=== PATIENT | male | born 1980 | race Caucasian/White ===

== ENCOUNTER 2017-02-14 08:54 | Inpatient (IN) | payer BC, OTHER ==
[~2017-02-14] VITALS: Ht 185.4 cm; Wt 93.0 kg
--- NOTE | 2017-02-14 15:20 | NUR ---
PRE-ADMISSION NOTE RECEIVED PT AT INTAKE DOWNSTAIRS. PT A/OX4, PT APPEARED HIGHLY AGITATED, IRRITABLE, ANXIOUS, RESTLESS, TREMORS SEEN AND ENLARGED PUPIL SIZE. PT REPORTED HAVING STOMACH CRAMPS, MUSCLE AND JOINT ACHES, RUNNY NOSE, TEARING, HAVING CHILLS, AND FEELINGS OF ALTERNATING HOT AND COLD. PT INITIAL VS WERE BP: 120/63, P: 70, RR: 18, O2 SAT: 97%. PT IS AMBULATORY WITHOUT ASSISTANCE. PT STATES HE HAS NKA TO DRUGS OR FOOD. PT STATES HE HAS NO MEDICAL HX AND NO HX OF SZ. EDUCATED PT WITH UNIT RULES.
[2017-02-14] MEDS ORDERED: diphenhydrAMINE 50 MG CAPSULE PO PRN (15:45)
[2017-02-14] MEDS ORDERED: BUPRENORPHINE HCL 2 MG TAB.SUBL SL PRN (15:45)
[2017-02-14] MEDS ORDERED: LOPERAMIDE HCL 2 MG CAPSULE PO PRN ×2 (15:45)
[2017-02-14] MEDS ORDERED: LORAZEPAM 2 MG/1 ML VIAL IM PRN (15:45)
[2017-02-14] MEDS ORDERED: MIRALAX 17 GM POWD.PACK PO PRN (15:45)
[2017-02-14] MEDS ORDERED: ACETAMINOPHEN 325 MG TABLET PO PRN (15:45)
[2017-02-14] MEDS ORDERED: DIAZEPAM 10 MG TABLET PO PRN (15:45)
[2017-02-14] MEDS ORDERED: ONDANSETRON ODT 4 MG TAB.RAPDIS SL PRN (15:45)
[2017-02-14] MEDS ORDERED: DICYCLOMINE HCL 20 MG TABLET PO PRN (15:45)
[2017-02-14] MEDS ORDERED: ONDANSETRON 4 MG/2 ML VIAL IM PRN (15:45)
[2017-02-14] MEDS ORDERED: MAG HYDROX/AL HYDROX/SIMETH 30 ML LIQUID UDC PO PRN (15:45)
[2017-02-14] MEDS ORDERED: DIAZEPAM 5 MG TABLET PO PRN (15:45)
--- NOTE | 2017-02-14 15:50 | NUR ---
ADMISSION NOTE PT IS ADMITTED ON THE UNIT ON 02/14/17 AT 1545 FOR BENZO, ETOH, OPIATE WITHDRAWALS. PT SKIN AND BODY CHECK IS COMPLETED. SKIN IS WARM, DRY, INTACT, AND NO CONTRABAND FOUND. PT WEIGHS 205 LBS, HT 6 FEET 1 IN. PT A/OX4, PT APPEARED HIGHLY AGITATED, IRRITABLE, ANXIOUS, RESTLESS, TREMORS SEEN AND ENLARGED PUPIL SIZE. PT REPORTED HAVING STOMACH CRAMPS, MUSCLE AND JOINT ACHES, RUNNY NOSE, TEARING, HAVING CHILLS, AND FEELINGS OF ALTERNATING HOT AND COLD. PT RESPIRATIONS EVEN AND UNLABORED. LUNG SOUNDS CLEAR BILATERALLY. DENIES SOB. PT DENIES HALLUCINATIONS AT THIS TIME. PT ABD SOFT AND TENDER. CAP REFILL <3 SEC. PT COWS WERE 17 AND CIWA 23. PT INITIAL VS WERE BP: 120/63, P: 70, RR: 18, O2 SAT: 97%. PT IS AMBULATORY WITHOUT ASSISTANCE. PT STATES HE HAS NKA TO DRUGS OR FOOD. PT STATES HE HAS A PMH OF SEVERE ANXIETY AND NO HX OF SZ. PT IS THE PRIMARY SOURCE OF INFORMATION. SPEECH IS CONSISTENT AND COHERENT. PT STATES HE DOES NOT HAVE A PCP, REQUESTED TO BE FULL CODE, REFUSED PNA AND FLU VACCINATIONS. PT IS ON A REGULAR DIET, ON FALL AND SZ PRECAUTIONS. PT NOT A CANDIDATE FOR MRSA. PT STATES LONGEST SOBRIETY IS 6 MONTHS IN 2012. PT STATES HE HAS NO FAMILY HX OF DRUG ABUSE. PT DENIES SI/HI. PT BROUGHT HOME MED: SEROQUEL 100 MG. PT STATES HE SMOKED A PACK OF CIGARETTES DAILY. SUBSTANCE ABUSE HX: 1. XANAX AND/OR KLONOPIN 20 MG DAILY FOR THE PAST 1 YEAR. LAST USED 20 MG 02/13/17 AT 0700. PT HAS BEEN USING BENZOS FOR 17 YRS. 2. ETOH VODKA A 5TH DAILY FOR THE PAST YR. LAST USED A 5TH OF VODKA AT 02/13/17 AT 0700. PT HAS BEEN USING FOR 17 YRS. 3. HEROIN 2 GRAMS DAILY IV FOR THE PAST 1 YEAR. LAST USED 2 GRAMS AT 02/13/17 A T 0700. PT HAS BEEN USING SINCE 2012. 4. PT STATED HE HAS BEEN PRESCRIBED SUBUTEX 24 MG PO DAILY FOR THE PAST 3 YEARS. LAST USED IS UNKNOWN. P 5. PT STATE HE USES COCAINE UNKNOWN AMOUNT OCCASIONALLY. LAST USED UNKNOWN. PT STATE HE DOES NOT REMEMBER WHEN HE STARTED USING COCAINE. PT HAS BEEN ESCORTED TO HIS ROOM. PT ORIENTED TO UNIT, ROOM, SMOKING RULES, UNIT RULES, HOW TO USE THE CALL LIGHT, AND VERBALIZED UNDERSTANDING. SIDE RAILS UP X2, BED IN LOWEST POSITION. CALL LIGHT WITHIN REACH. ALL ADMITTING ORDERS HAVE BEEN PLACED. PT REFUSED SARAN B1 IM INJECTION.
[2017-02-14 16:00] VITALS: BP 120/63
[2017-02-14] MEDS ORDERED: THIAMINE HCL 200 MG/2 ML VIAL IM ONE (16:00)
[2017-02-14] MEDS: BUPRENORPHINE HCL 2 MG TAB.SUBL SL SCH ×2 (16:07→20:12)
[2017-02-14] MEDS: DIAZEPAM 10 MG TABLET PO SCH ×2 (16:07→20:12)
[2017-02-14 16:39] LABS: *AMPHETAMINE, URINE NEGATIVE (NEGATIVE); *BARBITURATE, URINE NEGATIVE (NEGATIVE); *CANNABINOID, URINE POSITIVE (NEGATIVE); *COCCAINE, URINE POSITIVE (NEGATIVE); *OPIATE, URINE NEGATIVE (NEGATIVE); *PHENCYCLIDINE SCREEN,URINE NEGATIVE (NEGATIVE)
[2017-02-14] MEDS: GABAPENTIN 400 MG CAPSULE PO SCH ×2 (17:45→20:11)
[2017-02-14 17:50] VITALS: BP 122/67
[2017-02-14] MEDS ORDERED: BUPRENORPHINE HCL 2 MG TAB.SUBL SL ONE (18:30)
[2017-02-14] MEDS ORDERED: DIAZEPAM 10 MG TABLET PO ONE (18:30)
--- NOTE | 2017-02-14 18:35 | NUR ---
One time Valium and Subutex Pt reports chills, skin crawling, headache, nausea, body aches, runny nose, anxiety. He is noted to be agitated and restless. COWS [address] Gay. Orders received for one time Valium and Subutex.
[2017-02-14] MEDS ORDERED: TIZA4CAP PO (18:44)
[2017-02-14] MEDS ORDERED: QUET100T PO (18:44)
[2017-02-14] MEDS ORDERED: GABA800T2 PO (18:45)
--- NOTE | 2017-02-14 18:59 | NUR ---
END OF SHIFT COWS AND CIWAS ELEVATED ON ADMISSION. DR DEGROOT ORDERED SUBUTEX AND VALIUM TO BE ADMINISTERED. MEDICATIONS NOT EFFECTIVE. COWS AND CIWAS NOT AFFECTED. NOTIFIED MD. ONE TIME ORDER WAS PLACED FOR SUBTEX AND VALIUM. ENCOURAGED PT TO INCREASE FLUIDS TO FACILITATE IN DETOX PROCESS. SIDE RAILS UP X2, CALL LIGHT WITHIN REACH. SZ AND FALL PRECAUTIONS TAKEN. WILL GIVE ALL PERTINENT DATA AND ENDORSEMENT TO WARRANTY CLERK NURSE.
--- NOTE | 2017-02-14 19:30 | NUR ---
One time Valium and Subutex reassessment One time Valium effective at reducing CIWA score to 10. One time Subutex effective at reducing COWS to 9. Pt reports feeling somewhat better and a little less anxious but is still experiencing some symptoms.
[2017-02-14 20:00] VITALS: BP 119/78
--- NOTE | 2017-02-14 20:00 | NUR ---
2000 Patient received awake, alert, somewhat jittery and anxious in appearance and standing at nurse's station, requesting pass to go downstairs for smoke. Patient responds to nurse's greeting and introduction with eye contact and requests for, " I have to have my Seroquel that I take every night to sleep and Zanaflex, the muscle relaxer. These are must haves!" Patient is oriented to person, place, day, date, time and his personal situation. Patient's skin is noted clean, warm, dry and intact, though patient states, " When you detox from opiates, your back sweats mostly." Patient's back noted dry at this time. Patient denies any specific pain but states that he does feel anxious and shakey. Patient then states, " Right now, I need to go and have a cigarette". Explanation given to patient that V/S and new nurse assessment needs to be done with him, before he is allowed to go smoke. Patient then escorted to his room # [id number] for nurse assess and V/S. Gait is steady. Vital signs are: 98.7 -70-20 119/78, O2 Sat 98%, COWS 7, CIWA 7. Patient answers nurse assess questions in abrupt and impatient manner, though he is overall fairly cooperative with some prompting. Patient was admitted this afternoon for: Xanax/Klonopin, Alcohol (Vodka), Heroin, Subutex and Cocaine withdrawal and he will be on both a 5-Day Subutex and a 5-Day Valium taper for withdrawal symptoms. Bed is locked and in lowest position, bed rails are up X 2 and call light on patient's bed. Patient went downstairs to [facility] for smoke after V/S and assessment.
[2017-02-14 20:09] LABS: ETHANOL < 3 MG/DL (0-0)
[2017-02-14 20:10] LABS: BASOPHILS % (AUTO) 0.4 % (0.0-2.0); EOSINOPHILS # (AUTO) 0.2 K/uL (0.0-0.7); HEMATOCRIT 40.7 % (36.7-47.1); HEMOGLOBIN 12.8 g/dL (12.5-16.3); LYMPHOCYTES # (AUTO) 1.6 K/uL (20.0-40.0); LYMPHOCYTES % (AUTO) 35.8 % (20.5-51.5); MEAN CORPUSCULAR HEMOGLOBIN 20.7 uug (23.8-33.4); MEAN CORPUSCULAR HGB CONC 31 g/dL (32.5-36.3); MEAN CORPUSCULAR VOLUME 65.8 fL (73.0-96.2); MONOCYTES # (AUTO) 0.4 K/uL (2.0-10.0); NEUTROPHILS # (AUTO) 2.1 K/uL (1.8-8.9); NEUTROPHILS % (AUTO) 48.8 % (38.5-71.5); PLATELET COUNT (AUTO) 193 K/uL (152-348); RED BLOOD CELL COUNT(AUTO) 6.19 MIL/uL (4.06-5.63); WHITE BLOOD COUNT (AUTO) 4.4 K/uL (3.6-10.2)
[2017-02-14 20:21] LABS: NEUTROPHILS % (MANUAL) 0 % (42-75)
[2017-02-14] MEDS ORDERED: QUETIAPINE FUMARATE 100 MG TABLET PO ONE (20:30)
[2017-02-14 20:37] LABS: ALANINE AMINOTRANSFERASE 60 U/L (16-63); ALKALINE PHOSPHATASE 58 U/L (50-136); AMYLASE 62 U/L (25-115); ASPARTATE AMINOTRANSFERASE 23 U/L (15-37); BILIRUBIN,TOTAL 0.5 mg/dL (0.2-1.0); CARBON DIOXIDE 28 mmol/L (21-32); CHLORIDE 103 mmol/L (98-107); CREATININE 1.2 mg/dL (0.6-1.3); GLUCOSE 102 mg/dL (74-106); MAGNESIUM 1.9 mg/dL (1.8-2.4); POTASSIUM 4.5 mmol/L (3.5-5.1); TOTAL PROTEIN, SERUM 7.3 g/dL (6.4-8.2); UREA NITROGEN, BLOOD 15 mg/dL (7-18)
[2017-02-14] MEDS ORDERED: QUETIAPINE FUMARATE 100 MG TABLET ONE (20:43)
--- NOTE | 2017-02-15 | NUR ---
Patient is sleeping soundly with eyes closed and respirations quiet, deep, even, unlabored at 12. Patient does not wish to be awakened for V/S to be done at this time. COWS, CIWA ordered Q 4hrs while awake.
--- NOTE | 2017-02-15 04:00 | NUR ---
Patient refused to be awakened at this time for V/S. V/S deferred. Eyes closed and respirations even, unlabored at 12.
--- NOTE | 2017-02-15 06:30 | NUR ---
0630 Patient slept intermittently for a total of 5 hours and he had 3 voids and no stools. Patient had no prn medications this shift. V/SS afebrile, last COWS 7, last CIWA 7 at 1999. Patient did not wish to be disturbed for V/S and he was sleepy and uncooperative when aroused for assessment. Patient is presently resting comfortably with eyes closed and respirations unlabored at 12.
--- NOTE | 2017-02-15 07:50 | NUR ---
START OF SHIFT RECEIVED PT RESTING IN BED, A/O X4. PT APPEARED HIGHLY AGITATED, IRRITABLE, ANXIOUS, RESTLESS. PT REPORTED HAVING STOMACH CRAMPS, MUSCLE AND JOINT ACHE, ANXIETY, CHILLS, AND FEELING HOT. PT RESPIRATIONS EVEN AND UNLABORED. DENIES SOB. PT DENIES HALLUCINATIONS AT THIS TIME. ENOURAGED PT TO DRINK MORE FLUIDS TO FACILITATE DETOX PROCESS. SIDE RAILS UP X2, BED IN LOWEST POSITION. CALL LIGHT WITHIN REACH. WILL CONTINUE TO MONITOR.
[2017-02-15 08:00] VITALS: BP 121/54
[2017-02-15] MEDS ORDERED: TUBERCULIN,PURIF.PROT.DERIV. 5 TU/0.1 ML TEST ID ONE (09:00)
[2017-02-15] MEDS: GABAPENTIN 400 MG CAPSULE PO SCH (09:08)
[2017-02-15] MEDS: THIAMINE HCL 100 MG TABLET PO SCH (09:08)
[2017-02-15] MEDS: MULTIVITAMINS,THERAPEUTIC TABLET PO SCH (09:09)
[2017-02-15] MEDS: FOLIC ACID 1 MG TABLET PO SCH (09:09)
[2017-02-15] MEDS: DIAZEPAM 10 MG TABLET PO SCH ×7 (09:09→21:00)
[2017-02-15] MEDS: BUPRENORPHINE HCL 2 MG TAB.SUBL SL SCH ×4 (09:09→20:17)
[2017-02-15] MEDS: DIAZEPAM 10 MG TABLET PO PRN ×3 (10:22→18:54)
--- NOTE | 2017-02-15 10:24 | NUR ---
CIWA 21 Valium 20mg po prn given Pt extremely agitated and anxious
--- NOTE | 2017-02-15 11:25 | NUR ---
REASSESSMENT VALIUM 2O MG PO PRN WAS GIVEN AND UPON REASSESSMENT PT STATED MED HELPED HIS ANXIETY SOMEWHAT. WILL CONTINUE TO MONITOR.
[2017-02-15 12:00] VITALS: BP 110/68
[2017-02-15] MEDS ORDERED: PHENOBARBITAL 32.4 MG TABLET PO ONE (12:30)
[2017-02-15] MEDS: GABAPENTIN 300 MG CAPSULE PO SCH ×3 (12:31→20:14)
--- NOTE | 2017-02-15 14:11 | NUR ---
CIWA 26 Valium 20mg po prn given C/O anxiety/12/15 Agitation 12/15
--- NOTE | 2017-02-15 15:10 | NUR ---
REASSESSMENT PT GIVEN VALIUM 20 MG PO PRN AND AT REASSESSMENT PT STATED IT WAS EFFECTIVE BUT NOTED THAT IT WAS MAINLY DUE TO HAVING BOTH VALIUM AND PHENOBARBITAL.
[2017-02-15 16:00] VITALS: BP 117/69
--- NOTE | 2017-02-15 18:54 | NUR ---
PRN VALIUM 20 MG PO PRN GIVEN FOR PT C/O OF HIGH ANXIETY AND S/S OF W/D. CIWA 20.
--- NOTE | 2017-02-15 19:15 | NUR ---
START OF SHIFT Received 36 year old male patient admitted on 02/14/17 for Benzodiazepine, ETOH, Heroin, Subutex and Cocaine. Pt is full code with NKA. He reports a PMHx of anxiety. He reports using Xanax/Klonopin 20 mg daily for 1 year. Last dose was 02/13/17. ETOH (vodka)1/5th daily for 1 year. Last dose was 02/13/17. Heroin 2 gram IV daily for 1 year. Last dose was 02/13/17. Subutex 24 mg daily. And occasional use of cocaine. He is placed on a 5 day subutex and 5 day modifed valium taper and is tolerating well. Per endorsement, pt received phenobarbital x1 and PRN Valium 20 mg . Pt is alert and oriented x4, noted to be anxious and restless. Breathing even and unlabored. Safety measures in place. Will continue to monitor.
--- NOTE | 2017-02-15 19:26 | NUR ---
END OF SHIFT PT A/O X4. PT APPEARED HIGHLY AGITATED, IRRITABLE, ANXIOUS, AND RESTLESS. PT REPORTED HAVING STOMACH CRAMPS, MUSCLE AND JOINT PAIN, ANXIETY, CHILLS, AND FEELING HOT. PT WAS SEEN PACING IN THE HALLWAYS THROUGHOUT THE DAY. PT RESPIRATIONS EVEN AND UNLABORED. DENIES SOB AND NAUSEA. PT DENIES HALLUCINATIONS AT THIS TIME. MD CHANGED VALIUM TAPER DOSAGE TO 20 MG AND ADDED ONE TIME ORDER OF PHENOBARBITAL AT 1230 AND ONE FOR 2100. PT REPORTED LESS ANXIETY AFTER BEING PHENOBARBITAL MED. PT REF TB; NOTIFIED. ENOURAGED PT TO DRINK MORE FLUIDS TO FACILITATE DETOX PROCESS. SIDE RAILS UP X2, BED IN LOWEST POSITION. CALL LIGHT WITHIN REACH. WILL GIVE ALL PERTINENT DATA AND ENDORSEMENT TO KAIAKO KOHANGA REO NURSE.
[2017-02-15 20:00] VITALS: BP 116/65
[2017-02-15] MEDS ORDERED: PHENOBARBITAL 32.4 MG TABLET PO SCH (21:00)
[2017-02-15] MEDS: QUETIAPINE FUMARATE 100 MG TABLET PO PRN (22:40)
--- NOTE | 2017-02-15 22:40 | NUR ---
PRN SEROQUEL Pt complains of inability to fall asleep. PRN Seroquel administered as ordered. Safety measures in place. Will continue to monitor effectiveness.
--- NOTE | 2017-02-15 23:40 | NUR ---
PRN SEROQUEL REASSESSMENT PRN medication effective. Pt lying in bed with eyes closed noted to be asleep. Breathing even and unlabored. Safety measures in place. Will monitor.
[2017-02-16 00:02] VITALS: BP 122/79
--- NOTE | 2017-02-16 04:00 | NUR ---
VITALS REFUSED, COWS/CIWA DEFERRED 0400 vitals refused. COWS and CIWA deferred d/t pt lying in bed with eyes closed noted to be asleep. Breathing even and unlabored. Safety measures in place. Will monitor.
--- NOTE | 2017-02-16 07:06 | NUR ---
END OF SHIFT Pt is a 36 year old male patient admitted on 02/14/17 for Benzodiazepine, ETOH, Heroin, Subutex and Cocaine. Pt is full code with NKA. He reports a PMHx of anxiety. He continues on a 5 day Subutex and 5 day modified Valium taper and is tolerating well. He received a one time order of phenobarbital and at 2240 received PRN Seroquel. He slept a total of 6 hrs, Intake: 500mL, Void: x2, BM:0, COWS:Pt is alert and oriented x4, noted to be anxious and restless. Breathing even and unlabored. Safety measures in place. Will endorse to AM shift.
--- NOTE | 2017-02-16 07:30 | NUR ---
START OF SHIFT Pt 36 y/o male admitted for benzo, etoh, opiate withdrawal. Pt received in room awake pacing. Pt alert and oriented to name, place, and time. Perrla. Skin warm and moist to touch. Respirations even and unlabored. Pt anxious and restless. Pressured speech noted. Pt very irritable this morning. It was reported that pt slept for 6 hours this morning. Bed on lowest position with side rails x2 up for safety. Call light within reach. No distress noted at this time.
[2017-02-16 08:00] VITALS: BP 110/60
[2017-02-16] MEDS: THIAMINE HCL 100 MG TABLET PO SCH (08:23)
[2017-02-16] MEDS: FOLIC ACID 1 MG TABLET PO SCH (08:23)
[2017-02-16] MEDS: GABAPENTIN 300 MG CAPSULE PO SCH ×4 (08:24→20:13)
[2017-02-16] MEDS: MULTIVITAMINS,THERAPEUTIC TABLET PO SCH (08:24)
[2017-02-16] MEDS: BUPRENORPHINE HCL 2 MG TAB.SUBL SL SCH ×4 (08:25→20:13)
[2017-02-16] MEDS: DIAZEPAM 10 MG TABLET PO SCH ×3 (08:29→16:14)
--- NOTE | 2017-02-16 08:30 | NUR ---
PRN Pt with c/o nausea. Zofran ODT prn per MD order given and tolerated well.
[2017-02-16] MEDS ORDERED: DIAZEPAM 10 MG TABLET PO SCH ×2 (09:00→21:00)
[2017-02-16] MEDS ORDERED: BUPRENORPHINE HCL 2 MG TAB.SUBL SL SCH (09:00)
[2017-02-16] MEDS ORDERED: DIAZEPAM 10 MG TABLET PO ONE (09:27)
--- NOTE | 2017-02-16 09:30 | NUR ---
PRN EVAL Pt denies any nausea at this time.
--- NOTE | 2017-02-16 09:33 | NUR ---
ONE TIME Pt with ciwa=10. MD aware with orders for valium 10mg po prn per MD order given and tolerated well.
--- NOTE | 2017-02-16 10:33 | NUR ---
ONE TIME EVAL Pt with ciwa=5.
[2017-02-16] MEDS ORDERED: DIAZEPAM 5 MG TABLET PO PRN (11:30)
[2017-02-16] MEDS ORDERED: OXCARBAZEPINE 300 MG TABLET PO ONE (11:30)
[2017-02-16] MEDS ORDERED: DIAZEPAM 10 MG TABLET PO PRN (11:30)
[2017-02-16 12:00] VITALS: BP 114/66
[2017-02-16 12:07] LABS: HEPATITIS B SURFACE AG Negative (Negative)
--- NOTE | 2017-02-16 13:14 | NUR ---
MD COMMUNICATION Notified Dr. Diaz of patients behavior, agitated and mood changes, pt appears hyper. T.O for Seroquel 25mg Q4H PRN. Primary nurse made aware.
[2017-02-16] MEDS ORDERED: QUETIAPINE FUMARATE 25 MG TABLET PO PRN (13:15)
--- NOTE | 2017-02-16 13:30 | NUR ---
PRN REFUSED Pt offered seroquel po prn per MD order. Pt refused stating, " I don't want seroquel! It just makes me sleepy!". Explained to pt that he is very anxious and agitated and that the seroquel po prn per MD order would help. Pt still refused.
[2017-02-16] MEDS: DIAZEPAM 10 MG TABLET PO PRN ×3 (14:04→22:14)
--- NOTE | 2017-02-16 14:05 | NUR ---
PRN Pt with ciwa=10. Valium 10mg po prn per MD order given and tolerated well.
--- NOTE | 2017-02-16 15:04 | NUR ---
PRN EVAL Pt with Ciwa=7 noted.
[2017-02-16 16:00] VITALS: BP 126/79
--- NOTE | 2017-02-16 16:25 | NUR ---
PRN REFUSAL Pt agitated. Pt offered seroquel po prn per MD order, but refused.
--- NOTE | 2017-02-16 16:26 | NUR ---
PT REFUSAL Pt very anxious and restless. Pt offered vitaril po prn per order, but refused. Addendum: 02/16/17 at 1627 by NICHOLAS INGRAM RN incorrect title PRN REFUSAL
--- NOTE | 2017-02-16 16:26 | NUR ---
PRN REFUSAL Pt very anxious and restless. Pt offered catapres po prn per MD order , but refused.
--- NOTE | 2017-02-16 18:14 | NUR ---
PRN pt with ciwa=11. Pt very agitated, hyperverbal, and restless.
--- NOTE | 2017-02-16 18:48 | NUR ---
END OF SHIFT Pt 36 y/o male admitted for benzo, etoh, opiate withdrawal. Pt alert and oriented to name, place, and time. Perrla. Skin warm and slightly moist to touch. Respirations even and unlabored. Bilateral hand tremors noted. Pt with episode of chills and sweats this afternoon. Pt with periods of anxiety and agitation throughout the day, but pt was refusing prn medications to help with agitation and anxiety throughout the day. Pt hard to redirect at times throughout the day. Pt was intrusive at times this morning, getting very close. Pt isolative to room throughout the day. Pt did not attend group activity. Pt was seen by MD today. Pt partially medication compliant and tolerated well. Bed on lowest position with side rails x2 up for safety. Call light within reach. No distress noted at this time.
--- NOTE | 2017-02-16 19:53 | NUR ---
Start of Shift Notes Received 36 y/o male admitted on 01/15/2017 for benzo, etoh, opiate withdrawal. Px alert and oriented to name, place, and time. Perrla. Skin warm and moist to touch. Px has NKA, on regular diet and Full Code. During the rounds at 1930, px verbalized that his anxiety is very high, body aches is 9/10, has hot/cold chills, stomach cramps, and tremors are mild. Respirations even and unlabored. Bed on lowest position with side rails x2 up for safety. Call light within reach. We'll continue to monitor.
[2017-02-16 20:00] VITALS: BP 129/75
[2017-02-16] MEDS: OXCARBAZEPINE 300 MG TABLET PO SCH (20:13)
[2017-02-16] MEDS: IBUPROFEN 600 MG TABLET PO PRN (20:14)
--- NOTE | 2017-02-16 20:14 | NUR ---
PRN Ibuprofen Px complained of body aches 10/ as verbalized. Px refused Robaxin. Motrin 600 mg/tab, 1 tab given PO as PRN med. We'll continue to monitor.
[2017-02-16] MEDS: HYDROXYZINE PAMOATE 25 MG CAPSULE PO PRN (22:14)
[2017-02-16] MEDS: QUETIAPINE FUMARATE 100 MG TABLET PO PRN (22:15)
[2017-02-16] MEDS: CLONIDINE HCL 0.1 MG TABLET PO PRN (22:15)
--- NOTE | 2017-02-16 22:15 | NUR ---
PRN meds Px complained of high anxiety and needed to sleep. Seroquel 100 mg/tab, 1 tab; Vistaril 25 mg/cap, 2caps; Clonidine 0.1 mg/tab, 1 tab; Valium 10 mg/tab, 1 tab given PO as PRN meds. We'll continue to monitor.
[2017-02-16] MEDS: MAGNESIUM HYDROXIDE 30 ML LIQUID UDC PO PRN (22:27)
--- NOTE | 2017-02-16 22:27 | NUR ---
PRN MOM Px complained of constipation for 3-4 days. Milk of magnesia 30 ml given PO as PRN med. We'll continue to monitor.
[2017-02-17] VITALS: BP 111/61
[2017-02-17 04:00] VITALS: BP 108/63
--- NOTE | 2017-02-17 04:00 | NUR ---
COWS and CIWA deferred COWS and CIWA deferred due to the px is asleep. To assess if the px is awake per doctor's order. We'll continue to monitor.
--- NOTE | 2017-02-17 07:15 | NUR ---
End of Shift Notes 36 y/o male admitted on 01/15/2017 for benzo, etoh, opiate withdrawal. Px alert and oriented to name, place, and time. Perrla. Skin warm and moist to touch. Px has NKA, on regular diet and Full Code. During the shift, px verbalized that his anxiety is on the roof, body aches is 9/10, has hot/cold chills, stomach cramps, and tremors are mild. At 2013, Px complained of body aches 10/10 as verbalized. Px refused Robaxin. Motrin 600 mg/tab, 1 tab given PO as PRN med. At 2214, Px complained of high anxiety and needed to sleep. Seroquel 100 mg/tab, 1 tab; Vistaril 25 mg/cap, 2caps; Clonidine 0.1 mg/tab, 1 tab; Valium 10 mg/tab, 1 tab given PO as PRN meds. At 2226, Px complained of constipation for 3-4 days. Milk of magnesia 30 ml given PO as PRN med. Oral intake of 1,300 ml, voided 3x, no BM. Slept for 5 hours. Respirations are even and unlabored. Bed on lowest position with side rails x2 up for safety. Call light within reach. We'll continue to monitor.
--- NOTE | 2017-02-17 07:50 | NUR ---
START OF SHIFT PT IS A/O X4, RESPIRATIONS EVEN AND UNLABORED, HIGHLY AGGITATED, APPEARS MANIC, STATES THAT ANOTHER PATIENT BEING YELLING IN THE HALLWAYS IS TRIGGERING HIM AND MAKING HIM HIGHLY AGGITATED. PT C/O OF GENERALIZED BODY ACHES, PINS AND NEEDLES SENSATION ON SKIN, VERBALIZED HIS ANXIETY IS THROUGH THE ROOF. SKIN IS WARM AND MOIST. ENCOURAGED PT TO DRINK MORE FLUIDS TO HELP IN DETOX PROCESS. BED IN LOWEST POSITION AND SIDE RAILS UPX2, CALL LIGHT WITHIN REACH, SAFETY MEASURES TAKEN. WILL CONTINUE TO MONITOR AND PROVIDE SUPPORT.
[2017-02-17 08:00] VITALS: BP 129/66
[2017-02-17] MEDS: OXCARBAZEPINE 300 MG TABLET PO SCH ×5 (08:12→20:50)
[2017-02-17] MEDS: FOLIC ACID 1 MG TABLET PO SCH (08:12)
[2017-02-17] MEDS: GABAPENTIN 300 MG CAPSULE PO SCH ×3 (08:12→20:49)
[2017-02-17] MEDS: THIAMINE HCL 100 MG TABLET PO SCH (08:13)
[2017-02-17] MEDS: MULTIVITAMINS,THERAPEUTIC TABLET PO SCH (08:14)
[2017-02-17] MEDS: BUPRENORPHINE HCL 2 MG TAB.SUBL SL SCH ×3 (08:14→20:49)
[2017-02-17] MEDS ORDERED: CLONIDINE HCL 0.1 MG TABLET PO SCH (09:00)
[2017-02-17] MEDS ORDERED: BUPRENORPHINE HCL 2 MG TAB.SUBL SL SCH ×2 (09:00→15:00)
[2017-02-17] MEDS ORDERED: DIAZEPAM 10 MG TABLET PO SCH (09:00)
[2017-02-17] MEDS ORDERED: DIAZEPAM 5 MG TABLET PO SCH (09:00)
[2017-02-17] MEDS: DIAZEPAM 10 MG TABLET PO PRN (10:58)
--- NOTE | 2017-02-17 10:58 | NUR ---
PRN PT C/O OF HIGH ANXIETY AND STATED "MY ANXIETY IS THROUGH THE ROOF." CIWA 17. VALIUM 10 MG PO PRN GIVEN.
[2017-02-17 12:00] VITALS: BP 126/71
--- NOTE | 2017-02-17 12:00 | NUR ---
REASSESSMENT PT APPEARED SLIGHTLY LESS ANXIOUS BUT STILL RESTLESS AND AGITATED. WILL CONTINUE TO MONITOR AND PROVIDE SUPPORT.
[2017-02-17] MEDS: CLONIDINE HCL 0.1 MG TABLET PO SCH ×3 (14:39→20:49)
[2017-02-17] MEDS: DIAZEPAM 10 MG TABLET PO SCH ×3 (14:40→20:50)
[2017-02-17 16:00] VITALS: BP 131/82
[2017-02-17] MEDS: IBUPROFEN 600 MG TABLET PO PRN (17:51)
--- NOTE | 2017-02-17 17:51 | NUR ---
PRN PT C/O GENERALIZED BODY ACHES AND MOTRIN 600 MG PO PRN WAS GIVEN.
--- NOTE | 2017-02-17 18:52 | NUR ---
REASSESSMENT PT STATED MEDICATION WAS PARTIALLY EFFECTIVE FOR HIS GENERALIZED BODY ACHES 5/10.
--- NOTE | 2017-02-17 19:21 | NUR ---
END OF SHIFT PT IS A/O X4, RESPIRATIONS EVEN AND UNLABORED, HIGHLY AGGITATED, RESTLESS, APPEARS MANIC, APPEARS TO HAVE ALTERNATING MOOD CHANGES . PT C/O OF GENERALIZED BODY ACHES, SWEATING PINS AND NEEDLES SENSATION ON SKIN, VERBALIZED HIS ANXIETY IS THROUGH THE ROOF. SKIN IS WARM AND MOIST. PT LAST COWS 12 AND CIWA 12. PT HAS BEEN GIVEN VALIUM 10 MG PO PRN AT 1058 AND MOTRIN 600 MG PO PRN AT 1751. ENCOURAGED PT TO DRINK MORE FLUIDS TO HELP IN DETOX PROCESS. BED IN LOWEST POSITION AND SIDE RAILS UPX2, CALL LIGHT WITHIN REACH, SAFETY MEASURES TAKEN. WILL GIVE ALL PERTINENT DATA AND ENDORSEMENT TO THIRD MILLER NURSE.
--- NOTE | 2017-02-17 19:22 | NUR ---
Start of shift note Received report from day shift nurse. Pt is a 36 yo male, A+Ox4, presenting to [facility] for Opiate/Benzo/ETOH/Cocaine dependence. Pt has NKA, is on Full code status, and on Regular diet. Pt is on Fall and Seizure precautions. Pt has HX of Anxiety. Pt is on 5 day Subutex and 5 day Valium tapers, tolerated well. No s/s of distress noted at this time. Respirations even and unlabored. Will continue to monitor.
[2017-02-17 20:44] VITALS: BP 111/68
--- NOTE | 2017-02-17 22:15 | NUR ---
PRN Seroquel Pt c/o inability to sleep and requested for PRN Seroquel. Medication given and tolerated well. Will reassess within 1 HR. Will continue to monitor.
--- NOTE | 2017-02-17 23:10 | NUR ---
PRN Seroquel Reassessment Medication effective. Pt is resting well in bed. No s/s of ASE/distress noted at this time. Respirations even and unlabored. Will continue to monitor.
[2017-02-18 00:20] VITALS: BP 104/65
[2017-02-18 04:31] VITALS: BP 112/69
--- NOTE | 2017-02-18 06:52 | NUR ---
End of shift note Pt is a 36 yo male, A+Ox4, presenting to [facility] for Opiate/Benzo/ETOH/Cocaine dependence. Pt has NKA, is on Full code status, and on Regular diet. Pt is on Fall and Seizure precautions. Pt has HX of Anxiety. Pt is on 5 day Subutex and 5 day Valium tapers, tolerated well. Pt was given PRN Seroquel @3905. Pt slept for a total of 8 HRS. Last COWS: 3 and Last CIWA: 3. No s/s of distress noted at this time. Respirations even and unlabored. Will endorse to day shift nurse.
--- NOTE | 2017-02-18 07:11 | NUR ---
Start of Shift Notes: Received endorsement from night nurse. Patient received in his room. Alert and oriented x 4. Verbally responsive. Able to make needs known. Respirations even and unlabored. No SOB noted. Skin warm and moist to touch. Abdomen soft and non-distended with (+) BS in all 4 quadrants. No complains of N/V/D or constipation noted. Bladder non-distended. No complains of dysuria noted. Patient is a 36 year old male admitted for BZO/ETOH/opiate and cocaine dependence who was placed on a 5-day Subutex and 5-day Valium taper as ordered. No adverse reactions noted. Has past medical hx of anxiety. NKA. FULL CODE. Regular diet. On fall and seizure precautions. Educated patient on his current plan of care for the day and his medication regimen. Encouraged oral fluid intake and encouraged group participation to learn new skills to prevent relapse. Will continue to monitor.
[2017-02-18 08:00] VITALS: BP 112/72
[2017-02-18] MEDS: MULTIVITAMINS,THERAPEUTIC TABLET PO SCH (08:11)
[2017-02-18] MEDS: THIAMINE HCL 100 MG TABLET PO SCH (08:12)
[2017-02-18] MEDS: METHOCARBAMOL 750 MG TABLET PO PRN (08:12)
[2017-02-18] MEDS: CLONIDINE HCL 0.1 MG TABLET PO SCH ×4 (08:12→21:01)
[2017-02-18] MEDS: DIAZEPAM 10 MG TABLET PO SCH ×3 (08:12→21:00)
[2017-02-18] MEDS: GABAPENTIN 300 MG CAPSULE PO SCH ×3 (08:12→21:00)
[2017-02-18] MEDS: OXCARBAZEPINE 300 MG TABLET PO SCH ×3 (08:12→14:17)
--- NOTE | 2017-02-18 08:12 | NUR ---
Robaxin 750 mg PO given: Patient verbalized complains of 8/10 myalgia related to opiate withdrawal. Non-pharmacolgical interventions provided but ineffective. Medicated patient with Robaxin 750 mg PO as ordered. Will monitor for effectiveness.
[2017-02-18] MEDS: FOLIC ACID 1 MG TABLET PO SCH (08:13)
--- NOTE | 2017-02-18 08:21 | NUR ---
Clonidine/Trileptal at 0900 not administered: Patient refused to take Clonidine and Trileptal at 0900. Educated patient on the risk and benefits involved. Patient still strongly refused. Patient states "It makes me feel tired. I don't want it, thank you!" Respected patient's rights. Will continue to monitor and encourage the patient to comply throughout the day.
[2017-02-18] MEDS ORDERED: DIAZEPAM 5 MG TABLET PO SCH ×2 (09:00)
[2017-02-18] MEDS ORDERED: BUPRENORPHINE HCL 2 MG TAB.SUBL SL SCH ×2 (09:00)
--- NOTE | 2017-02-18 09:12 | NUR ---
Re-assessment: Per patient, PRN Robaxin was mildly effective in reducing patient's body aches. PL 06/15.
[2017-02-18] MEDS ORDERED: PHENOBARBITAL 32.4 MG TABLET PO ONE (11:15)
[2017-02-18] MEDS ORDERED: PHENOBARBITAL 60 MG TABLET PO ONE (11:30)
--- NOTE | 2017-02-18 11:34 | NUR ---
Phenobarbital 60 mg PO given: OT order of Phenobarbital given to the patient per MD due to increased s/s of withdrawal from opiate/BZO and ETOH.
[2017-02-18 12:00] VITALS: BP 115/65
--- NOTE | 2017-02-18 12:34 | NUR ---
Re-assessment: Phenobarbital Patient states that he feels less agitated, and less anxious. Verbalizes "I feel a little better." CIWA 6 from 10. Phenobarbital was effective in reducing patient's s/s of withdrawal.
[2017-02-18] MEDS: BUPRENORPHINE HCL 2 MG TAB.SUBL SL SCH ×2 (14:17→21:00)
[2017-02-18] MEDS ORDERED: DIAZEPAM 10 MG TABLET PO PRN ×2 (15:30)
[2017-02-18 16:00] VITALS: BP 119/59
[2017-02-18] MEDS: IBUPROFEN 600 MG TABLET PO PRN (16:43)
--- NOTE | 2017-02-18 16:43 | NUR ---
Valium 5 mg PO given/Motrin 600 mg PO given: Patient's CIWA 6, patient presented with moderate anxiety, gross tremors and headache. Medicated patient with Valium 5 mg and Motrin 600 mg PO as ordered. Will monitor for effectiveness.
--- NOTE | 2017-02-18 17:43 | NUR ---
Re-assessment: CIWA 4, per patient, PRN Valium and Motrin was effective in reducing headache. Less anxiety, less sweating and less tremors noted.
--- NOTE | 2017-02-18 19:02 | NUR ---
End of Shift Notes: Patient continues to be on 5-day Subutex and 5-day Valium taper as ordered. No adverse reactions noted. Patient is tolerating taper well. VS monitored closely. No significant abnormalities noted. Initial COWS 9/CIWA 6, patient presented with muscle aches, anxiety, agitation, chills, hot flashes, tremors and sweating. Medicated patient with Robaxin 750mg PO at 0812 for pain with help after 1 hour. Valium 5 mg and Motrin gi8ven at 1643 with help. Last COWS 5/CIWA 4. Patient denies S/I or H/I. Noncompliant with Trileptal and Clonidine at 0900, patient states that it makes him "feel too tired." Education provided. OT Phenobarbital 60 mg PO given at 1134 per MD. Will continue to encourage. Requires encouragement to attend group and activities. All needs met and attended. Will continue to monitor closely.
--- NOTE | 2017-02-18 19:12 | NUR ---
Start of shift note Received report from day shift nurse. Pt is a 36 yo male, A+Ox4, presenting to [facility] for Opiate/Benzo/ETOH/Cocaine dependence. Pt has NKA, is on Full code status, and on Regular diet. Pt is on Fall and Seizure precautions. Pt has HX of Anxiety. Pt is on 5 day Subutex and 5 day Valium tapers, tolerated well. No s/s of distress noted at this time. Respirations even and unlabored. Will continue to monitor.
[2017-02-18 20:47] VITALS: BP 139/77
[2017-02-18] MEDS: QUETIAPINE FUMARATE 100 MG TABLET PO PRN (22:47)
[2017-02-18] MEDS: MAGNESIUM HYDROXIDE 30 ML LIQUID UDC PO PRN (22:48)
--- NOTE | 2017-02-18 22:49 | NUR ---
PRN Seroquel Pt c/o inability to sleep and requested for PRN Seroquel. Medication given and tolerated well. Will reassess within 1 HR. Will continue to monitor.
--- NOTE | 2017-02-18 22:50 | NUR ---
PRN Milk of Magnesia Pt c/o constipation and requested for PRN Milk of Magnesia. Medication given and tolerated well. Will reassess within 1 HR. Will continue to monitor.
[2017-02-19 00:20] VITALS: BP 128/82
[2017-02-19] MEDS: DIAZEPAM 5 MG TABLET PO PRN ×2 (02:00→12:24)
[2017-02-19] MEDS: IBUPROFEN 600 MG TABLET PO PRN ×2 (02:00→21:57)
--- NOTE | 2017-02-19 02:03 | NUR ---
PRN Ibuprofen and Valium 5mg Pt c/o headache and anxiety with CIWA: 5. Medications given and tolerated well. Will reassess within 1 HR. Will continue to monitor.
--- NOTE | 2017-02-19 03:01 | NUR ---
PRN Ibuprofen and Valium 5mg Reassessment Medications effective. Pt is resting well in bed with CIWA: 3. No s/s of ASE/distress noted at this time. Respirations even and unlabored. Will continue to monitor.
[2017-02-19 04:20] VITALS: BP 124/76
--- NOTE | 2017-02-19 07:00 | NUR ---
End of shift note Pt is a 36 yo male, A+Ox4, presenting to [facility] for Opiate/Benzo/ETOH/Cocaine dependence. Pt has NKA, is on Full code status, and on Regular diet. Pt is on Fall and Seizure precautions. Pt has HX of Anxiety. Pt is on 5 day Subutex and 5 day Valium tapers, tolerated well. Pt was given PRN Seroquel and Milk of Magnesia @2250 and PRN Ibuprofen and Valium 5mg @0203. Pt slept for a total of 3 HRS. Last COWS: 3 and Last CIWA: 3 @0400. No s/s of distress noted at this time. Respirations even and unlabored. Will endorse to day shift nurse.
--- NOTE | 2017-02-19 07:30 | NUR ---
START OF SHIFT Pt 36 y/o male admitted for benzo, etoh, and opiate withdrawal. Pt received in room awake sitting on chair. Pt alert and oriented to name, place, and time. Perrla. Skin warm and slightly moist to touch. Respirations even and unlabored. Bilateral hand tremors noted. Pt appears anxious this morning. It was reported that pt slept for 3 hours last night. Bed on lowest position with side rails x2 up for safety. Call light within reach. No distress noted at this time.
[2017-02-19 08:00] VITALS: BP 110/61
[2017-02-19] MEDS: DIAZEPAM 5 MG TABLET PO SCH ×3 (08:48→20:38)
[2017-02-19] MEDS: THIAMINE HCL 100 MG TABLET PO SCH (08:48)
[2017-02-19] MEDS: BUPRENORPHINE HCL 2 MG TAB.SUBL SL SCH ×3 (08:48→20:38)
[2017-02-19] MEDS: FOLIC ACID 1 MG TABLET PO SCH (08:48)
[2017-02-19] MEDS: MULTIVITAMINS,THERAPEUTIC TABLET PO SCH (08:49)
[2017-02-19] MEDS: CLONIDINE HCL 0.1 MG TABLET PO SCH ×3 (08:49→20:38)
[2017-02-19] MEDS: GABAPENTIN 300 MG CAPSULE PO SCH ×3 (08:49→20:37)
[2017-02-19] MEDS ORDERED: DIAZEPAM 5 MG TABLET PO SCH (09:00)
[2017-02-19] MEDS ORDERED: BUPRENORPHINE HCL 2 MG TAB.SUBL SL SCH (09:00)
[2017-02-19 12:00] VITALS: BP 118/88
[2017-02-19] MEDS: HYDROXYZINE PAMOATE 25 MG CAPSULE PO PRN (12:24)
--- NOTE | 2017-02-19 12:26 | NUR ---
PRN Pt with ciwa=7. Valium 5 mg po prn per MD order given and tolerated well.
--- NOTE | 2017-02-19 12:26 | NUR ---
PRN Pt states feels anxious. Vistaril po prn per MD order given and tolerated well.
--- NOTE | 2017-02-19 13:26 | NUR ---
SORIN MOFFETT Pt observed in room sitting on chair.
--- NOTE | 2017-02-19 13:26 | NUR ---
PRN EVAL pt with ciwa=4.
[2017-02-19] MEDS: METHOCARBAMOL 750 MG TABLET PO PRN (15:49)
[2017-02-19] MEDS: CLONIDINE HCL 0.1 MG TABLET PO PRN (15:49)
--- NOTE | 2017-02-19 15:51 | NUR ---
PRN Pt states feels anxious. Catapres po prn per MD order given and tolerated well.
--- NOTE | 2017-02-19 15:51 | NUR ---
PRN Pt with c/o body aches 08/15. Robaxin po prn per MD order given and tolerated well.
[2017-02-19 16:00] VITALS: BP 120/63
--- NOTE | 2017-02-19 16:51 | NUR ---
SORIN MOFFETT Pt observed walking around the unit.
--- NOTE | 2017-02-19 16:51 | NUR ---
PRN EVAL Pt states body aches 06/15.
--- NOTE | 2017-02-19 18:47 | NUR ---
END OF SHIFT Pt 36 y/o male admitted for benzo, etoh, opiate withdrawal. Pt alert and oriented to name, place, and time. Perrla. Skin warm and slightly moist to touch. Respirations even and unlabored. Bilateral hand tremors noted slightly. Pt with periods of agitation this morning. Pt hard to redirect at time. Pt did not attend group activity. Pt was seen by MD today. Pt medication compliant and tolerated well. No ASE noted. Bed on lowest position with side rails x2 up for safety. Call light within reach. No distress noted at this time.
[2017-02-19 20:00] VITALS: BP 110/70
--- NOTE | 2017-02-19 20:00 | NUR ---
START OF SHIFT NOTE RECEIVED REPORT FROM DAY SHIFT NURSE. PATIENT IS A 36 YEAR OLD MALE ADMITTED FOR BENZO/ETOH/ OPIATE DEPENDENCE. PATIENT IS ON 5 DAY VALIUM AND 5 DAY SUBUTEX TAPER. PATIENT REPORTS PMH OF ANXIETY. SKIN INTACT. PATIENT WAS ANXIOUS AND AGITATED DURING THE DAY. PRN CATAPRES , ROBAXIN , VISTARIL AND VALIUM GIVEN. LAST COWS 8 AND CIWA 4. RECEIVED PATIENT ALERT AND ORIENTED X 4. RESPIRATION EVEN AND UNLABORED. PATIENT REPORTS ANXIETY, NOTED IRRITABLE, NO N/V, C/O ABDOMINAL CRAMPING, AGITATED , DENIES ANY PAIN AT THIS TIME. RELAXATION TECHNIQUE PROVIDED. ON FALL/SEIZURE PRECAUTION. SAFETY MEASURES IN PLACE. CALL LIGHT IN REACH. WILL CONTINUE TO MONITOR
--- NOTE | 2017-02-19 20:59 | NUR ---
PRN BENTYL AND MIRALAX ADMINISTRATION PATIENT C/O ABDOMINAL CRAMPING AND REQUESTS FOR LAXATIVE. ENCOURAGE FLUIDS. WILL MONITOR FOR EFFECTIVENESS
[2017-02-19] MEDS: QUETIAPINE FUMARATE 100 MG TABLET PO PRN (21:55)
--- NOTE | 2017-02-19 21:55 | NUR ---
PRN MOTRIN AND SEROQUEL ADMINISTRATION PATIENT C/O GENERALIZED BODY ACHES 5/10 AND REQUESTS FOR SLEEP AID. WILL MONITOR FOR EFFECTIVENESS
--- NOTE | 2017-02-19 21:59 | NUR ---
PRN BENTYL RE-ASSESSMENT PATIENT STATES BENTYL IS EFFECTIVE. ABDOMINAL CRAMPING IS LESS. WILL CONTINUE TO MONITOR
--- NOTE | 2017-02-19 22:55 | NUR ---
PRN MOTRIN RE-ASSESSMENT PATIENT STATES MOTRIN HELPFUL AND EFFECTIVE. PAIN LEVEL 2/10. WILL CONTINUE TO MONITOR
--- NOTE | 2017-02-20 | NUR ---
CIWA/COWS DEFERRED/SEROQUEL RE-ASSESSMENT PATIENT SLEEPING. CIWA AND COWS DEFERRED. VS REFUSED. RESPIRATION EVEN AND UNLABORED. SAFETY MEASURES IN PLACE. CALL LIGHT IN REACH. WILL CONTINUE TO MONITOR
--- NOTE | 2017-02-20 04:00 | NUR ---
COWS/CIWA DEFERRED PATIENT SLEEPING. CIWA AND COWS DEFERRED. VS REFUSED. RESPIRATION EVEN AND UNLABORED. SAFETY MEASURES IN PLACE. CALL LIGHT IN REACH. WILL CONTINUE TO MONITOR
--- NOTE | 2017-02-20 07:13 | NUR ---
END OF SHIFT NOTE PATIENT CONTINUE ON VALIUM AND SUBUTEX TAPER, TOLERATED WELL AND NO ADVERSE REACTION. PATIENT ANXIOUS, IRRITABLE AND AGITATED , BEGINNING OF SHIFT. RELAXATION TECHNIQUE PROVIDED . PATIENT WAS GIVEN PRN SEROQUEL, MOTRIN, MIRALAX AND BENTYL . ON FALL/SEIZURE PRECAUTION. SAFETY MEASURES IN PLACE. CALL LIGHT IN REACH. WILL CONTINUE TO MONITOR. SLEPT 5 HOURS. FLUID INTAKE 850 ML. VOIDED X 2. NO BM. LAST COWS 6 AND CIWA 5. ENDORSED TO NEXT SHIFT TO RE-ASSESS MIRALAX.
--- NOTE | 2017-02-20 07:30 | NUR ---
START OF SHIFT Pt 36 y/o male admitted for benzo, etoh, and opiate withdrawal. Pt received in room awake walking around in the hallway. Pt alert and oriented to name, place, and time. Perrla. Skin warm and slightly moist to touch. Respirations even and unlabored. Bilateral hand tremors noted. Pt appears anxious this morning. It was reported that pt slept for 5 hours last night. Bed on lowest position with side rails x2 up for safety. Call light within reach. No distress noted at this time.
[2017-02-20 08:00] VITALS: BP 103/62
[2017-02-20] MEDS: DIAZEPAM 5 MG TABLET PO SCH ×2 (08:48→21:23)
[2017-02-20] MEDS: CLONIDINE HCL 0.1 MG TABLET PO SCH ×3 (08:48→21:23)
[2017-02-20] MEDS: MULTIVITAMINS,THERAPEUTIC TABLET PO SCH (08:48)
[2017-02-20] MEDS: FOLIC ACID 1 MG TABLET PO SCH (08:48)
[2017-02-20] MEDS: THIAMINE HCL 100 MG TABLET PO SCH (08:48)
[2017-02-20] MEDS: BUPRENORPHINE HCL 2 MG TAB.SUBL SL SCH ×2 (08:48→21:22)
[2017-02-20] MEDS: GABAPENTIN 300 MG CAPSULE PO SCH ×3 (08:49→21:27)
[2017-02-20 12:00] VITALS: BP 129/50
[2017-02-20] MEDS: METHOCARBAMOL 750 MG TABLET PO PRN (13:09)
[2017-02-20] MEDS: CLONIDINE HCL 0.1 MG TABLET PO PRN (13:09)
[2017-02-20] MEDS: HYDROXYZINE PAMOATE 25 MG CAPSULE PO PRN ×2 (13:09→21:23)
--- NOTE | 2017-02-20 13:11 | NUR ---
PRN Pt states feels anxious. Catapres po prn per MD order given and tolerated well.
--- NOTE | 2017-02-20 13:12 | NUR ---
PRN Pt states feels anxious still. Vistaril po prn per MD order given and tolerated well.
--- NOTE | 2017-02-20 13:13 | NUR ---
PRN Pt states has body aches 6/10. Robaxin po prn per MD order given and tolerated well.
--- NOTE | 2017-02-20 14:11 | NUR ---
SORIN MOFFETT Pt observed in recreational sitting playing video games.
--- NOTE | 2017-02-20 14:12 | NUR ---
SORIN MOFFETT Pt observed sitting in the recreational room.
--- NOTE | 2017-02-20 14:13 | NUR ---
PRN EVAL Pt states body aches 05/15.
--- NOTE | 2017-02-20 14:59 | NUR ---
CATAPRES HELD Catapres prn given at 1311, so scheduled catapres due at 1500 was held.
[2017-02-20 16:00] VITALS: BP 132/61
[2017-02-20] MEDS ORDERED: CLONIDINE HCL 0.1 MG TABLET PO PRN (16:15)
[2017-02-20] MEDS ORDERED: BUPRENORPHINE HCL 2 MG TAB.SUBL SL ONE (16:15)
[2017-02-20] MEDS ORDERED: CLONIDINE HCL 0.2 MG TABLET PO PRN (16:15)
[2017-02-20] MEDS: IBUPROFEN 600 MG TABLET PO PRN (16:43)
--- NOTE | 2017-02-20 16:47 | NUR ---
ONE TIME Pt was seen by MD with new order for subutex 2mg sL x1 dose, noted and carried out. Pt with cows=8
--- NOTE | 2017-02-20 17:47 | NUR ---
ONE TIME EVAL Pt with cows=4
--- NOTE | 2017-02-20 18:39 | NUR ---
END OF SHIFT Pt 36 y/o male admitted for benzo, etoh, opiate withdrawal. Pt alert and oriented to name, place, and time. Perrla. Skin warm and slightly moist to touch. Respirations even and unlabored. Bilateral hand tremors noted slightly. Pt with periods of anxiety this morning. Pt attended group activity. Pt was seen by MD today. Pt medication compliant and tolerated well. No ASE noted. Bed on lowest position with side rails x2 up for safety. Call light within reach. No distress noted at this time.
--- NOTE | 2017-02-20 19:15 | NUR ---
START OF SHIF NOTE : Pt is a 36 yo male, admitted to [facility] for Opiate/Benzo/ETOH/Cocaine dependence. Pt has NKA, is on Full code status, and on Regular diet. Pt is on Fall and Seizure precautions. Pt has HX of Anxiety. Pt completed his 5 day Subutex and 5 day Valium tapers, is on daily doses of Valium and Subutex ordered by MD.. No s/s of distress noted at this time. Safety measures in place : bed on lowest position with side rails x2 up for safety, call light within reach. Will continue to monitor closely and offer help.
[2017-02-20 20:00] VITALS: BP 125/50
--- NOTE | 2017-02-20 21:00 | NUR ---
PRN COLACE, MoM, SEROQUEL, VISTARIL Pt. complains sleeplessness , constipation, increased level of anxiety. PRN COLACE, MoM, SEROQUEL, VISTARIL given as ordered. Safety measures in place : bed on lowest position with side rails x2 up for safety, call light within reach. Will continue to monitor closely and offer help.
[2017-02-20] MEDS: MAGNESIUM HYDROXIDE 30 ML LIQUID UDC PO PRN (21:23)
[2017-02-20] MEDS: QUETIAPINE FUMARATE 100 MG TABLET PO PRN (21:23)
[2017-02-20] MEDS: DOCUSATE SODIUM 250 MG CAPSULE PO PRN (21:23)
--- NOTE | 2017-02-20 22:00 | NUR ---
RE-ASSESSMENT ALEM, MoM, SEROCAMI, MADELAINE Pt. is sleeping, RR=16, unlabored and even. Safety measures in place : bed on lowest position with side rails x2 up for safety, call light within reach. Will continue to monitor closely and offer help.
--- NOTE | 2017-02-21 06:47 | NUR ---
END OF SHIFT NOTE : Pt is a 36 yo male, admitted to [facility] for Opiate/Benzo/ETOH/Cocaine dependence. Pt has NKA, is on Full code status, and on Regular diet. Pt is on Fall and Seizure precautions. Pt has HX of Anxiety. Pt completed his 5 day Subutex and 5 day Valium tapers, is on daily doses of Valium and Subutex ordered by Pt remains compliant with the treatment plan. PRN COLACE, MOM, SEROQUEL, VISTARIL given during my shift. V/S remain WNL. RR=16, even and unlabored, lungs clear upon auscultation, abdomen soft and non- distended. Pt denies nausea, vomiting and diarrhea. CIWA and COWS taken when pt. was alert during the night, LAST CIWA=3 ,COWS=3 at 0400 , [id number] ml, voided x 3, slept 7 hours. Safety measures in place : bed on lowest position with side rails x2 up for safety, call light within reach. Will continue to monitor closely and offer help.
--- NOTE | 2017-02-21 07:16 | NUR ---
START OF SHIFT Report received pt is a 36 yo male, admitted to [facility] for Opiate/Benzo/ETOH/Cocaine dependence. Pt denies any food or drug allergies, is on Full code status, and on a Regular diet pt continues on Fall and Seizure precautions. Pt has HX of Anxiety. Pt is on a 5 day Subutex and 5 day Valium tapers. Pts last CIWA 3 COWS 3 Encouraged pt to drink more fluids to help facilitate with detox process. Pt slept a total of 3 hours last night. All needs met all safety measures in place, call light within reach bed in lowest locked position, will continue to monitor and provide care.
[2017-02-21 08:00] VITALS: BP 135/85
[2017-02-21] MEDS: MULTIVITAMINS,THERAPEUTIC TABLET PO SCH (08:56)
[2017-02-21] MEDS: GABAPENTIN 300 MG CAPSULE PO SCH ×3 (08:56→21:20)
[2017-02-21] MEDS: FOLIC ACID 1 MG TABLET PO SCH (08:56)
[2017-02-21] MEDS: CLONIDINE HCL 0.1 MG TABLET PO SCH ×3 (08:57→21:20)
[2017-02-21] MEDS: THIAMINE HCL 100 MG TABLET PO SCH (08:57)
[2017-02-21] MEDS ORDERED: DIAZEPAM 5 MG TABLET PO SCH (09:00)
[2017-02-21] MEDS ORDERED: BUPRENORPHINE HCL 2 MG TAB.SUBL SL SCH (09:00)
[2017-02-21 12:00] VITALS: BP 130/73
[2017-02-21] MEDS: HYDROXYZINE PAMOATE 25 MG CAPSULE PO PRN ×2 (14:24→21:20)
[2017-02-21 16:00] VITALS: BP 123/63
[2017-02-21] MEDS ORDERED: METH-406 PO (18:08)
[2017-02-21] MEDS ORDERED: HYDR-3895 PO (18:08)
[2017-02-21] MEDS ORDERED: QUET100T PO (18:08)
[2017-02-21] MEDS ORDERED: GABA-534 PO (18:08)
[2017-02-21] MEDS ORDERED: IBUP-1955 PO (18:08)
[2017-02-21] MEDS ORDERED: CLON0.1T14 PO (18:08)
[2017-02-21] MEDS ORDERED: DICY20TA28 PO (18:08)
[2017-02-21] MEDS ORDERED: QUET25TA PO (18:08)
--- NOTE | 2017-02-21 19:10 | NUR ---
End Of Shift Report given, pt is a 36 yo male, admitted to [facility] for Opiate/Benzo/ETOH/Cocaine dependence. Pt denies any food or drug allergies, is on Full code status, and on a Regular diet pt continues on Fall and Seizure precautions. Pt has HX of Anxiety. Pt is on a 5 day Subutex and 5 day Valium tapers. VS monitored closely q 4 hours. Withdrawal symptoms were closely monitored. Initial COWS 3 CIWA 3. Patient encouraged adequate PO fluid intake as tolerated. Patient presented with tremors and anxiety during the day. Last COWS 3 CIWA 3. Per patient, Subutex and valium have been helping him with his withdrawal symptoms. Pt ate all of his meals. Pt received PRN Vistaril for anxiety, per pt medication was effective. Patient encouraged to attend group therapies/sessions to learn new coping skills to recent relapse, patient denies SI/HI. Participated in group and therapy sessions. All needs met and attended.
--- NOTE | 2017-02-21 19:15 | NUR ---
START OF SHIFT NOTE : Pt is a 36 yo male, [facility]zo/ETOH/Cocaine dependence. Pt has NKA, is on Full code status, and on Regular diet. Pt is on Fall and Seizure precautions. Pt has HX of Anxiety. Pt completed his 5 day Subutex and 5 day Valium tapers, is on daily doses of Valium and Subutex ordered by . Pt5. Will be D/C tomorrow. He complains of increased level of anxiety and sleeplessness.Safety measures in place : bed on lowest position with side rails x2 up for safety, call light within reach. Will continue to monitor closely and offer help.
[2017-02-21 20:00] VITALS: BP 115/80
--- NOTE | 2017-02-21 21:00 | NUR ---
PRN [id number]-VISTARIL Pt. complains sleeplessness , constipation, increased level of anxiety. PRN COLACE, MoM, SEROQUEL, VISTARIL given as ordered. Safety measures in place : bed on lowest position with side rails x2 up for safety, call light within reach. Will continue to monitor closely and offer help.
[2017-02-21] MEDS: QUETIAPINE FUMARATE 100 MG TABLET PO PRN (21:20)
[2017-02-21] MEDS: DOCUSATE SODIUM 250 MG CAPSULE PO PRN (21:20)
[2017-02-21] MEDS: MAGNESIUM HYDROXIDE 30 ML LIQUID UDC PO PRN (21:20)
--- NOTE | 2017-02-22 06:35 | NUR ---
END OF SHIFT NOTE : Pt is a 36 yo male, admitted to [facility] for Opiate/Benzo/ETOH/Cocaine dependence. Pt has NKA, is on Full code status, and on Regular diet. Pt is on Fall and Seizure precautions. Pt has HX of Anxiety. Pt completed his 5 day Subutex and 5 day Valium tapers, is on daily doses of Valium and Subutex ordered by Pt remains compliant with the treatment plan. PRN COLACE, MOM, SEROQUEL, VISTARIL given during my shift. V/S remain WNL. RR=16, even and unlabored, lungs clear upon auscultation, abdomen soft and non- distended. Pt. will be D/C today. Pt denies nausea, vomiting and diarrhea. CIWA and COWS taken when pt. was alert during the night, LAST CIWA=1 ,COWS=1 at 0400 , [id number] ml, voided x4, slept 9 hours. Safety measures in place : bed on lowest position with side rails x2 up for safety, call light within reach. Will continue to monitor closely and offer help
--- NOTE | 2017-02-22 07:30 | NUR ---
start of shift note: received pt from shift supervisor rn nurse,pt is in stable condition no s/s of pain or discomfort, pt is admitted to [facility] for benzo/Etoh/opiate/ withdrawal/dependence. pt's last ciwa 3 and cows 3. pt is set to discharge today. will assist pt in discharging and will continue to monitor pt for any changes.
[2017-02-22] MEDS: GABAPENTIN 300 MG CAPSULE PO SCH (09:04)
[2017-02-22] MEDS: FOLIC ACID 1 MG TABLET PO SCH (09:04)
[2017-02-22] MEDS: THIAMINE HCL 100 MG TABLET PO SCH (09:04)
[2017-02-22 09:05] VITALS: BP 106/65
[2017-02-22] MEDS: CLONIDINE HCL 0.1 MG TABLET PO SCH (09:05)
[2017-02-22] MEDS: MULTIVITAMINS,THERAPEUTIC TABLET PO SCH (09:05)
--- NOTE | 2017-02-22 09:30 | NUR ---
discharge note: pt left the unit in stable condition no s/s of pain or discomfort. pt teaching administered and pt verbalized understanding. all personal belongings were returned. pt will be transferred to [facility].
== END 2017-02-22 09:26 | disposition other institution (70) | DRG 895 ==
LOC: SRC 14:45
PROVIDERS: ADMIT Internal Medicine; ATTEND Internal Medicine
PROC: HZ2ZZZZ Detoxification Services for Substance Abuse Treatment (ICD-10-PCS; principal; 2017-02-14)
PROC: HZ31ZZZ Individual Counseling for Substance Abuse Treatment, Behavioral (ICD-10-PCS; 2017-02-17)
PROC: HZ41ZZZ Group Counseling for Substance Abuse Treatment, Behavioral (ICD-10-PCS; 2017-02-18)
DX: F11.23 Opioid dependence with withdrawal (principal); F10.230 Alcohol dependence with withdrawal, uncomplicated; F13.239 Sedative, hypnotic or anxiolytic dependence with withdrawal, unspecified; Y90.0 Blood alcohol level of less than 20 mg/100 ml; Z91.89 Other specified personal risk factors, not elsewhere classified; G47.00 Insomnia, unspecified; F17.210 Nicotine dependence, cigarettes, uncomplicated; F41.0 Panic disorder [episodic paroxysmal anxiety]; F14.10 Cocaine abuse, uncomplicated; F12.90 Cannabis use, unspecified, uncomplicated; Z20.5 Contact with and (suspected) exposure to viral hepatitis
CPT/HCPCS: 36415; 70030-TC; 80307; 80346; 80349; 80353; 83735; 84443; 85025; 86580; 86592; 86705; 86803; 87340; 87806; A4663; G0480; J8499; Q0162

== ENCOUNTER 2017-07-26 17:03 | Inpatient (IN) | payer BC, OTHER ==
[~2017-07-26] VITALS: Ht 185.4 cm; Wt 90.7 kg
[~2017-07-26 17:03] MED LIST: CLON0.1T14 PO; DICY20TA28 PO; GABA-534 PO; HYDR-3895 PO; IBUP-1955 PO; METH-406 PO; QUET100T PO; QUET25TA PO
--- NOTE | 2017-07-26 17:52 | NUR ---
Intake Assessment; Patient is a 37 year old male presented to [facility] to detoxify from Benzodiazepine and Opiates. Patient showing signs and symptoms of withdrawals manifested by diaphoresis, anxious and agitated, complaining of teary eyes, nausea, muscle aches, headache, goosebump, auditory sensitivity and visual sensitivity. Patient denies any allergies. Patient reported history of seizures related to withdrawals. Educated patient regarding unit protocols and policies, patient verbalized understanding. Will continue with further assessment when patient is up on the unit. Patient was seen and evaluated by .
[2017-07-26 18:06] LABS: *AMPHETAMINE, URINE NEGATIVE (NEGATIVE); *BARBITURATE, URINE POSITIVE (NEGATIVE); *CANNABINOID, URINE NEGATIVE (NEGATIVE); *COCCAINE, URINE POSITIVE (NEGATIVE); *OPIATE, URINE NEGATIVE (NEGATIVE); *PHENCYCLIDINE SCREEN,URINE NEGATIVE (NEGATIVE)
[2017-07-26] MEDS ORDERED: ACETAMINOPHEN 325 MG TABLET PO PRN (18:15)
[2017-07-26] MEDS ORDERED: METHOCARBAMOL 750 MG TABLET PO PRN (18:15)
[2017-07-26] MEDS ORDERED: MIRALAX 17 GM POWD.PACK PO PRN (18:15)
[2017-07-26] MEDS ORDERED: MAG HYDROX/AL HYDROX/SIMETH 30 ML LIQUID UDC PO PRN (18:15)
[2017-07-26] MEDS ORDERED: ONDANSETRON ODT 4 MG TAB.RAPDIS SL PRN (18:15)
[2017-07-26] MEDS ORDERED: diphenhydrAMINE 50 MG CAPSULE PO PRN (18:15)
[2017-07-26] MEDS ORDERED: DICYCLOMINE HCL 20 MG TABLET PO PRN (18:15)
[2017-07-26] MEDS ORDERED: DIAZEPAM 5 MG TABLET PO PRN (18:15)
[2017-07-26] MEDS ORDERED: LORAZEPAM 2 MG/1 ML VIAL IM PRN (18:15)
[2017-07-26] MEDS ORDERED: MAGNESIUM HYDROXIDE 30 ML LIQUID UDC PO PRN (18:15)
[2017-07-26] MEDS ORDERED: LOPERAMIDE HCL 2 MG CAPSULE PO PRN ×2 (18:15)
[2017-07-26] MEDS ORDERED: GABAPENTIN 400 MG CAPSULE PO ONE (18:15)
[2017-07-26] MEDS ORDERED: ONDANSETRON 4 MG/2 ML VIAL IM PRN (18:15)
[2017-07-26] MEDS ORDERED: CLONIDINE HCL 0.1 MG TABLET PO PRN (18:15)
[2017-07-26] MEDS ORDERED: PHENOBARBITAL 60 MG TABLET PO SCH ×2 (18:30→22:00)
[2017-07-26] MEDS: BUPRENORPHINE HCL 2 MG TAB.SUBL SL PRN (18:36)
--- NOTE | 2017-07-26 18:36 | NUR ---
PRN medications; Patient's current COWS score is 20 manifested by muscle aches, high anxiety, diaphoresis, nausea , agitations, headache. PRN Subutex 4mg SL given for COWS score of 20 and PRN Motrin 600mg PO PRN given for headache. Will continue to monitor patient for effectiveness of medication.
[2017-07-26] MEDS: IBUPROFEN 600 MG TABLET PO PRN (18:44)
--- NOTE | 2017-07-26 19:02 | NUR ---
Admission note; Patient is a 37 year old male presented to [facility] to detoxify from Multiple substances. Patient showing signs and symptoms of withdrawals manifested by diaphoresis, anxious and agitated, complaining of teary eyes, nausea, muscle aches, headache, goosebump, auditory sensitivity and visual sensitivity. Patient denies any allergies. Patient reported history of seizures related to withdrawals. Educated patient regarding unit protocols and policies, patient verbalized understanding. Patient was seen and evaluated by MD. Patient's admitting vital signs are as follows; BP 149/70, HR 98, Temperature 98.2, Respirations 18 , Spo2 98%, complaining of headache. Patient weight is 200lbs and height of 6'1 . Patient did not bring any home medications but reported that he is currently taking Neurontin 800mg TID and Seroquel 100mg PO HS PRN. Patient was recently a patient at [facility] from February 14-2016 and was transferred to [place] treatment. Patient remained sober but relapsed after 2 weeks of being transferred to [place]. Discussed substance use history. Patient currently has been using the following substances for about 5.5 months. Patient reported taking Xanax 14mg-20mg daily last taken 07/25/17 in the morning. Patient also reported taking Klonopin 6mg PO daily last taken 07/25/17 in the AM, patient was also taking Clonazolam 180mg daily last taken 07/25/17 in the AM. Patient also reported taking Suboxone 16mg SL last taking 18 at 1800. Patient also reported using Heroin and Cocaine on an intermittent basis only with unspecified amount. Patient stated that the cause of his recent relapse is due to high anxiety and inability to cope with stress. Patient is seeking help and he is motivated to achieve sobriety again. Patient stated "I want to fix my life and be sober again but i would need medical help". Encouraged patient to verbalize feelings. Discussed medical and psychiatric history. Patient reported history of severe anxiety and insomnia. Patient's current COWS score is 20 and CIWA score of 21. Patient does not have PCP or psychiatrist. Patient is admitted in room 310 under the care of Dr. Gay. Skin check done without any significant findings. All safety measures secured. Fall and seizure precautions observed. Endorsed to night nurse.
--- NOTE | 2017-07-26 19:24 | NUR ---
Re-assessment; Patient's COWS score improved from 20 to 17 , patient denies headache at this time. PRN medications noted to be effective.
--- NOTE | 2017-07-26 19:26 | NUR ---
End of shift note; Patient is a 37 year old male presented to [facility] to detoxify from Multiple substances. Patient showing signs and symptoms of withdrawals manifested by diaphoresis, anxious and agitated, complaining of teary eyes, nausea, muscle aches, headache, goosebump, auditory sensitivity and visual sensitivity. Patient denies any allergies. Patient reported history of seizures related to withdrawals. Educated patient regarding unit protocols and policies, patient verbalized understanding. Patient was seen and evaluated by MD. Patient's current COWS score is 17 and CIWA score of 16. Patient does not have PCP or psychiatrist. Patient is admitted in room 310 under the care of Dr. Gay. Skin check done without any significant findings. All safety measures secured. Fall and seizure precautions observed. Endorsed to night nurse.
--- NOTE | 2017-07-26 19:30 | NUR ---
Start of Shift Pt is a 37 y/o male admitted today, 07/26/17, for medically managed withdrawal/detox from a variety of Benzodiazapines (Xanax, Klonopin, Clonazolam), Suboxone, Heroin, and Cocaine. Pt is on Seizure and fall precautions for safety. Pt is met in hallway with continuous improvement director, refusing blood draw until Valium administered. Pt appears anxious, hyperactive. When Valium made available pt is found downstairs in smoking area. On pt return CINM 24, Valium 20mg PO given. Lab called for blood draw, pt attempts to postpone to following day, convinced to attempt in 1 hour. Pt appears manic, with fast speech, labile affect/mood, constant movement/shifting/talking. Will continue to monitor patient for duration of shift until morning endorsement, promptly attending to all pt needs.
[2017-07-26] MEDS: DIAZEPAM 10 MG TABLET PO PRN (19:55)
--- NOTE | 2017-07-26 19:55 | NUR ---
PRN Med Valium 20mg PO given to pt for CIWA 24. Pt agitated, anxious, labile affect/mood, sweat obvious on brow. Will continue to monitor and promptly attend to all pt needs.
[2017-07-26 20:00] VITALS: BP 113/77
--- NOTE | 2017-07-26 20:55 | NUR ---
PRN Reassessment Valium 20mg PO given to pt 1 hour prior for CIWA 24. At present, patient still manic/animated, hyperactive. Pt reports improvement, Movement and affect appear improved also. Med effective. Will continue to monitor and promptly attend to all pt needs.
[2017-07-26] MEDS ORDERED: QUETIAPINE FUMARATE 100 MG TABLET PO SCH (21:00)
[2017-07-26] MEDS: GABAPENTIN 400 MG CAPSULE PO SCH (21:10)
[2017-07-26 22:20] LABS: BASOPHILS # (AUTO) 0.1 K/uL (0.0-8.0); BASOPHILS % (AUTO) 0.9 % (0.0-2.0); EOSINOPHILS # (AUTO) 0.2 K/uL (0.0-0.7); EOSINOPHILS % (AUTO) 2.4 % (0.0-7.0); HEMATOCRIT 40.6 % (36.7-47.1); HEMOGLOBIN 13.1 g/dL (12.5-16.3); LYMPHOCYTES # (AUTO) 2.5 K/uL (20.0-40.0); MEAN CORPUSCULAR HGB CONC 32 g/dL (32.5-36.3); MEAN CORPUSCULAR VOLUME 64.9 fL (73.0-96.2); MONOCYTES # (AUTO) 0.5 K/uL (2.0-10.0); MONOCYTES % (AUTO) 7.1 % (0.0-11.0); NEUTROPHILS # (AUTO) 3.8 K/uL (1.8-8.9); NEUTROPHILS % (AUTO) 54.6 % (38.5-71.5); PLATELET COUNT (AUTO) 287 K/uL (152-348); RED BLOOD CELL COUNT(AUTO) 6.25 MIL/uL (4.06-5.63)
[2017-07-26 22:31] LABS: ETHANOL < 3 MG/DL (0-0)
[2017-07-26 22:37] LABS: ALANINE AMINOTRANSFERASE 58 U/L (16-63); ALKALINE PHOSPHATASE 54 U/L (50-136); ASPARTATE AMINOTRANSFERASE 18 U/L (15-37); BILIRUBIN,TOTAL 0.6 mg/dL (0.2-1.0); CARBON DIOXIDE 30 mmol/L (21-32); CHLORIDE 99 mmol/L (98-107); CREATININE 1.3 mg/dL (0.6-1.3); GLUCOSE 103 mg/dL (74-106); MAGNESIUM 1.8 mg/dL (1.8-2.4); POTASSIUM 4.1 mmol/L (3.5-5.1); TOTAL PROTEIN, SERUM 8.2 g/dL (6.4-8.2); UREA NITROGEN, BLOOD 21 mg/dL (7-18)
[2017-07-27] VITALS (7 sets, daily range): BP systolic 115–128; BP diastolic 70–103
[2017-07-27] MEDS: BUPRENORPHINE HCL 2 MG TAB.SUBL SL PRN ×2 (00:13→06:31)
--- NOTE | 2017-07-27 00:13 | NUR ---
PRN Meds Valium 20mg PO for CIWA 13 and Subutex 4mg SL for COWS 18 administered. Pt agitated, increased anxiety, sweaty brow, pacing in room. sleep manager made aware of pt condition. Will continue to monitor closely, reassessing in 1 hour, and promptly attend to all needs.
[2017-07-27] MEDS: DIAZEPAM 10 MG TABLET PO PRN ×6 (00:14→23:25)
[2017-07-27] MEDS: IBUPROFEN 600 MG TABLET PO PRN ×3 (00:39→17:57)
--- NOTE | 2017-07-27 00:39 | NUR ---
PRN Meds Motrin 600mg PO given for back pain/myalgias 5/10 and Benedryl 50mg PO for insomnia. Will continue to monitor, reassessing in 1 hour, and promptly attending to all pt needs.
--- NOTE | 2017-07-27 01:13 | NUR ---
PRN Reassessment Valium 20mg PO for CIWA 13 and Subutex 4mg SL for COWS 18 administered 1 hour prior. At present pt sitting quietly in room eating, able to more calmly converse. Meds effective.
--- NOTE | 2017-07-27 01:39 | NUR ---
PRN Reassessment Motrin 600mg PO and Benedryl 50mg PO administered 1 hour prior for back pain/myalgia 510 and insomnia. At present pt on bed sleeping. Meds effective.
--- NOTE | 2017-07-27 04:00 | NUR ---
VS's COWS/CIWA Deferred 0400 VS's, COWS/CIWA deferred r/t pt sleeping/refused. RR 16, even and nonlabored. Will continue to monitor pt, promptly attending to all needs.
--- NOTE | 2017-07-27 06:37 | NUR ---
PRN Meds Valium 20mg PO given for CIWA of 26, Subutex 4mg SL given for COWS of 22, Motrin 600mg PO given for H/A 8/10 pain. Will continue to monitor patient until giving endorsement, reassessing in 1 hour, promptly attending to all pt needs
--- NOTE | 2017-07-27 06:57 | NUR ---
End of Shift Pt is a 37 y/o male admitted, 07/26/17, for medically managed withdrawal/detox from a variety of Benzodiazapines (Xanax, Klonopin, Clonazolam), Suboxone, Heroin, and Cocaine. Pt is on Seizure and fall precautions for safety. Pt's behavior somewhat manic, racing thoughts, poor boundaries but able to be redirected. Later in shift speech slurred/behavior labile, pt appears/behaves intoxicated. PRN's for shift include: Valium 20mg PO for CIWA 24 at 19:55, Valium 20mg PO for CIWA 18 at 00:14, Subutex 4mg SL at 00:14 for COWS 13, Subutex 4mg SL for COWS of 22 and Valium 20mg PO for CIWA of 26 at 06:29. Motrin 600mg PO for back pain/myalgias 10 and Benedryl 50mg PO for insomnia at 00:39, and Motrin 600mg PO again at 0637 for H/A 10/15. Pt slept for 3 hours, with 973 input, 1 voids and 1 BM's. Will continue to monitor patient for duration of shift until morning endorsement, promptly attending to all pt needs.
--- NOTE | 2017-07-27 07:30 | NUR ---
Start of Shift Occupational Health And Safety Adviser received report on 37 year old male admitted to [facility] on 07/26/17 for medical management of Benzodiazepine, Opiate and Cocaine withdrawals. Pt endorses NKA, full code and regular diet. Pt has a PMH of Hepatitis C and a PPH of anxiety and insomnia. Skin in t6act with no known seizure history. Pt will be started a Subutex and Phenobarbital taper. Pt received 3 doses of Valium(withdrawals) and 3 doses of Phenobarbital(withdrawals) on the NOC with last COWS 22 and CIWA 26, recorded at 0600, per NOC report. Occupational Health And Safety Adviser encounters pt in his room, Alert and oriented to name and date and location, some disorientation to situation. Pt is erratic, impulsve and entitled in behavior. Pt has an angry affect with a congruent mood. Pt is demanding and loud with his demands. Pt threats to AMA if his needs are not met immediately. Pt is focused on medication and is demanding to receive his medication prior to scheduled administration. Bed in low position with wheels locked and side rails up x2. Will continue to monitor, support and encourage according to plan of care.
--- NOTE | 2017-07-27 07:37 | NUR ---
PRN Re-Assessment Pt is sweating, irritable, anxious, and restless. No apparent effect on pt's symptoms. Will continue to monitor, support and encourage according to plan of care
[2017-07-27] MEDS: GABAPENTIN 400 MG CAPSULE PO SCH ×4 (08:02→23:23)
[2017-07-27] MEDS: BUPRENORPHINE HCL 2 MG TAB.SUBL SL SCH ×4 (08:02→23:22)
--- NOTE | 2017-07-27 08:03 | NUR ---
PRN Valium Pt scored 29 on CIWA scale and was administered medication to order with pt tolerating well. Pt is irritable, anxious, restless and entitled. Will continue to monitor, support and encourage according to plan of care
[2017-07-27] MEDS ORDERED: PHENOBARBITAL 60 MG TABLET PO SCH (09:00)
[2017-07-27] MEDS ORDERED: TUBERCULIN,PURIF.PROT.DERIV. 5 TU/0.1 ML TEST ID ONE (09:00)
--- NOTE | 2017-07-27 09:03 | NUR ---
PRN Re-Assessment Pt remains irritable, anxious, hyper-active, demanding and belligerent at times. Some minor relief noted, as pt has calmed slightly and is able to accept some re-direction. Will continue to monitor, support and encourage according to plan of care.
[2017-07-27] MEDS ORDERED: CLONIDINE HCL 0.1 MG TABLET PO ONE (10:30)
[2017-07-27] MEDS ORDERED: HYDROXYZINE PAMOATE 25 MG CAPSULE PO ONE (10:30)
[2017-07-27] MEDS ORDERED: OXCARBAZEPINE 150 MG TABLET PO ONE (10:30)
[2017-07-27] MEDS: PHENOBARBITAL 60 MG TABLET PO SCH ×3 (11:46→23:22)
--- NOTE | 2017-07-27 12:27 | NUR ---
PRN Valium Pt noted with extreme anxiety, agitation, and restlessness. He is pacing around the room, hyperverbal, and visibly diaphoretic. CIWA score 24. PRN Valium 20mg administered.
[2017-07-27] MEDS ORDERED: QUETIAPINE FUMARATE 25 MG TABLET PO PRN (13:15)
--- NOTE | 2017-07-27 13:30 | NUR ---
PRN Valium reassessment PRN Valium effective. Pt is less fidgety and anxious. CIWA score 9.
--- NOTE | 2017-07-27 17:57 | NUR ---
PRN Motrin Pt complains of generalized body aches and discomfort. Administered medication to order, with pt tolerating well. Will continue to monitor, support and encourage according to plan of care.
--- NOTE | 2017-07-27 18:00 | NUR ---
Nursing Note Pt reported one episode of vomiting light red blood. Dr. Gay made aware. Pt instructed to show nurse if it occurs again.
--- NOTE | 2017-07-27 18:57 | NUR ---
SORIN Taylor Re-Assessment Pt endorses some minor relief, rating pain at 5/10, with no further interventions requested. Will continue to monitor, support and encourage according to plan of care.
--- NOTE | 2017-07-27 19:00 | NUR ---
End of Shift Meat Supervisor provided report on 37 year old male admitted to [facility] on 07/26/17 for medical management of Benzodiazepine, Opiate and Cocaine withdrawals. Pt endorses NKA, full code and regular diet. Pt has a PMH of Hepatitis C and a PPH of anxiety and insomnia. Skin intact with no known seizure history. Pt started on Phenobarbital and Subutex taper. Pt received Valium(anxiety) x2 and Motrin(pain) PRN on my shift. Last COWS 19 CIWA 15, recorded at 1630. Pt has been loud, entitled and demanding all shift. Pt is anxious, needy and entitled. Pt is impulsive, erratic and unpredictable. Pt perseverates on medication and asks for additional doses and increased doses on all medication prescribed. Pt is A/O x4, denies A/VH, but is seen talking to unseen others. Bed in low position with wheels locked and side rails up x2.
--- NOTE | 2017-07-27 19:15 | NUR ---
Start of Shift Note: Received patient from day shift nurse. Patient is a 37 y.o male admitted on 07/26/17 for multiple substance use. Patient received in bed with eyes close. Patient show no signs of distress. No facial grimacing noted. Respiration even & unlabored. Patient is on a Phenobarbital and Subutex taper and tolerates well. He has been demanding the whole day per report. He received PRN Valium 20mg 2x and Motrin for aches. Will monitor closely symptoms of withdrawal and vitals signs. Safety precaution are in place. Bed locked in lowest position. Both side rails up. Call light within pt's reach. Will continue to monitor patient.
[2017-07-27] MEDS ORDERED: QUETIAPINE FUMARATE 100 MG TABLET PO SCH (21:00)
[2017-07-27] MEDS: QUETIAPINE FUMARATE 200 MG TABLET PO SCH (23:23)
[2017-07-27] MEDS: OXCARBAZEPINE 150 MG TABLET PO SCH (23:23)
--- NOTE | 2017-07-27 23:25 | NUR ---
PRN Valium Pt is very restless, anxious, agitated, & noted pacing around the room. Pt has racing thoughts and noted with poor concentration. Pt has pressured speech, manipulative and requires ongoing boundary setting. Pt is very demanding and gets easily agitated if demand is not given. Pt remains alert & oriented to name, place and situation. CIWA 21 noted at this time. PRN Valium 20mg administered as ordered. Safety precautions are in place. Will continue to monitor patient. Addendum: 07/28/17 at 0712 by RANDALL MARTINEZ RN ADDENDUM: Vitals signs was checked at this time. B/P 113/77, CO 86. Pt stated "I just woke up that is too low my vitals signs are usually higher, you have to take it again after a minute". Pt noted to be manipulating vitals signs by pacing and holding his breath. Rechecked vitals signs. B/P 128/99, CO 95. Will continue to monitor patient.
--- NOTE | 2017-07-27 23:30 | NUR ---
Behavior Note: Primary Nurse & Charge nurse @ bedside. During medication administration, pt noted to be pacing in his room, wringing his hands, agitated, restless & fidgety. Pt was observed trying to hide medications in his hands. Confronted patient of his behavior, pt became agitated & aggressive to primary nurse & pt stated "I need you to leave the room!". Charge nurse administered medications with SAND MILL OPERATOR FACING SAND supervisor cured meats in room. Pt educated of rules and boundaries of unit.
--- NOTE | 2017-07-28 00:25 | NUR ---
PRN Reassessment PRN Valium effective. Patient noted to be less fidgety, less anxious and irritable. Pt able to be redirected. CIWA 14 noted at this time. Safety measures in place. Will continue to monitor patient.
[2017-07-28 04:00] VITALS: BP 115/65
[2017-07-28] MEDS: IBUPROFEN 600 MG TABLET PO PRN ×2 (05:30→14:17)
--- NOTE | 2017-07-28 05:30 | NUR ---
RN note PRN Motrin Patient was offered Motrin for pain. Patient stated, "You woke me up because I thought I heard that you are giving me Valium." Patient became upset that he was not given Valium. Primary Nurse clarified that patient is being given Motrin for pain as part of his withdrawal symptoms and was explained the indications of the medication being given. Patient sat up in bed and took the medication. Then the patient asked for Valium and verbalized symptoms of anxiety, tremors and pain on both shoulders. CIWA was assessed=17.
[2017-07-28] MEDS: DIAZEPAM 10 MG TABLET PO PRN ×4 (05:47→18:23)
--- NOTE | 2017-07-28 05:48 | NUR ---
RN note PRN Valium Pt with increasing agitation and anxiety. CIWA=17. Administered Valium 20 mg PO. Will reassess.
--- NOTE | 2017-07-28 05:49 | NUR ---
RN note PRN Valium Patient complained of abdominal cramping. PRN Bentyl 20 mg PO was administered. Patient initially took the medication and spit it out. Nurse spoke to the patient and asked for the reason why he spit his medication out. Patient verbalized, "the pill got stuck in my throat so I had to spit it out." Patient took the medication on from the floor and tried to put it in his pocket. Nurse told patient that the medication is already unclean and needs to be destroyed. Patient then took the medication from his pocket and swallowed the pill. Mouth checked and medication was noted to be swallowed. Patient was provided education about medications. Addendum: 07/28/17 at 0740 by NICHOLAS CASAS RN Correction: PRN Bentyl Addendum: 07/28/17 at 0741 by NICHOLAS CASAS RN Correct time should be 0604. This is an explanation of the events that happened surrounding the administration of Bentyl.
--- NOTE | 2017-07-28 06:04 | NUR ---
RN note PRN Bentyl Pt c/o abdominal spasm, administered Bentyl 20 mg PO as ordered. Will reassess.
--- NOTE | 2017-07-28 07:29 | NUR ---
End of Shift Note: Patient monitored closely during shift. Patient continues to present restlessness, anxiety, agitation. Pt is very manipulative, erratic, loud, has raced thoughts and has been demanding medications all night. Pt continues on his Phenobarbital & Subutex taper and tolerated well. Last COWS 14 CIWA 17. Pt received PRN Valium 20mg x2, Motrin for aches & Bentyl for abdominal cramping. Pt also observed to be manipulating his vitals signs by pacing & holding his breath. Pt requires ongoing boundary settings. Continue to closely monitor pt for s/s of withdrawal and vitals signs. Patient is AOx3. No episodes of hallucinations. Non pharmacological intervention utilized. Encourage pt to increase fluid intake as tolerated. Pt slept intermittently for a total of 6 hours. Fluid intake: 897 ml, Voided 2x with no bowel movement. All needs attended & met. Safety measures in place. Will endorse pt to day shift nurse.
--- NOTE | 2017-07-28 07:30 | NUR ---
PRN Medication Re-Assessment Pt. appears agitated, restless and verbalizes feelings of anxiety. Pt. reports body aches, headache, and diarrhea x1. Pt. offered PRN medications for body aches and diarrhea but pt. refused. Stating "I want pheno, only pheno is going to work." Will give scheduled medication as prescribed. Will continue to monitor pt.'s behavior for safety.
--- NOTE | 2017-07-28 07:58 | NUR ---
Start of Shift Note Pt. is a 37 year old male admitted to [facility] on 07/26/17 for medical supervised withdrawal of Benzodiazepine, Opiate and Cocaine. Pt endorses NKA, full code and regular diet. Pt has a PMH of Hepatitis C and a PPH of anxiety and insomnia. Skin intact with no known seizure history. Pt placed on a Phenobarbital and Subutex taper per MD order. Pt received Valium(anxiety) x2 and Motrin(pain) PRN during PM shift. Pt. in received in room and appears anxious, restless with visible facial flushing and malodorous. Pt.s room is cluttered and malodorous too. Pt. states being upset over being woken up at 0530 for medication administration. Endorsed pt.s behavior during pm shift was loud, entitled and demanding all shift. Pt is anxious, needy and entitled. Pt is impulsive, erratic and unpredictable. Encouraged pt. to maintain a clean personal space. Pt is A/O x4, denies A/VH . Bed in low position with wheels locked and side rails up x2. Will continue to monitor pt.s behavior for safety.
[2017-07-28 08:06] LABS: HEPATITIS B SURFACE AG Negative (Negative)
[2017-07-28] MEDS: GABAPENTIN 400 MG CAPSULE PO SCH (08:07)
[2017-07-28] MEDS: OXCARBAZEPINE 150 MG TABLET PO SCH (08:08)
[2017-07-28] MEDS: BUPRENORPHINE HCL 2 MG TAB.SUBL SL SCH ×3 (08:12→20:43)
--- NOTE | 2017-07-28 08:30 | NUR ---
Behavioral Note/Patient Education: Charge Nurse Rio and primary nurse Jyoti reported behavioral issues with client throughout the night. Patient informed of unit rules regarding medication administration and behavioral expectations. Braille Operator advised patient that he must remain sitting with hands away from face during medication administration, and that repeated non-compliance will result in medications being crushed and/or not administered. Additionally, patient educated on behavioral expectation, and that he is to maintain a respectful distance from staff members, not put his finger in people's faces, and not be verbally or physically aggressive. Patient made aware that if there are repeated episodes then smoking privileges will be revoked. Patient is noted to be argumentative, using loud tone, tangential and rapid speech, is grandiose, and invades personal space by standing up and point finger in the face of the ad copy writer approximately one foot away. Addendum: 07/28/17 at 1023 by CINTHYA GAMBOA RN Clinical therapy, medical or surgical instrument maker, and additional administrative staff members made aware for additional education opportunities.
[2017-07-28 08:57] VITALS: BP 135/118
[2017-07-28] MEDS ORDERED: HYDROXYZINE PAMOATE 25 MG CAPSULE PO PRN (09:00)
[2017-07-28] MEDS ORDERED: PHENOBARBITAL 60 MG TABLET PO SCH ×2 (09:00)
--- NOTE | 2017-07-28 10:05 | NUR ---
PRN Medication Pt. is agitated and is verbalizing feelings of anxiety. Pt.'s face is flushed with visible hand tremors. Pt. is medication focused, and continues to be intrusive with poor boundaries. Gave pt. Valium 20mg, and Vistaril 25mg at this time. CIWA at this time is 20. Will continue to monitor pt.'s behavior for medication effectiveness.
--- NOTE | 2017-07-28 11:15 | NUR ---
PRN Re-Assessment Pt. in bed with eyes closed. No signs of SOB noted. Medication effective. Will continue to monitor pt.'s behavior for safety.
[2017-07-28 12:45] VITALS: BP 144/98
[2017-07-28] MEDS: GABAPENTIN 300 MG CAPSULE PO SCH ×3 (12:50→20:42)
[2017-07-28] MEDS: PHENOBARBITAL 60 MG TABLET PO SCH ×3 (12:50→20:43)
[2017-07-28] MEDS: DICYCLOMINE HCL 20 MG TABLET PO SCH ×2 (14:17→20:42)
--- NOTE | 2017-07-28 14:17 | NUR ---
PRN Medication Pt. in his room pacing with flushed faced. Pt. reports increase levels of anxiety, generalized body aches, and abdominal cramps. Pt. complains of diarrhea but refuses Imodium. At this time pt. was given motrin, valium and clonidine. Pt.'s B/P is 144/98 with 95 pulse. Pt.'s current CIWA is 22 and current COW is 18 will continue to monitor for medication effectiveness.
--- NOTE | 2017-07-28 15:20 | NUR ---
PRN Re-Assessment Pt. still reports elevated doses of anxiety and is still restless. Pt. is able to be more easily redirected at this time, and is more aware of personal space. Pt. is still in impulsive and irritable but visibly calmer than before. Medication effective. Will continue to monitor pt.'s behavior for safety.
[2017-07-28 16:00] VITALS: BP 138/112
--- NOTE | 2017-07-28 18:20 | NUR ---
PRN Medication Pt. presented to the nursing station anxious, medication focused, restless, agitated and irritable. Pt. requesting PRN Valium at this time. Valium 20mg given for CIWA of 22 Will continue to monitor pt.'s behavior for medication effectiveness.
--- NOTE | 2017-07-28 19:12 | NUR ---
PRN Re-Assessment Pt. out in the patio visibly less restless and anxious. Medication effective. Will endorse pt.'s care to oncoming shift
--- NOTE | 2017-07-28 19:13 | NUR ---
End of Shift Note Pt. is a 37 year old male admitted to [facility] on 07/26/17 for medical supervised withdrawal of Benzodiazepine, Opiate and Cocaine. Pt has a PMH of Hepatitis C and a PPH of anxiety and insomnia. Skin intact with no known seizure history. Pt placed on a Phenobarbital and Subutex taper per MD order. Pt received Valium(anxiety) x3, Clonidine(Anxiety) x 1, Vistaril(Anxiety) x 1 and Motrin(pain) PRN during AM shift. Pt. remained restless with visible facial flushing and malodorous throughout shift. Pt.s room is cluttered and malodorous too. Pt. has been focused on his medication administration throughout the day, constantly attempting to get more medications. Endorsed pt.s behavior to PM shift. Pt is anxious, needy and entitled, with poor boundaries and impulse control. Pt is impulsive, erratic and unpredictable. Encouraged pt. to maintain a clean personal space. Educated pt. on unit policies and procedures. Encouraged pt. to verbalize concerns and emotions. Pt is A/O x4, denies AH/VH . Bed in low position with wheels locked and side rails up x2. Will endorse pt.s care to pm shift.
--- NOTE | 2017-07-28 19:14 | NUR ---
Start of shift note Received report from day shift nurse. Pt is a 37 yo male, A+Ox4, presenting to [facility] for Benzo/Opiate/Cocaine withdrawal. Pt noted to be agitated, anxious, restless, irritable, and having mildly aggressive demeanor. Pt has HX of Anxiety, insomnia, and Hep C which will be monitored during shift. Pt is on 5 day Phenobarbital, 5 day Subutex tapers, and PRN Valium, tolerated well. Respirations even and unlabored. Will continue to monitor.
[2017-07-28 20:21] VITALS: BP 120/93
--- NOTE | 2017-07-28 20:45 | NUR ---
Medication administration episode While i was in the patient's room to administer medications patient was seated at the end of the bed. I gave the patient 4mg of Subutex to be taken sublingually. Pt placed medication under tongue and immediately stood up and attempted to turn his back to me. I advised the patient that he must stay seated where he was facing me so that i may monitor his Subutex administration. Pt sat back down on end of bed for 5-10 seconds and then stood up once more stating "Man, i need to lay down". I placed my hand on patient's arm with no intention of harm but to remind the patient once more that he must stay seated where he was facing me so that i may monitor his Subutex administration. Pt stated "don't touch me." refused to follow direction and proceeded to lie down on bed. After about 10 seconds patient states "Ok it's done" (referring to the Subutex). I asked the patient to allow me to do an oral check and patient spread his mouth open with both hands. While doing so i saw two Subutex tablets drop from the patient's roof of his mouth and one of them stuck to his right index finger. Not knowing if the patient saw the medication stick to his finger or not, i lifted the patients arm by his wrist to secure the Subutex dose so that he did not drop, lose, or hide the medication. The patient stated "That's the second time that you put your hands on me." I once again advised the patient that i it is my job to ensure that all medications are taken appropriately according to hospital/unit protocols. Pt then sat in one place for 4 minutes until Subutex dosage was dissolved sublingually. Second oral check conducted and medication noted to be dissolved. Left room and closed door. Respirations even and unlabored. Will continue to monitor.
[2017-07-28] MEDS ORDERED: OXCARBAZEPINE 300 MG TABLET PO SCH (21:00)
[2017-07-28] MEDS ORDERED: CLONIDINE HCL 0.1 MG TABLET PO SCH (21:00)
[2017-07-28] MEDS ORDERED: BACLOFEN 10 MG TABLET PO SCH (21:00)
[2017-07-28] MEDS ORDERED: PHENOBARBITAL 60 MG TABLET PO ONE (22:15)
[2017-07-28] MEDS ORDERED: HYDROXYZINE PAMOATE 25 MG CAPSULE PO ONE (22:15)
[2017-07-28] MEDS: QUETIAPINE FUMARATE 200 MG TABLET PO SCH (22:17)
--- NOTE | 2017-07-28 23:15 | NUR ---
Outburst episode Pt was having another episode of aggressive behavior and yelling/swearing. Code jasmin was called and when patient heard the code castellanos announced on overhead speaker, patient ran headed toward stairs near elevators. Pt ran down the stairs and outside toward smoking patio. Pt was followed to patio being that there was an active code castellanos. Pt stated "I want to leave AMA now." Paperwork and belongings brought to patient.
--- NOTE | 2017-07-28 23:27 | NUR ---
AMA note Pt left facility AMA. Pt was stable upon departure, denies any SI/HI, is A+Ox4, and denies hallucinations. AMA paperwork signed and all belongings returned to patient. Pt left facility under own strength and knowledge.
[2017-07-29] MEDS ORDERED: GABA800T2 PO (04:45)
[2017-07-29] MEDS ORDERED: QUET200T PO (04:45)
[2017-07-29] MEDS ORDERED: OXCA150T5 PO (04:45)
[2017-07-29] MEDS ORDERED: METH-406 PO (06:08)
[2017-07-29] MEDS ORDERED: BACL10TA PO (06:08)
[2017-07-29] MEDS ORDERED: BUPRENORPHINE HCL 2 MG TAB.SUBL SL SCH ×2 (09:00→15:00)
[2017-07-29] MEDS ORDERED: PHENOBARBITAL 60 MG TABLET PO SCH ×2 (09:00)
[2017-07-30] MEDS ORDERED: PHENOBARBITAL 60 MG TABLET PO SCH (09:00)
[2017-07-30] MEDS ORDERED: BUPRENORPHINE HCL 2 MG TAB.SUBL SL SCH (21:00)
[2017-07-31] MEDS ORDERED: BUPRENORPHINE HCL 2 MG TAB.SUBL SL SCH (09:00)
[2017-07-31] MEDS ORDERED: PHENOBARBITAL 60 MG TABLET PO SCH (09:00)
== END 2017-07-28 23:27 | disposition left against medical advice (07) | DRG 894 ==
LOC: SRC 17:03
PROVIDERS: ADMIT Internal Medicine; ATTEND Internal Medicine
PROC: HZ2ZZZZ Detoxification Services for Substance Abuse Treatment (ICD-10-PCS; principal; 2017-07-26)
PROC: HZ31ZZZ Individual Counseling for Substance Abuse Treatment, Behavioral (ICD-10-PCS; 2017-07-28)
PROC: HZ41ZZZ Group Counseling for Substance Abuse Treatment, Behavioral (ICD-10-PCS; 2017-07-28)
DX: F11.23 Opioid dependence with withdrawal (principal); Z86.74 Personal history of sudden cardiac arrest; F14.20 Cocaine dependence, uncomplicated; I15.9 Secondary hypertension, unspecified; F17.210 Nicotine dependence, cigarettes, uncomplicated; F13.232 Sedative, hypnotic or anxiolytic dependence with withdrawal with perceptual disturbance; Z91.89 Other specified personal risk factors, not elsewhere classified; G47.00 Insomnia, unspecified; F41.0 Panic disorder [episodic paroxysmal anxiety]; F10.21 Alcohol dependence, in remission; Y90.0 Blood alcohol level of less than 20 mg/100 ml; F39 Unspecified mood [affective] disorder; B19.20 Unspecified viral hepatitis C without hepatic coma; E86.0 Dehydration
CPT/HCPCS: 36415; 70030-TC; 80307; 83735; 84443; 85025; 86592; 86705; 86803; 87340; 87806; A4663; G0480; J8499; Q0162; Q0163

== ENCOUNTER 2017-07-29 01:52 | Inpatient (IN) | payer BC, OTHER ==
[~2017-07-29] VITALS: Ht 177.8 cm; Wt 95.3 kg
[2017-07-29] MEDS ORDERED: IV NORMAL SALINE 1000 ML BAG IV ONE (02:30)
[2017-07-29 02:31] LABS: ABG BASE EXCESS 3.6 mmol/L; ABG HCO3 29.8 mmol/L; ABG PH 7.376 (7.350-7.450); ABG PO2 57.6 mmHg (75.0-100.0); ABG SITE RIGHT RADIAL; ABG TOTAL HEMOGLOBIN 12.5 G/dL (13.5-18.0); COHb 3.4 % (0.5-1.5); MetHb 0.3 % (0.0-1.5); O2Hb 86.2 % (94.0-97.0); VENT MODE Room Air
--- NOTE | 2017-07-29 03:30 | NUR ---
PT IN ROUTE TO CT IN [facility] WITH TRANSPORTER
[2017-07-29 03:45] LABS: *BILIRUBIN,URIN NEGATIVE (NEGATIVE); *BLOOD, URINE NEGATIVE (NEGATIVE); *CLARITY,URINE SLIGHTLY CLOUDY (CLEAR); *COLOR,URINE YELLOW (YELLOW); *KETONES,URINE NEGATIVE (NEGATIVE); *PROTEIN,URINE NEGATIVE (NEGATIVE); *UROBILINOGEN,URINE 0.2 E.U./dl (NORMAL); LEUKOCYTE ESTERASE ,URINE NEGATIVE (NEGATIVE); NITRITE, URINE NEGATIVE (NEGATIVE); PH,URINE 5.5 (5.0-8.0); UGLUCOSE NEGATIVE (NEGATIVE)
[2017-07-29 03:52] LABS: BACTERIA,URINE NONE SEEN /HPF (NONE SEEN); RBC,URINE NONE SEEN /HPF (0-3); TRANSITIONAL EPI CELLS,URINE MANY /LPF (NONE SEEN); WBC,URINE 0-3 /HPF (0-3)
[2017-07-29 03:53] LABS: MUCUS,URINE FEW /LPF (0-FEW)
--- NOTE | 2017-07-29 03:57 | NUR ---
PT RETURNS FROM CT IN [facility] WITH TRANSPORTER
[2017-07-29 04:06] LABS: *AMPHETAMINE, URINE NEGATIVE (NEGATIVE); *BARBITURATE, URINE POSITIVE (NEGATIVE); *CANNABINOID, URINE NEGATIVE (NEGATIVE); *COCCAINE, URINE NEGATIVE (NEGATIVE); *PHENCYCLIDINE SCREEN,URINE NEGATIVE (NEGATIVE)
--- NOTE | 2017-07-29 04:07 | NUR ---
PT IN BED. PT IS RESTING QUIETLY. RALES AND CRACKLES AUSCULTATED BILATERALLY. MADE AWARE.
--- NOTE | 2017-07-29 04:17 | NUR ---
UNABLE TO DRAW BLOOD AFTER SEVERAL ATTEMPTS. MADE AWARE.
[2017-07-29 04:29] LABS: BASOPHILS % (AUTO) 0.4 % (0.0-2.0); EOSINOPHILS # (AUTO) 0.3 K/uL (0.0-0.7); EOSINOPHILS % (AUTO) 3.7 % (0.0-7.0); HEMATOCRIT 41.7 % (36.7-47.1); LYMPHOCYTES # (AUTO) 2.7 K/uL (20.0-40.0); LYMPHOCYTES % (AUTO) 33.8 % (20.5-51.5); MEAN CORPUSCULAR HEMOGLOBIN 20.6 uug (23.8-33.4); MEAN CORPUSCULAR HGB CONC 31 g/dL (32.5-36.3); MEAN CORPUSCULAR VOLUME 65.9 fL (73.0-96.2); MONOCYTES # (AUTO) 0.7 K/uL (2.0-10.0); MONOCYTES % (AUTO) 8.3 % (0.0-11.0); NEUTROPHILS # (AUTO) 4.2 K/uL (1.8-8.9); NEUTROPHILS % (AUTO) 53.8 % (38.5-71.5); PLATELET COUNT (AUTO) 221 K/uL (152-348); RED BLOOD CELL COUNT(AUTO) 6.33 MIL/uL (4.06-5.63); WHITE BLOOD COUNT (AUTO) 7.9 K/uL (3.6-10.2)
[2017-07-29] MEDS ORDERED: GABA800T2 PO (04:45)
[2017-07-29] MEDS ORDERED: QUET200T PO (04:45)
[2017-07-29] MEDS ORDERED: OXCA150T5 PO (04:45)
--- NOTE | 2017-07-29 05:15 | NUR ---
MD ACKERMAN SUCCESSFUL ABLE TO PERFORM BLOOD DRAW THROUGH FEMORAL STICK
[2017-07-29 05:30] LABS: CARBON DIOXIDE 32 mmol/L (21-32); CHLORIDE 104 mmol/L (98-107); GLUCOSE 97 mg/dL (74-106); POTASSIUM 4.5 mmol/L (3.5-5.1); UREA NITROGEN, BLOOD 16 mg/dL (7-18)
[2017-07-29 05:41] LABS: ETHANOL < 3 MG/DL (0-0)
[2017-07-29 05:43] LABS: THYROID STIMULATING HORMONE 1.003 mIU/mL (0.358-3.740)
[2017-07-29 05:47] LABS: ALANINE AMINOTRANSFERASE 49 U/L (16-63); ALKALINE PHOSPHATASE 44 U/L (50-136); ASPARTATE AMINOTRANSFERASE 20 U/L (15-37); BILIRUBIN,DIRECT 0.1 mg/dL (0.0-0.2); BILIRUBIN,TOTAL 0.3 mg/dL (0.2-1.0); TOTAL PROTEIN, SERUM 6.7 g/dL (6.4-8.2)
[2017-07-29 05:48] LABS: ACETAMINOPHEN < 2.0 ug/mL (10-30)
--- NOTE | 2017-07-29 06:02 | NUR ---
PT IN BED. PT IS RESTING QUIETLY WITH EYES CLOSED. VSS AND WNL. PT STILL ON 4LT NASAL CANNULA. NO SIGNS OF DISTRESS WITNESSED AT THIS TIME.
[2017-07-29] MEDS ORDERED: METH-406 PO (06:08)
[2017-07-29] MEDS ORDERED: BACL10TA PO (06:08)
--- NOTE | 2017-07-29 06:11 | NUR ---
CALL PLACED TO [facility] FOR HOSPITAL ADMISSION
[2017-07-29 06:29] LABS: EOSINOPHILS % (MANUAL) 4 % (0-8); LYMPHOCYTES % (MANUAL) 34 % (20-40); MONOCYTES % (MANUAL) 8 % (2-10); NEUTROPHILS % (MANUAL) 54 % (42-75)
[2017-07-29] MEDS ORDERED: IV NS 1000 ML 1,000 ML IV PRN (06:46)
[2017-07-29] MEDS ORDERED: ONDANSETRON 4 MG/2 ML VIAL IV PRN (07:00)
[2017-07-29] MEDS ORDERED: ACETAMINOPHEN 325 MG TABLET PO PRN (07:00)
[2017-07-29] MEDS ORDERED: MAGNESIUM HYDROXIDE 30 ML LIQUID UDC PO PRN (07:00)
[2017-07-29 07:10] LABS: *OPIATE, URINE NEGATIVE (NEGATIVE)
--- NOTE | 2017-07-29 07:14 | NUR ---
REPORTS GIVEN TO JOSE ANGEL MACIEL.
[2017-07-29] MEDS ORDERED: LORAZEPAM 2 MG/1 ML VIAL IV ONE ×2 (07:15→07:45)
[2017-07-29] MEDS ORDERED: LORAZEPAM 2 MG/1 ML VIAL ONE ×2 (07:19→07:34)
--- NOTE | 2017-07-29 07:39 | NUR ---
UPON ARRIVAL AT 0719 PT UNCOOERATIVE, ATTEMPTED TO CALM PT DOWN. PT BEGAN YELLING AT STAFF AND THREATENING PHYSICAL HARM, SANDEEP CONLEY CALLED AT 0718, PT REMAINED HOSTILE AND UNCOOPERATIVE, NURSING POTTERY STRIPER REJI, SECURITY AND STAFF PRESENT. DR REYNAGA ORDERED 4 PT RESTRAINTS. PT ATTEMPTED TO HURT STAFF BY KICKING,BITING,SPITTING,YELLING.
[2017-07-29] MEDS ORDERED: OLANZAPINE 10 MG VIAL IM ONE (08:00)
--- NOTE | 2017-07-29 08:05 | NUR ---
AT THIS TIME PT IS SLEEPING, MONITOR SHOWS NSR, PO2=96% ON 2L O2 VIA NC, VSS.
--- NOTE | 2017-07-29 08:23 | NUR ---
4 PT RESTRAINTS REMOVED, PT SLEEPING. PT TO RM VIA MERE.
--- NOTE | 2017-07-29 08:45 | NUR ---
PT IS AGGRESSIVE, WANDERING THE HALLS GOING INTO OTHER PTS ROOMS, HYPERVERBAL, AOX3, VERBALLY ABUSIVE, NOT ALLOWING CARE. DEMANDING, YELLING AND SCREAMING AT STAFF. THREATENING STAFF. CODE CONLEY CALLED. ATIVAN 1MG GIVEN. MEDICATION NOT AFFECTIVE. PT UNCOOPERATIVE WITH ADMISSION QUESTIONS AT THIS TIME.CONTINUE TO MONITOR PT.
[2017-07-29] MEDS ORDERED: LORAZEPAM 2 MG/1 ML VIAL IV PRN (09:30)
--- NOTE | 2017-07-29 10:20 | NUR ---
PT VERBALIZES HE WANTS TO LEAVE AMA. PT WAS EDUCATED ABOUT THE RISKS OF LEAVING AMA. PT IS VERBALLY ABUSIVE AND ANGRY THAT HE IS AT THE HOSPITAL. PT SIGNED THE AMA FORM AND LEFT WITH ALL HIS ITEMS. PT IV SITE AND ID BAND REMOVED. PT OFFERED EDUCATION AND PAPER WORK PT REFUSED PAPER WORK AND REFUSED TO SIGN BELONGINGS LIST. PT TOOK ALL BELONGINGS AND VALUABLES. PT ESCORTED DOWN STAIRS BY ENCINO STAFF.
== END 2017-07-29 10:20 | disposition left against medical advice (07) | DRG 917 ==
LOC: ER 02:09 → TELE 08:20
PROVIDERS: ADMIT Internal Medicine; ATTEND Internal Medicine
DX: T65.91XA Toxic effect of unspecified substance, accidental (unintentional), initial encounter (principal); G92 Toxic encephalopathy; F11.20 Opioid dependence, uncomplicated; F13.20 Sedative, hypnotic or anxiolytic dependence, uncomplicated; Y92.410 Unspecified street and highway as the place of occurrence of the external cause; R41.82 Altered mental status, unspecified; F10.10 Alcohol abuse, uncomplicated; Y90.0 Blood alcohol level of less than 20 mg/100 ml; G47.00 Insomnia, unspecified; F41.0 Panic disorder [episodic paroxysmal anxiety]; F39 Unspecified mood [affective] disorder; F14.10 Cocaine abuse, uncomplicated; F12.90 Cannabis use, unspecified, uncomplicated; F17.200 Nicotine dependence, unspecified, uncomplicated; G40.909 Epilepsy, unspecified, not intractable, without status epilepticus
CPT/HCPCS: 36415; 36600; 70030-TC; 70450; 71045; 72125; 80307; 83605; 84443; 85025; 85730; 87040; 87086; 93005; A4663; G0480; G0480-TC; J2060; J7030

== ENCOUNTER 2017-10-13 09:44 | Inpatient (IN) | payer BC, OTHER ==
[~2017-10-13] VITALS: Ht 190.5 cm; Wt 86.2 kg
[~2017-10-13 09:44] MED LIST changes: +BACL10TA PO; -CLON0.1T14 PO; -DICY20TA28 PO; -GABA-534 PO; +GABA800T2 PO; -HYDR-3895 PO; -IBUP-1955 PO; +OXCA150T5 PO; -QUET100T PO; +QUET200T PO; -QUET25TA PO
--- NOTE | 2017-10-13 10:30 | NUR ---
PRE-ADMISSION NOTE Received pt at intake, pt is A/Ox4, respirations even and unlabored. Pt is being admitted for medically supervised benzo and opiate withdrawal. Upon entering room, pt is sitting in chair, with an emesis bag. Pt states he is in benzo withdrawal, reporting he is nauseaous, shaky, sweaty, having hot/cold sweats, however pt appears drowsy, speaks in a low tone voice, slower than normal speech, periodically putting his head down and has his eyes closed. Pt states he is speaking this way due to being nauseous and states, "I am so sick, if I lift my head or talk louder I feel nauseous. I am a bit drowsy due to having no sleep last night." Pt reports NKA, no PMH. Pt reports having diagnosed anxiety. Initial VS are BP: 109/55, HR: 92, RR: 16, O2sat: 96%. Substance use Hx: 1. Xanax - 14-16 mg PO daily and has been using at this rate since July 26, 2017 which is the day he left [facility]. Pt states he has been using benzos for 2 years, with no period of sobriety in between (has been given a phenobarbital taper with a period of sobriety in July 26-2017 in detox, pt has been given on a Valium taper in detox in Feb 2017); pt states he continued to use benzos after leaving detox every time, buying them from someone he knows. Last used 12 mg yesteday 1200 10/12/17. First started using at age 19. 2. Subutex 8 mg PO daily x 3 years (pt has been in multiple detox and has been given a subutex taper). Pt states he continued to use subutex after leaving detox every time, with prescriptions. Last used yesterday 0900 10/12/17. First started using 3 years ago. 3. Phenobarbital >100+ mg PO for 12 days 2 weeks ago, however states he used 62.5 mg on 10/09/17. 4. Cocaine 1 gram insulfflation on 10/09/17. Pt states it was a one time use. 5. Meth "1 line" by insufflation on 10/09/17. Pt states he received "a line" from a random homeless man on [facility]. Pt states he has never used before.
[2017-10-13] MEDS ORDERED: LORAZEPAM 2 MG/1 ML VIAL IM PRN (10:45)
[2017-10-13] MEDS ORDERED: LORAZEPAM 1 MG TABLET PO PRN ×2 (10:45)
[2017-10-13] MEDS ORDERED: MIRALAX 17 GM POWD.PACK PO PRN (10:45)
[2017-10-13] MEDS ORDERED: diphenhydrAMINE 50 MG CAPSULE PO PRN (10:45)
[2017-10-13] MEDS ORDERED: ACETAMINOPHEN 325 MG TABLET PO PRN (10:45)
[2017-10-13] MEDS ORDERED: DICYCLOMINE HCL 20 MG TABLET PO PRN (10:45)
[2017-10-13] MEDS ORDERED: CLONIDINE HCL 0.1 MG TABLET PO PRN (10:45)
[2017-10-13] MEDS ORDERED: LOPERAMIDE HCL 2 MG CAPSULE PO PRN ×2 (10:45)
[2017-10-13] MEDS ORDERED: MAG HYDROX/AL HYDROX/SIMETH 30 ML LIQUID UDC PO PRN (10:45)
[2017-10-13 11:07] LABS: *AMPHETAMINE, URINE POSITIVE (NEGATIVE); *BARBITURATE, URINE NEGATIVE (NEGATIVE); *CANNABINOID, URINE POSITIVE (NEGATIVE); *COCCAINE, URINE POSITIVE (NEGATIVE); *OPIATE, URINE NEGATIVE (NEGATIVE); *PHENCYCLIDINE SCREEN,URINE NEGATIVE (NEGATIVE)
[2017-10-13] MEDS ORDERED: GABA600T2 PO (11:20)
[2017-10-13] MEDS ORDERED: QUET100T PO (11:21)
[2017-10-13] MEDS ORDERED: QUET50TA PO (11:21)
[2017-10-13] MEDS ORDERED: MIRT30TA7 PO (11:21)
[2017-10-13] MEDS ORDERED: ONDANSETRON 4 MG/2 ML VIAL IM PRN (13:00)
[2017-10-13] MEDS ORDERED: ONDANSETRON ODT 4 MG TAB.RAPDIS SL PRN (13:00)
[2017-10-13] MEDS ORDERED: 3 DAY TAPER BUPRENORPHINE -SERENITY PROTOCOL SL PRN (13:15)
[2017-10-13] MEDS ORDERED: 5 DAY TAPER VALIUM-SERENITY PROTOCOL PO PRN (13:15)
[2017-10-13 13:17] VITALS: BP 107/64
[2017-10-13] MEDS ORDERED: DIAZEPAM 10 MG TABLET PO PRN ×2 (13:30)
[2017-10-13] MEDS ORDERED: DIAZEPAM 5 MG TABLET PO PRN (13:30)
[2017-10-13] MEDS: DIAZEPAM 10 MG TABLET PO SCH ×3 (14:20→20:24)
[2017-10-13] MEDS: BUPRENORPHINE HCL 2 MG TAB.SUBL SL SCH ×2 (14:21→20:24)
[2017-10-13] MEDS: IBUPROFEN 600 MG TABLET PO PRN (14:29)
--- NOTE | 2017-10-13 14:29 | NUR ---
PRN Ibuprofen 400 mg po prn given for generalized body aches with facial grimacing, restlessness, irritability. Will monitor and reassess.
[2017-10-13 14:44] LABS: BASOPHILS % (AUTO) 0.3 % (0.0-2.0); EOSINOPHILS # (AUTO) 0.3 K/uL (0.0-0.7); EOSINOPHILS % (AUTO) 3.4 % (0.0-7.0); HEMATOCRIT 42.2 % (36.7-47.1); HEMOGLOBIN 13.3 g/dL (12.5-16.3); LYMPHOCYTES # (AUTO) 1.4 K/uL (20.0-40.0); LYMPHOCYTES % (AUTO) 19.7 % (20.5-51.5); MEAN CORPUSCULAR HEMOGLOBIN 20.9 uug (23.8-33.4); MEAN CORPUSCULAR HGB CONC 32 g/dL (32.5-36.3); MEAN CORPUSCULAR VOLUME 66.3 fL (73.0-96.2); MONOCYTES # (AUTO) 0.5 K/uL (2.0-10.0); MONOCYTES % (AUTO) 6.7 % (0.0-11.0); NEUTROPHILS # (AUTO) 5.1 K/uL (1.8-8.9); NEUTROPHILS % (AUTO) 69.9 % (38.5-71.5); PLATELET COUNT (AUTO) 199 K/uL (152-348); RED BLOOD CELL COUNT(AUTO) 6.35 MIL/uL (4.06-5.63); WHITE BLOOD COUNT (AUTO) 7.3 K/uL (3.6-10.2)
[2017-10-13 14:55] LABS: ALANINE AMINOTRANSFERASE 50 U/L (16-63); ALKALINE PHOSPHATASE 52 U/L (50-136); ASPARTATE AMINOTRANSFERASE 17 U/L (15-37); BILIRUBIN,TOTAL 0.5 mg/dL (0.2-1.0); CARBON DIOXIDE 26 mmol/L (21-32); CHLORIDE 104 mmol/L (98-107); CREATININE 1.2 mg/dL (0.6-1.3); GLUCOSE 106 mg/dL (74-106); MAGNESIUM 2.1 mg/dL (1.8-2.4); POTASSIUM 4.5 mmol/L (3.5-5.1); TOTAL PROTEIN, SERUM 7.1 g/dL (6.4-8.2); UREA NITROGEN, BLOOD 17 mg/dL (7-18)
--- NOTE | 2017-10-13 15:29 | NUR ---
REASSESSMENT Pt reported med as effective in decreasing intensity however have some body aches lingering. Will cont to monitor.
[2017-10-13 16:30] VITALS: BP_SYST 100; BP_SYST 109; BP_DIAS 67; BP_DIAS 70
--- NOTE | 2017-10-13 16:35 | NUR ---
COWS 7 and CIWA 9 Pt reports having body aches, increased anxiety and agitation, restlessness, tremors, hot/cold sweats, and nausea. Ibuprofen prn given. Zofran prn to be administered. Safety measures in place. Will continue to monitor.
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
[2017-10-13 17:07] LABS: ETHANOL < 3 MG/DL (0-0)
--- NOTE | 2017-10-13 17:52 | NUR ---
PRN Zofran 4 mg SL prn given for nausea. Will monitor and reassess.
[2017-10-13 18:34] LABS: BAND % (MANUAL) 5 % (0-10); EOSINOPHILS % (MANUAL) 2 % (0-8); LYMPHOCYTES % (MANUAL) 20 % (20-40); MONOCYTES % (MANUAL) 6 % (2-10); NEUTROPHILS % (MANUAL) 67 % (42-75)
--- NOTE | 2017-10-13 18:52 | NUR ---
REASSESSMENT Pt is resting in bed with eyes closed but easily arousable. Will continue to monitor.
--- NOTE | 2017-10-13 19:33 | NUR ---
END OF SHIFT Pt is currently resting in room quietly. Pt has been given zofran and ibuprofen PRNs during shift and was effective. Last COWS 7 and CIWA 9. Pt ate 100% of meals. Endorsement given to restaurant shift leader nurse.
--- NOTE | 2017-10-13 19:50 | NUR ---
Start of Shift Note Received 37 y/o male jena, admitted for medically supervised withdrawal from Benzos and opiate. Px is placed on 5 day Valium taper and 3 day Subutex taper started today, 10/13/2017. Last reported COWS 7 and CIWA 9. During the rounds at 1950, jena is awake on bed in fowlers position, watching TV. Px appears anxious, and has emotional volatility. He is disheveled and unshaven. Px stated that his anxiety is 9/10 and complains of body aches of 7/10, sweats, flush and chills, stomach cramps, constipation, stuffy nose and mild visual hallucinations. He said "I get to see a girl on my periphery but when I look, the person is gone." Bilateral hand tremors are evident. Bed on lowest position, side rails up 2x, and call light within reach. We'll continue to monitor.
[2017-10-13 20:00] VITALS: BP 112/79
--- NOTE | 2017-10-13 20:00 | NUR ---
COWS 12 and CIWA 17 Px stated that his anxiety is high at 9/10 with body aches of 7/10, and complains of sweats, flush and chills, stomach cramps, constipation, stuffy nose and mild visual hallucinations. Bilateral hand tremors are noted. We'll continue to monitor.
--- NOTE | 2017-10-13 20:30 | NUR ---
PRN medications Px received Bentyl 20 mg PO for stomach cramps and Milk of Magnesia 30 ml PO for constipation. We'll continue to monitor.
[2017-10-13] MEDS: MAGNESIUM HYDROXIDE 30 ML LIQUID UDC PO PRN (20:32)
[2017-10-13] MEDS ORDERED: QUETIAPINE FUMARATE 25 MG TABLET PO SCH (21:00)
[2017-10-13] MEDS ORDERED: BUPRENORPHINE HCL 2 MG TAB.SUBL SL SCH (21:00)
--- NOTE | 2017-10-13 21:25 | NUR ---
Reassessment of stomach cramps Px stated that his stomach cramps improved after an hour of administration of Bentyl 20 mg PO.
--- NOTE | 2017-10-13 21:55 | NUR ---
COWS 12 reassessment Px stated that his anxiety is still high with body aches of 7/10, and complains of sweats, flush and chills, stomach cramps, constipation, and stuffy nose. Bilateral hand tremors are noted. We'll continue to monitor.
--- NOTE | 2017-10-13 22:25 | NUR ---
SHARAWA 17 reassessment Px stated that his anxiety is still high with body aches of 7/10, and complains of sweats, flush and chills, stomach cramps, constipation, and stuffy nose. Bilateral hand tremors are noted. Px received Bentyl 20 mg pO and MOM 30 ml earlier. We'll continue to monitor.
--- NOTE | 2017-10-14 | NUR ---
VS refused Px stated that he doesn't want to be bothered taking VS at night if he is sleeping.
--- NOTE | 2017-10-14 | NUR ---
COWS and CIWA deferred COWS and CIWA deferred due to the px is asleep, to assess if the px is awake per doctor's order. We'll continue to monitor.
--- NOTE | 2017-10-14 07:10 | NUR ---
End of Shift Note During the shift at 2023, px received Bentyl 20 mg PO for stomach cramps. It was effective. At 2031, px received MOM 30 ml PO for constipation. Px oral intake is 1000 ml, voided 2x, NO BM. Px slept for 7 hours. Last COWS 12 and CIWA 17. At 0630, px is asleep on bed in fowlers position. Bed on lowest position, side rails up 2x, and call light within reach. We'll continue to monitor. Px endorsed to AM shift nurse.
--- NOTE | 2017-10-14 07:30 | NUR ---
START OF SHIFT Pt 37 y/o male admitted for benzo and opiate withdrawal. Received in room awake sitting on bed. Alert and oriented to name, place, and time. Perrla. Skin warm and moist to touch. Respirations even and unlabored. Bilateral hand tremors noted. Appears disheveled and unkempt. Empty drink bottles scattered throughout the room. Clothes scattered throughout the room. Encouraged to maintain hygiene. Anxious and restless this morning. Observed pacing in room. Hyperverbal with pressured speech. Irritable. It was reported that pt slept for 7 hours last night. Pt is on a 5 day valium taper and is on day 2. Pt also on a 3 day subutex taper and is on day 2. Bed on lowest position with side rails x 2 up for safety. Call light within reach.
[2017-10-14 08:00] VITALS: BP 120/60
--- NOTE | 2017-10-14 08:00 | NUR ---
COWS CIWA ASSESSMENT cows=17 ciwa=16. Anxious and restless, pacing in room. Hyperverbal with pressured speech. Easily irritable and agitated. Not able to sit still. Bilateral hand tremors noted. Intermittent perspiration. Complaints of episodes of chills. Goosebumps.
[2017-10-14] MEDS: BUPRENORPHINE HCL 2 MG TAB.SUBL SL SCH ×3 (08:05→20:47)
[2017-10-14] MEDS: FOLIC ACID 1 MG TABLET PO SCH (08:06)
[2017-10-14] MEDS: MULTIVITAMINS,THERAPEUTIC TABLET PO SCH (08:06)
[2017-10-14] MEDS: DIAZEPAM 10 MG TABLET PO SCH ×3 (08:06→20:46)
[2017-10-14] MEDS ORDERED: TUBERCULIN,PURIF.PROT.DERIV. 5 TU/0.1 ML TEST ID ONE (09:00)
--- NOTE | 2017-10-14 10:00 | NUR ---
ZOFRAN REFUSE. Pt states feels nauseated. Offered Zofran odt prn per MD order, but pt refused, even with encouragement.
[2017-10-14 12:00] VITALS: BP 128/60
--- NOTE | 2017-10-14 12:00 | NUR ---
COWS CIWA ASSESSMENT cows=13 ciwa=13. Bilateral hand tremors noted. Irritable and agitated. Anxious and restless, not able to stay still. Complaints of generalized discomfort and intermittent perspiration. Complaints of episodes of chills.
[2017-10-14] MEDS: GABAPENTIN 300 MG CAPSULE PO SCH ×2 (12:05→16:10)
[2017-10-14] MEDS ORDERED: GABAPENTIN 300 MG CAPSULE PO SCH (13:00)
[2017-10-14 16:00] VITALS: BP 112/71
--- NOTE | 2017-10-14 16:00 | NUR ---
COWS CIWA ASSESSMENT cows=13 ciwa=13. Bilateral hand tremors noted. Periods of agitation and irritability. Anxious and restless, not able to sit/ lay still. Hyperverbal with pressured speech noted. Complaints of generalized discomfort. Piloerection. Complaints of chills and intermittent perspiration.
--- NOTE | 2017-10-14 18:44 | NUR ---
END OF SHIFT Pt 37 y/o male admitted for benzo and opiate withdrawal. Alert and oriented to name, place, and time. Perrla. Skin warm and moist to touch. Respirations even and unlabored. Bilateral hand tremors noted. Pt appears disheveled with hair uncombed. Food wrappings and empty drink bottles scattered throughout the room. Dirt under fingernails noted. Anxious and restless, not able to sit/ lay still today. Pressured speech. Intrusive and demanding. Focused on medications. Easily irritable. Generalized discomfort. Encouraged to maintain hygiene. Isolative with minimal peer interaction. Did not attend group activity. Medication compliant. Pt is on a 5 day valium taper and is on day 2. Pt also on 3 day subutex taper and is on day 2. Last cows=13 ciwa=13@1600. Bed on lowest position with side rails x2 up for safety. Call light within reach.
--- NOTE | 2017-10-14 19:49 | NUR ---
START OF SHIFT NOTE Rcvd report from outgoing nurse. Pt is a 37 y/o male A/O to person, place, time, and purpose. Pt was admitted for medically supervised withdrawal from Xanax, Phenobarbital, and Subutex. Pt also a h/o Cocaine and Methamphetamine substance use. Pt has been presenting w/ anxiety, agitation, emotional volatility, flat affect, tremors, sweats, chills, body aches, nausea, and dizziness. Pt is focused on medications and is intrusive about them. Pt does deny any S/I and H/I. Pt rcvd no PRN medications during previous shift. Last CIWA 13 and COWS 13 @ 1600. Call light is within reach. Pt will continue to be monitored and needs met.
[2017-10-14 20:00] VITALS: BP 108/64
--- NOTE | 2017-10-14 20:00 | NUR ---
CIWA AND COWS ASSESSMENT CIWA 17 and COWS 15. Pt presenting w/ anxiety, agitation, emotional volatility, tremors, sweats, chills, body aches, nausea, and dizziness. V/S:T:98.8, P:57, RR:12, SPO2:99, BP:108/64.
[2017-10-14] MEDS ORDERED: PHENOBARBITAL 32.4 MG TABLET PO SCH ×2 (20:45→21:00)
[2017-10-14] MEDS: MIRTAZAPINE 15 MG TABLET PO SCH ×2 (20:46→20:57)
--- NOTE | 2017-10-14 20:59 | NUR ---
MEDICATION NON-ADMINISTRATION At 1920 pt was notified of all medications he was schedule to take for 2100 medication pass. They included Remeron 30mg, Seroquel 150mg, vALIUM 10MG, and Subutex 2mg. Pt requested to take all medications @ 1999 and to wait for 2199 to take the Seroquel. I acknowledged him. During Medication administration pt took all the medications, but as he was taking the Remeron he asked what it was. I identified the medication as Remeron and he spit out the 2 pills and said he didn't want to take them. He said he came in with a bottle of Remeron, but that he preferred the Seroquel. I verified w/ the pt that he didn't want to take them. Pt said "yes". Medication was wasted.
[2017-10-14] MEDS ORDERED: Medication Not On Formulary EA (Mirtazapine 30 MG) PO SCH (21:00)
[2017-10-14] MEDS ORDERED: Medication Not On Formulary EA (Quetiapine Fumarate (Seroquel) 50 MG) PO SCH (21:00)
[2017-10-14] MEDS ORDERED: QUETIAPINE FUMARATE 100 MG TABLET PO SCH ×2 (21:00)
[2017-10-14] MEDS ORDERED: QUETIAPINE FUMARATE 25 MG TABLET PO SCH (21:00)
[2017-10-14] MEDS ORDERED: PHENOBARBITAL 32.4 MG TABLET ONE (22:25)
--- NOTE | 2017-10-14 22:41 | NUR ---
MEDICATION ADMINISTRATION Pt declined to take the full amount of Seroquel 150mg. Pt only wanted to take 50mg. Pt stated if he takes a higher dose and gets used to it when he doesn't have that amount he won't be able to fall asleep. Remaining 100mg was wasted. Addendum: 10/16/17 at 0349 by SPENCER DIAZ RN Correction: In the process of administering pt's medications pt refused to take the full amount of Seroquel (150mg). Pt's original Seroquel order was for 50mg. Pt then requested to change order to 150mg. The request was granted by . During time of current medication administration pt agreed to take the 150mg. However, when administering the 150mg pt changed his mind and put the half pill (50mg) in his mouth and spit back in the medication cup the full pill (100). I asked the pt why he did that and he responded with the previous stated comment. Pt also stated "I changed my mind and I dont want to take it anymore.I don't want to get used to it". Pt was educated on risk and benefits of taking medications as prescribed. made aware with no new orders.
[2017-10-15 00:01] VITALS: BP 100/58
--- NOTE | 2017-10-15 00:02 | NUR ---
CIWA AND COWS ASSESSMENT CIWA 13 and COWS 13. Pt continues to present w/ anxiety, agitation, clammy skin, body aches, and headache. V/S: T:98.8, P:77, RR:12, SPO2:98, BP:100/58.
--- NOTE | 2017-10-15 04:02 | NUR ---
CIWA AND COWS DEFERRED. V/S REFUSED Pt is in bed w/ his eyes closed. Pt's respirations are unlabored and even.
--- NOTE | 2017-10-15 07:14 | NUR ---
END OF SHIFT NOTE Endorsed pt to oncoming nurse. Pt is a 37 y/o male A/O to person, place, time, and purpose. Pt was admitted for medically supervised withdrawal from Xanax, Phenobarbital, and Subutex. Pt also a h/o Cocaine and Methamphetamine substance use. Pt has been presenting w/ anxiety, agitation, emotional volatility, flat affect, tremors, sweats, chills, body aches, nausea, and dizziness. Pt is focused on medications and is intrusive about them. Pt rcvd no PRN medications during current shift. Pts fluid intake was 500ml and he voided 3 times. Pt slept for 4.5hrs. Last CIWA 13 and COWS 11 @ 0000. Call light is within reach.
--- NOTE | 2017-10-15 07:30 | NUR ---
Start of Shift Biomass Plant Technician received report on 37 year old male admitted to [facility] on 10/13/17 for medical management of Benzodiazepine, Opiate and Phenobarbital withdrawals. Pt endorses NKA, full code and regular diet. Pt endorses PMH to include Hepatitis and withdrawal related seizures. PPH of anxiety, Panic DO and insomnia. Pt is currently on a Valium and Subutex taper with last CIWA 13 and COWS 11, per NOC report. Pt with no PRN medications administered on NOC, per report. Biomass Plant Technician encounters pt at nurses station with pt requesting to have his scheduled medication administered at 0800. Pt is focused on medication and complains of nausea and chills and muscle spasms with aches. Pt is anxious, and irritable, easily agitated. Angry affect with depressed mood. Clear of thought and speech pattern. A/O x4 and able to make needs known. Bed in low position with wheels locked and side rails up x2. Will continue to monitor, support and encourage according to plan of care.
--- NOTE | 2017-10-15 08:00 | NUR ---
CIWA 15/COWS 14 Pt is restless, anxious, diaphoretic, tremulous and irritable, emotionally volatile. Pt with complaints of nausea, muscle aches and chills. Will continue to monitor. support and encourage according to plan of care.
[2017-10-15 08:06] LABS: HEPATITIS B SURFACE AG Negative (Negative)
[2017-10-15 08:20] VITALS: BP 120/76
[2017-10-15] MEDS: GABAPENTIN 300 MG CAPSULE PO SCH ×3 (08:35→17:51)
[2017-10-15] MEDS: DIAZEPAM 5 MG TABLET PO SCH ×4 (08:35→21:17)
[2017-10-15] MEDS: FOLIC ACID 1 MG TABLET PO SCH (08:35)
[2017-10-15] MEDS: MULTIVITAMINS,THERAPEUTIC TABLET PO SCH (08:35)
[2017-10-15] MEDS ORDERED: PHENOBARBITAL 32.4 MG TABLET PO SCH (09:00)
[2017-10-15] MEDS ORDERED: BUPRENORPHINE HCL 2 MG TAB.SUBL SL SCH (09:00)
[2017-10-15] MEDS ORDERED: PHENOBARBITAL 60 MG TABLET PO ONE (09:30)
[2017-10-15 12:00] VITALS: BP 113/66
--- NOTE | 2017-10-15 12:00 | NUR ---
CIWA 15/COWS 16 Pt is tremulous, diaphoretic, anxious and restless with complaints of body aches and stomach cramps and nausea. Pt is irritable wit hw flat affect and depressed and anxious mood. Will continue to monitor, support and encourage according to plan of care
[2017-10-15 16:30] VITALS: BP 94/62
--- NOTE | 2017-10-15 16:30 | NUR ---
CIWA 11/COWS 12 Pt is anxious and restless with complaints of muscle spasms, stomach cramps and chills. Pt is labile, irritabel and easily agitated. Will continue to monitor, support and encourage according to plan of care.
--- NOTE | 2017-10-15 19:00 | NUR ---
End of Shift Finance Broker provided report on 37 year old male admitted to [facility] on 10/13/17 for medical management of Benzodiazepine, Opiate and Phenobarbital withdrawals. Pt endorses NKA, full code and regular diet. Pt endorses PMH to include Hepatitis and withdrawal related seizures. PPH of anxiety, Panic DO and insomnia. Pt is currently on a Valium and Subutex taper with last CIWA 11 and COWS 12. Pt with no PRN medications administered. Pt has been irritable and easily agitated. Pt is focused on Subutex and the fact his 3 day taper has ended. Pt believes this is too soon and then threatens to leave. Pt has spoken to administration and voiced his concerns. Angry affect with depressed mood. Clear of thought and speech pattern. A/O x4 and able to make needs known. Bed in low position with wheels locked and side rails up x2.
--- NOTE | 2017-10-15 19:44 | NUR ---
START OF SHIFT NOTE Rcvd report from outgoing nurse. Pt is a 37y/o and A/O to person, place, time, and purpose. Pt was admitted for medically supervised withdrawal from Benzodiazepines and Opiates. Pt also has a substance abuse h/o Cocaine, Methamphetamines, and Marijuana. Pt is presenting w/ anxiety, agitation, emotional volatility, restlessness, body aches, tremors, sweats, and chills. Pt is focused on medications and is extremely intrusive regarding them. Pt denies any S/I and H/I. Pt rcvd no PRN medications during previous shift. Last CIWA 11 and COWS 12. Call light is within reach. Pt will continue to be monitored and needs met.
[2017-10-15 20:00] VITALS: BP 110/74
--- NOTE | 2017-10-15 20:00 | NUR ---
CIWA AND COWS ASSESSMENT CIWA 13 and COWS 15. Pt is presenting w/ anxiety, agitation, emotional volatility, restlessness, body aches, tremors, sweats, and chills. V/S: T:98.4, P:75, RR:15, SPO2;98, BP:110/74.
[2017-10-15] MEDS ORDERED: BUPRENORPHINE HCL 2 MG TAB.SUBL SL ONE (21:00)
[2017-10-15] MEDS: MIRTAZAPINE 15 MG TABLET PO SCH (21:00)
[2017-10-15] MEDS: QUETIAPINE FUMARATE 100 MG TABLET PO SCH (22:53)
--- NOTE | 2017-10-16 | NUR ---
CIWA AND COWS DEFERRED. V/S REFUSED Pt is in bed w/ his eyes closed. Pt's respirations are unlabored and even.
--- NOTE | 2017-10-16 02:00 | NUR ---
CIWA AND COWS ASSESSMENT CIWA 10 and COWS 10. Pt presenting w/ sweats, abdominal cramping, tremors, anxiety, restlessness, yawning, and body aches. Pt just came back from smoking patio. Pt states they are going back to sleep. Will continue to monitor pt.
--- NOTE | 2017-10-16 04:00 | NUR ---
CIWA AND COWS DEFERRED. V/S REFUSED Pt is in bed w/ his eyes closed. Pt's respirations are unlabored and even.
--- NOTE | 2017-10-16 07:28 | NUR ---
END OF SHIFT NOTE Endorsed pt to oncoming nurse. Pt is a 37y/o and A/O to person, place, time, and purpose. Pt was admitted for medically supervised withdrawal from Benzodiazepines and Opiates. Pt also has a substance abuse h/o Cocaine, Methamphetamines, and Marijuana. Pt continued to present w/ anxiety, agitation, emotional volatility, restlessness, body aches, tremors, sweats, and chills. Pt is focused on medications and is extremely intrusive regarding them. Pt rcvd no PRN medications during previous shift. Pts fluid intake was 700ml and he voided 1 time. Pt slept for 3.75hrs. Last CIWA 10 and COWS 10 @ 0200. Call light is within reach.
--- NOTE | 2017-10-16 07:30 | NUR ---
START OF SHIFT PT 37 y/o male admitted for benzo and opiate withdrawal. Received in room on bed with eyes closed resting. Alert and oriented to name, place, and time. Perrla. Skin warm and moist to touch. Respirations even and unlabored. Bilateral hand tremors noted. Appears disheveled and unkempt. Empty drink bottles and clothes scattered throughout the room. Anxious and restless. Irritable. Pressured speech and hyperverbal. Encouraged to maintain hygiene. It was reported that pt slept for 4 hours last night. Last atok=243 ciwa= 10 reported at 0200. Bed on lowest position with side rails x2 up for safety. Call light within reach.
[2017-10-16 08:00] VITALS: BP 113/68
--- NOTE | 2017-10-16 08:00 | NUR ---
COWS CIWA ASSESSMENT cows=13 ciwa=10. Bilateral hand tremors noted. Anxious and restless, not able to sit/ lay still. Hyperverbal with pressured speech noted. Complaints of generalized discomfort. Irritable.
[2017-10-16] MEDS: MULTIVITAMINS,THERAPEUTIC TABLET PO SCH (08:19)
[2017-10-16] MEDS: GABAPENTIN 300 MG CAPSULE PO SCH ×3 (08:19→16:38)
[2017-10-16] MEDS: DIAZEPAM 5 MG TABLET PO SCH ×3 (08:19→20:45)
[2017-10-16] MEDS: FOLIC ACID 1 MG TABLET PO SCH (08:19)
[2017-10-16] MEDS ORDERED: BUPRENORPHINE HCL 2 MG TAB.SUBL SL SCH (09:00)
[2017-10-16] MEDS ORDERED: BUPRENORPHINE HCL 2 MG TAB.SUBL SL ONE (09:00)
[2017-10-16 12:00] VITALS: BP 126/65
--- NOTE | 2017-10-16 12:00 | NUR ---
COWS CIWA ASSESSMENT cows=12 ciwa=11. Bilateral hand tremors. Complaints of intermittent perspiration. Anxious and restless. Hyperverbal with pressured speech. Easily irritable. Generalized discomfort.
[2017-10-16 16:00] VITALS: BP 112/60
--- NOTE | 2017-10-16 18:35 | NUR ---
END OF SHIFT Pt 37 y/o male admitted for benzo and opiate withdrawal. Alert and oriented to name, place, and time. Perrla. Skin warm and moist to touch. Respirations even and unlabored. Bilateral hand tremors noted. Appears disheveled and unkempt. Clothes scattered throughout the room. Encouraged to maintain hygiene. Anxious and restless. Not able to sit still. Pressured speech noted. Generalized discomfort. Complaints of body aches throughout the day. Irritable. Isolative with minimal peer interaction and mostly in room today. Did not attend group activity today. Was seen by MD today. Medication compliant. Last cows=12 ciwa =11 @1600. Pt is on a 5 day valium taper and is on day 4. Pt also on a modified subutex taper and is on day 4. Bed on lowest position with side rails x2 up for safety. Call light within reach.
--- NOTE | 2017-10-16 19:30 | NUR ---
Start of shift note Received report from day shift Nurse. Patient is a 37 year old male admitted for Benzo/Opiate withdrawal. Patient is on Valium taper and modified Subutex taper. Patient did not require PRN medication. Last COWS 13 and CIWA 11. Patients room dirty, bed sheets dirty and cloths thrown on floor. Patient alert and oriented x 4. Respiration even and unlabored. Patient presents with flat affect, labile, blunt, guarded, anxious, restless, eye avoidant , restless legs, difficulty concentrating and generalized body aches. Safety measures in place. Call light in reach. Will continue to monitor.
[2017-10-16 20:00] VITALS: BP 131/66
--- NOTE | 2017-10-16 20:00 | NUR ---
COWS and CIWA assessment Patient presents with flat affect, labile, guarded, anxious, restless, eye avoidant , restless legs, difficulty concentrating and generalized body aches. COWS 11 and CIWA 11.
[2017-10-16] MEDS: IBUPROFEN 600 MG TABLET PO PRN (20:44)
--- NOTE | 2017-10-16 20:44 | NUR ---
PRN Motrin administration Patient c/o generalized body aches. Will monitor for effectiveness
[2017-10-16] MEDS: MIRTAZAPINE 15 MG TABLET PO SCH (21:00)
--- NOTE | 2017-10-16 21:00 | NUR ---
Refused Remeron Patient refused Remeron, per patient he does not need it . Explained risks/benefits.
--- NOTE | 2017-10-16 21:44 | NUR ---
PRN Motrin re-assessment Patient states Motrin helpful and effective. Pain is tolerable at this time.
[2017-10-16] MEDS: QUETIAPINE FUMARATE 100 MG TABLET PO SCH (22:02)
[2017-10-16] MEDS: MAGNESIUM HYDROXIDE 30 ML LIQUID UDC PO PRN (23:07)
--- NOTE | 2017-10-16 23:07 | NUR ---
PRN MOM administration Patient requests MOM due to unable to pass stool. Encourage fluids. Will monitor for effectiveness
[2017-10-17] VITALS: BP 128/82
--- NOTE | 2017-10-17 | NUR ---
COWS and CIWA assessment Patient presents with anxiety, restless, sweating, chills, restless legs and difficulty sleeping . COWS 10 and CIWA 9.
--- NOTE | 2017-10-17 01:20 | NUR ---
COWS and CIWA assessment Patient anxious, restless, panic feeling, per Patient he wants t go to smoke to relieve his anxiety and will to sleep. COWS 10 and CIWA 9. Relaxation technique provided. Will continue to monitor
--- NOTE | 2017-10-17 04:00 | NUR ---
COWS and CIWA deferred Patient lying in bed with eyes closed. Respiration even and unlabored. VS refused. Will continue to monitor
--- NOTE | 2017-10-17 07:18 | NUR ---
End of shift note Patient slept 5 hours. Fluid intake 1,000 ml. Voided x 3 . No BM . Patient continue on Valium taper and modified Subutex taper, tolerated well and no adverse reaction. Patient presented with flat affect, labile, guarded, anxious, restless, eye avoidant , restless legs, difficulty concentrating and generalized body aches. PRN Motrin given, effective and MOM , will endorse to next shift Nurse for effectiveness. No BM on shift. Patient was anxious and had difficulty sleeping. Patient went down to smoke at 0120, relaxation technique provided then he went back to his room and went to sleep. Patient had total of 5 hours of sleep. Safety measures in place. Call light in reach. Will continue to monitor. Last COWS 10 and CIWA 9.
--- NOTE | 2017-10-17 07:24 | NUR ---
Start Of Shift: Patient is a 37 yr old male who was admitted to [facility] on 10/13/17 for a medically supervised withdrawal from Benzodiazepines ( Xanax), Opiates ( Subutex, Phenobarbital ), he has been placed on a 5 day Valium taper and modified Subutex taper and this is day 5. PRN Motrin and MOM were given on PM shift, he slept for 5 + hours and last COWS 10 and CIWA 9 @ 0100.Currently he is asleep in bed at this time, breathing even and unlabored, side rails up x2.Continue to follow MD plan of care and offer support as needed.
[2017-10-17 08:00] VITALS: BP 114/72
--- NOTE | 2017-10-17 08:00 | NUR ---
COWS 9 CIWA 12 Withdrawal symptoms present as generalized body aches, stuffy nose, irritability, headache, constipation, restlessness and difficulty thinking clearly. Motrin given for pain along with scheduled Valium and Subutex.
[2017-10-17] MEDS: FOLIC ACID 1 MG TABLET PO SCH (08:03)
[2017-10-17] MEDS: MULTIVITAMINS,THERAPEUTIC TABLET PO SCH (08:03)
[2017-10-17] MEDS: IBUPROFEN 600 MG TABLET PO PRN (08:03)
[2017-10-17] MEDS: DIAZEPAM 5 MG TABLET PO SCH ×2 (08:03→21:06)
[2017-10-17] MEDS: GABAPENTIN 300 MG CAPSULE PO SCH ×3 (08:03→16:41)
--- NOTE | 2017-10-17 08:03 | NUR ---
PRN Motrin Motrin 600 MG PO given for R/O headache and lower leg pain 08/15. Will Reassess
[2017-10-17] MEDS ORDERED: BUPRENORPHINE HCL 2 MG TAB.SUBL SL ONE (09:00)
--- NOTE | 2017-10-17 09:03 | NUR ---
PRN Motrin Reassess Patient states Motrin 600 MG PO effective, pain level is 3/10 will continue to monitor
[2017-10-17 12:00] VITALS: BP 110/71
--- NOTE | 2017-10-17 12:00 | NUR ---
COWS 12 CIWA 14 Withdrawal symptoms present as increased heart rate ( 103), increased agitation, diaphoresis, feeling of inner turmoil, yawning and restlessness. PRN medications offered but patient states " None of those will help with these symptoms" Scheduled 1200 MG Gabapentin given
--- NOTE | 2017-10-17 13:22 | NUR ---
Client was prompted to attend twice daily group therapy sessions.
--- NOTE | 2017-10-17 14:40 | NUR ---
PRN Miralax Miralax 17G given for complaints of constipation, will reassess
--- NOTE | 2017-10-17 15:40 | NUR ---
SORIN Valdez reassess No BM yet, will continue to monitor.
[2017-10-17 16:00] VITALS: BP 125/72
--- NOTE | 2017-10-17 16:00 | NUR ---
COWS 10 CIWA 13 Withdrawal symptoms present as generalized body aches, runny nose, irritability, constipation, restlessness and difficulty thinking clearly. Miralax given for complaints of constipation.
--- NOTE | 2017-10-17 18:45 | NUR ---
End Of Shift: Patient is a 37 yr old male who was admitted to [facility] on 10/13/17 for a medically supervised withdrawal from Benzodiazepines ( Xanax) , Opiates ( Subutex ) and Barbiturates ( Phenobarbital). He is on a 5 day Valium and modified Subutex taper and this is day 5. He complains of an inner turmoil that cannot be treated by medications, encouraged deep breathing and meditation if possible. He voices concerns of not being ready to leave [facility] " I'm not properly detoxed". He presents as anxious, irritable, restless, hypervigilant, generalized body aches, constipation and difficulty thinking clearly. PRN Motrin and Miralax were given on this shift, last COWS 10 and CIWA 13 @ 1600 . He has attended groups today and is interacting appropriately with his peers and staff. He had a fluid intake of 2750ML,4 Voids and 0 BM. Continue to follow MD plan of care and offer support as needed. Endorsed to overnight cashier.
--- NOTE | 2017-10-17 19:51 | NUR ---
START OF SHIFT NOTE Rcvd report from outgoing nurse. Pt is a 37 y/o male A/O to person, place, time, and purpose. Pt was admitted for medically supervised withdrawal from Opiates and Benzodiazepines. Pt has been presenting w/ anxiety. agitation, emotional volatility. Pt has been c/o body aches, sweats, and constipation. Pt has been extremely focused on medications and is very intrusive regarding them. Pt denies S/I and H/I. PRN Motrin and Miralax were given and noted partially effective. Last CIWA 13 and COWS 10 @ 1600. Call light is within reach. Pt will continue to be monitored and needs met.
--- NOTE | 2017-10-17 20:00 | NUR ---
CIWA AND COWS ASSESSMENT CIWA 12 and COWS 11. Pt presenting w/ anxiety, agitation, emotional volatility, body aches, sweats, and constipation. V/S: T:98.2, P:79, RR:17, SPO2:97, BP:108/59.
[2017-10-17 20:02] VITALS: BP 108/59
[2017-10-17] MEDS: MIRTAZAPINE 15 MG TABLET PO SCH (21:00)
[2017-10-17] MEDS: MAGNESIUM HYDROXIDE 30 ML LIQUID UDC PO PRN (21:05)
--- NOTE | 2017-10-17 21:05 | NUR ---
PRN CLONIDINE AND MILK OF MAGNESIA ADMINISTRATION Clonidine and Milk of Mag given for anxiety and constipation. Will reassess pt in 1 hr.
[2017-10-17] MEDS: QUETIAPINE FUMARATE 100 MG TABLET PO SCH (21:06)
--- NOTE | 2017-10-17 22:05 | NUR ---
PRN CLONIDINE AND MILK OF MAGNESIA REASSESSMENT Pt states partial relief of anxiety, however, he has not had a BM yet. Advised pt to drink prune juice and gave him two container. Pt drank both of them. Will continue to monitor pt.
--- NOTE | 2017-10-18 00:01 | NUR ---
CIWA AND COWS DEFERRED Pt is in bed w/ his eyes closed. Pt's respirations are unlabored and even.
--- NOTE | 2017-10-18 02:45 | NUR ---
CIWA AND COWS ASSESSMENT CIWA 10 and COWS 8. Pt presenting w/ anxiety, agitation, restlessness, body aches, sweats, and tremors. Pt states they can't stay asleep and want to go donw for a smoke. Went over education again regarding relaxation breathing, a quiet environment, and imagery. Pt was dismissive. Will continue to monitor pt.
--- NOTE | 2017-10-18 04:01 | NUR ---
CIWA AND COWS DEFERRED Pt is in bed w/ his eyes closed. Pt's respirations are unlabored and even.
--- NOTE | 2017-10-18 07:05 | NUR ---
END OF SHIFT NOTE Endorsed pt to oncoming nurse. Pt is a 37 y/o male A/O to person, place, time, and purpose. Pt was admitted for medically supervised withdrawal from Opiates and Benzodiazepines. Pt continues to present w/ anxiety, agitation, emotional volatility. Pt has been c/o body aches, sweats, and constipation. Pt has been extremely focused on medications and is upset that his taper has ended 48 prior to discharge. PRN Clondine and Milk of Mag given for anxiety and constipation, noted partially effective. Pts fluid intake was 2000ml and he voided 3 times. Pt slept for 7hrs. Last CIWA 10 and COWS 8 @ 0245. Call light is within reach.
--- NOTE | 2017-10-18 07:30 | NUR ---
Patient is a 37 yr old male who was admitted to [facility] on 10/13/17 for a medically supervised withdrawal from Benzodiazepines ( Xanax), Opiates ( Subutex, Phenobarbital ), he has completed a 5 day Valium taper and modified Subutex taper. PRN MoM and Clonidine were given on PM shift, he slept for 7 hours and last COWS 8 and CIWA 10 @ 0245.Currently he is awake and asking to go to the smoking patio.Continue to follow MD plan of care and offer support as needed.
[2017-10-18 08:00] VITALS: BP 125/69
--- NOTE | 2017-10-18 08:00 | NUR ---
COWS 8 CIWA 9 Patients withdrawal symptoms consist of irritability,body aches, restlessness, stuffy nose, hypervigilance, increased startle response and diaphoresis. Scheduled Gabapentin 1200 MG PO given , no PRN medications requested.
[2017-10-18] MEDS: GABAPENTIN 300 MG CAPSULE PO SCH ×3 (08:36→16:35)
[2017-10-18] MEDS: MULTIVITAMINS,THERAPEUTIC TABLET PO SCH (08:46)
[2017-10-18] MEDS: FOLIC ACID 1 MG TABLET PO SCH (08:46)
[2017-10-18 12:00] VITALS: BP 108/51
--- NOTE | 2017-10-18 12:00 | NUR ---
COWS 8 CIWA 10 Patients withdrawal symptoms consist of irritability, agitation, body aches, restlessness, stuffy nose, hypervigilance, increased startle response. Scheduled Gabapentin 1200 MG PO given , no PRN medications requested.
--- NOTE | 2017-10-18 13:33 | NUR ---
Therapist prompted client to attend twice daily group therapy sessions.
[2017-10-18] MEDS ORDERED: IBUP-1955 PO (14:20)
[2017-10-18 16:00] VITALS: BP 103/42
--- NOTE | 2017-10-18 16:24 | NUR ---
COWS 7 CIWA 11 Withdrawal symptoms present as irritability, emotional volatility, restlessness, constipation, generalized body aches and emotional amplitude.
[2017-10-18] MEDS: IBUPROFEN 600 MG TABLET PO PRN (16:35)
--- NOTE | 2017-10-18 16:35 | NUR ---
PRN Motrin Motrin 600 MG PO given for headache, 07/15 will reassess
--- NOTE | 2017-10-18 17:35 | NUR ---
PRN Reassess Patient states Motrin 600mg PO effective for pain, continue to monitor
--- NOTE | 2017-10-18 18:38 | NUR ---
End Of Shift: Patient is a 37 yr old male who was admitted to [facility] on 10/13/17 for a medically supervised withdrawal from Benzodiazepines ( Xanax) , Opiates ( Subutex ) and Barbiturates ( Phenobarbital). He has completed a 5 day Valium and modified Subutex taper and will be discharged tomorrow 10/19/17. He presents as anxious, irritable, restless, emotionally volatile, hypervigilant, generalized body aches, constipation and difficulty thinking clearly, PRN medications given on this shift : Motrin 600 MG PO, last COWS 7 and CIWA 11 @ 1600 . He has attended groups today and is interacting appropriately with his peers and staff. He had a fluid intake of 1500 ML,5 Voids and 1 BM. Continue to follow MD plan of care and offer support as needed. Endorsed to night coordinator.
--- NOTE | 2017-10-18 19:30 | NUR ---
Start of Shift Patient Received. Patient has completed a modified Valium taper and modified Subutex taper. Patient has been compliant with group a social activities. He received PRN Motrin with medication noted to be effective. Last noted COWS 7 and CIWA 11. All needs attended to promptly. Will continue with plan of care as ordered.
[2017-10-18 20:43] VITALS: BP 126/69
[2017-10-18] MEDS: MIRTAZAPINE 15 MG TABLET PO SCH (21:00)
[2017-10-18] MEDS: QUETIAPINE FUMARATE 100 MG TABLET PO SCH (21:20)
--- NOTE | 2017-10-19 00:14 | NUR ---
Vitals Refused Patient is noted in bed eyes closed. Patient noted to refuse vitals. Breathing even and non labored. CIWA and COWS not able to be completed as per order. Will continue to monitor. Addendum: 10/19/17 at 0020 by ANCA CASSIDY LVN Amended: Links added.
--- NOTE | 2017-10-19 04:16 | NUR ---
Vitals Refused Patient is noted in bed eyes closed. Patient noted to refuse vitals. Breathing even and non labored. Respirations noted to be 16. CIWA and COWS not able to be completed as per order. Will continue to monitor.
--- NOTE | 2017-10-19 07:09 | NUR ---
End of Shift Patient is noted in bed with eyes closed. Breathing even and non labored. Patient has completed a modified Valium taper and modified Subutex taper. Patient noted to refuse Remeron and was compliant with taking Seroquel 50mg with no complications. Last noted COWS 7 and CIWA 12. Patient noted to sleep a total of 6 hours. All needs attended to promptly. Will continue with plan of care as ordered.
--- NOTE | 2017-10-19 07:30 | NUR ---
Start of Shift Cost Clerk received report on 37 year old male admitted to [facility] on 10/13/17 for medical management of Benzodiazepine, Opiate and Phenobarbital withdrawals, with scheduled discharge set for this am. Pt endorses NKA, full code and regular diet. Pt endorses PMH to include Hepatitis and withdrawal related seizures. PPH of anxiety, Panic DO and insomnia. Pt has completed a Valium and Subutex taper with last CIWA 12 and COWS 7, per NOC report. Pt with no PRN medications administered on NOC, per report. Cost Clerk encounters pt in pts room with pt resting with eyes closed, even and unlabored respirations noted. Bed in low position with wheels locked and side rails up. Will continue to monitor, support and encourage according to plan of care.
--- NOTE | 2017-10-19 08:00 | NUR ---
CIWA 6/COWS 6 Pt is anxious and restless. Anxious about discharge, complains of muscle spasms and stomach cramps. Will continue to monitor, support and encourage according to plan of care
[2017-10-19 08:42] VITALS: BP 111/45
[2017-10-19] MEDS: FOLIC ACID 1 MG TABLET PO SCH (08:52)
[2017-10-19] MEDS: MULTIVITAMINS,THERAPEUTIC TABLET PO SCH (08:52)
[2017-10-19] MEDS: GABAPENTIN 300 MG CAPSULE PO SCH (08:52)
--- NOTE | 2017-10-19 09:36 | NUR ---
Discharge Assessment Pt is A/O x4 and makes his needs known, demanding and entitled. Pt is attention seeking and dramatic. Pt is irritable, easily agitated and rude to staff. Pt blames others for his dispositions and lacks insight into condition. Pt is cooperative with discharge process and denies SI/HI or A/VH at this time. Pt with complaints of nausea, stomach cramps and is anxious and restless. Last COWS 6 and CIWA 6. Pt was educated on importance of continued sobriety and medication compliance. Pt educated on name, route, dose, and indication of medications prescribed on discharge. Pt is provided with prescriptions on discharge. Pt is educated on discharge packet, including diagnosis, lab values and educational material. Pt denies any further comments, questions or concerns. Pt is stable for discharge. Pt is escorted to main lobby where pt is discharged.
== END 2017-10-19 09:36 | disposition home or self-care (01) | DRG 895 ==
LOC: SRC 09:48
PROVIDERS: ADMIT Family Medicine Addiction Medicine; ATTEND Family Medicine Addiction Medicine
PROC: HZ2ZZZZ Detoxification Services for Substance Abuse Treatment (ICD-10-PCS; principal; 2017-10-13)
PROC: HZ41ZZZ Group Counseling for Substance Abuse Treatment, Behavioral (ICD-10-PCS; 2017-10-16)
DX: F13.230 Sedative, hypnotic or anxiolytic dependence with withdrawal, uncomplicated (principal); F33.1 Major depressive disorder, recurrent, moderate; F11.23 Opioid dependence with withdrawal; G47.00 Insomnia, unspecified; F17.210 Nicotine dependence, cigarettes, uncomplicated; Z86.74 Personal history of sudden cardiac arrest; Z91.89 Other specified personal risk factors, not elsewhere classified; F41.0 Panic disorder [episodic paroxysmal anxiety]; B19.20 Unspecified viral hepatitis C without hepatic coma
CPT/HCPCS: 36415; 70030-TC; 80307; 80324; 80346; 80349; 80353; 83735; 85025; 86580; 86592; 86705; 86803; 87340; 87806; A4663; G0480; J8499; Q0162

== ENCOUNTER 2017-11-28 09:17 | Inpatient (IN) | payer BC, OTHER ==
[~2017-11-28] VITALS: Ht 185.4 cm; Wt 93.0 kg
[~2017-11-28 09:17] MED LIST changes: -BACL10TA PO; +GABA600T2 PO; -GABA800T2 PO; +IBUP-1955 PO; -METH-406 PO; -OXCA150T5 PO; -QUET200T PO; +QUET50TA PO
--- NOTE | 2017-11-28 09:46 | NUR ---
DR CASTRO EVALUATED THE PT. PT IS IN ROOM #2B.
[2017-11-28] MEDS ORDERED: ACETAMINOPHEN ES 500 MG TABLET PO ONE (10:00)
[2017-11-28] MEDS ORDERED: KETOROLAC TROMETHAMINE 30 MG INJ IVP ONE (10:00)
[2017-11-28] MEDS ORDERED: IV NORMAL SALINE 1000 ML BAG IV ONE (10:00)
[2017-11-28] MEDS ORDERED: PIPERACILLIN SODIUM/TAZOBACTAM 3.375 G in IV DEXTROSE 5% 50 ML IV ONE (10:00)
[2017-11-28] MEDS ORDERED: VANCOMYCIN IV 1,000 MG in IV DEXTROSE 5% 250 ML IV ONE (10:00)
[2017-11-28] MEDS ORDERED: LORAZEPAM 2 MG/1 ML VIAL IV ONE ×2 (10:00→11:30)
[2017-11-28] MEDS ORDERED: VANCOMYCIN IV 200 ML ONE (10:02)
[2017-11-28] MEDS ORDERED: KETOROLAC TROMETHAMINE 30 MG INJ ONE (10:03)
[2017-11-28] MEDS ORDERED: CLON2TAB PO (10:08)
[2017-11-28] MEDS ORDERED: ACETAMINOPHEN ES 500 MG TABLET ONE (10:31)
[2017-11-28] MEDS ORDERED: LORAZEPAM 2 MG/1 ML VIAL ONE ×2 (10:32→11:29)
[2017-11-28] MEDS ORDERED: PIPERACILLIN/TAZOBACTAM/D5W 50 ML IV ONE (10:32)
[2017-11-28 10:38] LABS: CREATININE 1.1 mg/dL (0.6-1.3)
[2017-11-28 10:43] LABS: BILIRUBIN,DIRECT 0.2 mg/dL (0.0-0.2); BILIRUBIN,TOTAL 1.1 mg/dL (0.2-1.0); TOTAL PROTEIN, SERUM 7.4 g/dL (6.4-8.2)
[2017-11-28] MEDS ORDERED: IV NORMAL SALINE 250 ML IV ONE (12:01)
[2017-11-28] MEDS ORDERED: NORMAL SALINE FLUSH 10 ML DISP.SYRIN ONE (12:01)
[2017-11-28] MEDS ORDERED: SWABABLE VALVE TRANSFER SET EA MC ONE (12:01)
[2017-11-28] MEDS ORDERED: IOHEXOL 300MG/ML 100 ML INFUS..BTL ONE (12:01)
[2017-11-28] MEDS ORDERED: ALPRAZOLAM 0.25 MG TABLET PO ONE (14:30)
[2017-11-28] MEDS ORDERED: ALPRAZOLAM 0.5 MG TABLET ONE (14:46)
[2017-11-28] MEDS ORDERED: ONDANSETRON 4 MG/2 ML VIAL IV PRN (15:15)
[2017-11-28] MEDS ORDERED: Z GUARD REMEDY PASTE 57 GM TUBE TOP PRN (15:15)
[2017-11-28] MEDS ORDERED: MAGNESIUM HYDROXIDE 30 ML LIQUID UDC PO PRN (15:15)
[2017-11-28] MEDS ORDERED: ZOLPIDEM 5 MG TABLET PO PRN (15:15)
[2017-11-28] MEDS ORDERED: MORPHINE SULFATE 2 MG/1 ML DISP.SYRIN IV PRN (15:15)
[2017-11-28] MEDS ORDERED: HYDROCODONE/APAP 10-325 MG TABLET PO PRN (15:15)
--- NOTE | 2017-11-28 15:25 | NUR ---
Clinical pharmacy note-Vancomycin dosing per pharmacy Subjective: To start Vancomycin dosing on this patient for suspected infection(S/P his arthroplasty) Objective: BUN 17 Scr 0.8 WBC 7.2 Temp 98.1 Assessment/Plan: Will start Vancomycin 1750mg IV every 12hrs(first dose given today at 1400) and draw trough by 4th dose(not ordered yet) for expected trough around 15.84. Will monitor daily. Clinical pharmacy note-Vancomycin dosing per pharmacy Subjective: To start Vancomycin dosing on this 37 yo male patient for suspected infection- abscess Objective: BUN 9 Scr 1.1 Temp 100.6 Assessment/Plan: Patient received vanco 1000 mg IVPB x1 today in ED at 1030am. Will start Vancomycin 1500mg IV every 11 hrs for predicted vanco trough level of 15 mcg/ml at steady state. First dose today at 2000) and draw trough by 4th dose(not ordered yet). Will monitor renal function & adjust the dose if needed. Will monitor daily.
--- NOTE | 2017-11-28 15:40 | NUR ---
REPORT WAS GIVEN TO RN M/S. PT WAS TRANSFERED TO ROOM #214.
[2017-11-28] MEDS ORDERED: MORPHINE SULFATE 4 MG/1 ML DISP.SYRIN IV PRN (15:45)
[2017-11-28 16:45] VITALS: BP 108/88
[2017-11-28] MEDS ORDERED: GABAPENTIN 400 MG CAPSULE PO SCH (17:00)
[2017-11-28] MEDS: CLONAZEPAM 0.5 MG TABLET PO SCH (18:30)
[2017-11-28 19:00] VITALS: BP 96/46
[2017-11-28] MEDS: VANCOMYCIN IV 1,500 MG in IV DEXTROSE 5% 500 ML IV SCH (19:42)
[2017-11-28] MEDS: IV NS 1000 ML 1,000 ML IV PRN (19:42)
--- NOTE | 2017-11-28 19:45 | NUR ---
RECEIVED PATIENT ASLEEP IN BED. EASILY AROUSABLE, BUT APPEARS VERY DROWSY AND FALLS BACK TO SLEEP. BLOOD PRESSURE 96/46. ALL OTHER VSS. IVF STARTED ORDERED PER RN. INFUSING WELL TO RIGHT JUGULAR #20 GAUGE. NO RESP. DISTRESS NOTED. ON RA SATING 97%. DENIES PAIN AT THIS TIME. NO FACIAL GRIMACE NOTED. CALL LIGHT IN REACH. ALL NEEDS ATTENDED. WILL CONTINUE TO MONITOR AND ASSESS.
[2017-11-28] MEDS: ACETAMINOPHEN 325 MG TABLET PO PRN (20:33)
[2017-11-28] MEDS: QUETIAPINE FUMARATE 25 MG TABLET PO SCH ×2 (21:00→21:19)
[2017-11-28 21:10] VITALS: BP 105/73
[2017-11-28] MEDS: NICOTINE 21 MG/24HR PATCH TD SCH (21:19)
[2017-11-28] MEDS: GABAPENTIN 300 MG CAPSULE PO SCH (21:19)
--- NOTE | 2017-11-28 22:00 | NUR ---
PATIENT ASLEEP IN BED. VSS. NO RESP. DISTRESS NOTED. IVF INFUSING WELL ORDERED. ALL NEEDS ATTENDED.
[2017-11-29 04:00] VITALS: BP 99/55
[2017-11-29] MEDS: VANCOMYCIN IV 1,500 MG in IV DEXTROSE 5% 500 ML IV SCH ×2 (05:43→18:00)
[2017-11-29] MEDS: ACETAMINOPHEN 325 MG TABLET PO PRN ×2 (05:46→20:24)
[2017-11-29] MEDS: PANTOPRAZOLE SODIUM 40 MG TABLET.DR PO SCH (06:11)
[2017-11-29] MEDS: GABAPENTIN 300 MG CAPSULE PO SCH ×3 (06:11→21:08)
--- NOTE | 2017-11-29 06:28 | NUR ---
PATIENT AWAKE IN BED. SLEPT AT INTERVALS. IVF INFUSING WELL TO RIGHT JUGULAR. CALL LIGHT IN REACH. ALL NEEDS ATTENDED. WILL CONTINUE TO MONITOR AND ASSESS.
--- NOTE | 2017-11-29 06:33 | NUR ---
PATIENT REFUSED AM LAB DRAWS AT THIS TIME.
[2017-11-29] MEDS: CLONAZEPAM 0.5 MG TABLET PO SCH ×2 (08:44→16:09)
[2017-11-29] MEDS: LORAZEPAM 2 MG/1 ML VIAL IV PRN ×2 (09:42→16:09)
[2017-11-29 10:04] LABS: BASOPHILS # (AUTO) 0.1 K/uL (0.0-8.0); BASOPHILS % (AUTO) 1.4 % (0.0-2.0); EOSINOPHILS # (AUTO) 0.2 K/uL (0.0-0.7); HEMATOCRIT 33.9 % (36.7-47.1); HEMOGLOBIN 10.9 g/dL (12.5-16.3); LYMPHOCYTES # (AUTO) 1.1 K/uL (20.0-40.0); LYMPHOCYTES % (AUTO) 14.3 % (20.5-51.5); MEAN CORPUSCULAR HEMOGLOBIN 20.9 uug (23.8-33.4); MEAN CORPUSCULAR HGB CONC 32 g/dL (32.5-36.3); MEAN CORPUSCULAR VOLUME 64.8 fL (73.0-96.2); MONOCYTES # (AUTO) 0.8 K/uL (2.0-10.0); MONOCYTES % (AUTO) 10.3 % (0.0-11.0); NEUTROPHILS # (AUTO) 5.7 K/uL (1.8-8.9); PLATELET COUNT (AUTO) 202 K/uL (152-348); RED BLOOD CELL COUNT(AUTO) 5.23 MIL/uL (4.06-5.63)
[2017-11-29 10:14] LABS: CREATININE 1.2 mg/dL (0.6-1.3); MAGNESIUM 1.9 mg/dL (1.8-2.4); PHOSPHOROUS 3.3 mg/dL (2.5-4.9); POTASSIUM 3.4 mmol/L (3.5-5.1)
[2017-11-29 10:36] LABS: LYMPHOCYTES % (MANUAL) 16 % (20-40); NEUTROPHILS % (MANUAL) 72 % (42-75)
[2017-11-29 10:37] LABS: EOSINOPHILS % (MANUAL) 5 % (0-8); MONOCYTES % (MANUAL) 7 % (2-10)
[2017-11-29 11:16] LABS: *BILIRUBIN,URIN NEGATIVE (NEGATIVE); *BLOOD, URINE NEGATIVE (NEGATIVE); *CLARITY,URINE CLOUDY (CLEAR); *COLOR,URINE DARK YELLOW (YELLOW); *KETONES,URINE NEGATIVE (NEGATIVE); *PROTEIN,URINE NEGATIVE (NEGATIVE); LEUKOCYTE ESTERASE ,URINE NEGATIVE (NEGATIVE); NITRITE, URINE NEGATIVE (NEGATIVE); PH,URINE 6.5 (5.0-8.0); UGLUCOSE NEGATIVE (NEGATIVE)
[2017-11-29 11:27] LABS: BACTERIA,URINE NONE SEEN /HPF (NONE SEEN); RBC,URINE NONE SEEN /HPF (0-3); SQUAMOUS EPITHELIAL CELL,UR NONE SEEN /HPF (NONE SEEN); WBC,URINE NONE SEEN /HPF (0-3)
[2017-11-29 11:28] LABS: URINE AMORPHOUS URATE MANY /HPF
[2017-11-29 11:29] LABS: *AMPHETAMINE, URINE NEGATIVE (NEGATIVE); *BARBITURATE, URINE NEGATIVE (NEGATIVE); *CANNABINOID, URINE POSITIVE (NEGATIVE); *COCCAINE, URINE NEGATIVE (NEGATIVE); *OPIATE, URINE NEGATIVE (NEGATIVE); *PHENCYCLIDINE SCREEN,URINE NEGATIVE (NEGATIVE)
[2017-11-29 11:38] VITALS: BP 98/53
[2017-11-29] MEDS: HYDROCODONE/APAP 10-325 MG TABLET PO PRN (12:36)
--- NOTE | 2017-11-29 14:36 | NUR ---
Clinical Pharmacy Note: Vancomycin Pharmacy to Dose Subjective: To continue Vancomycin dosing on this 37 yo male patient for suspected infection- abscess Objective: BUN 6 Scr 1.2 Temp 99 trough pending tomorrow early am at 0430 Assessment/Plan: Will continue Vancomycin 1500mg IV every 11 hrs for predicted vanco trough level of 15 mcg/ml at steady state and draw trough by 4th dose(due 11/30 @0430). Will check level tomorrow am and adjust as needed. RN endorse the hold dose if trough >20. Will follow
[2017-11-29 15:53] VITALS: BP 118/83
--- NOTE | 2017-11-29 18:00 | NUR ---
MIDLINE PROCEDURE IN PROCESS.
--- NOTE | 2017-11-29 18:32 | NUR ---
MIDLINE PROCEDURE UNSUCCESSFULL. PATIENT EXTREMELY ANXIOUS, INSISTING TO GO OUT OF THE UNIT TO SMOKE. PATIENT REPEATEDLY STATING "I HAVE PANIC DISORDER, I HAVE PTSD".
--- NOTE | 2017-11-29 18:44 | NUR ---
UNABLE TO ADMINISTER VANCO IV PENDING PATIENT'S IV ACCESS. PHARMACY INFORMED. WILL ENDORSE TO DOWELER RN.
--- NOTE | 2017-11-29 19:10 | NUR ---
DURING SHIFT CHANGE REPORT. IT WAS ENDORSED THAT MID-LINE INSERTION WAS UNSUCCESSFUL AND IT WAS ATTEMPTED [address] OUT [address] TRUONG TO INFORM HIM THAT THERE IS NO IV ACCESS FOR IVF AND VANCOMYCIN. MD AWARE. WILL WAIT UNTIL PATIENT HAS MID-LINE ACCESS. RECEIVED OK FOR MORPHINE ROUTE TO BE CHANGED TO IM. ALL NEEDS ATTENDED. SPACE AND MISSILE DEFENSE OPERATIONS NOTIFIED.
[2017-11-29] MEDS: IV NS 1000 ML 1,000 ML IV PRN (19:43)
[2017-11-29] MEDS ORDERED: MORPHINE SULFATE 4 MG/1 ML DISP.SYRIN IM PRN (19:45)
--- NOTE | 2017-11-29 19:45 | NUR ---
PATIENT ASLEEP IN BED. NO S/S OF PAIN OR DISCOMFORT. NO RESP. DISTRESS NOTED. CALL LIGHT IN REACH. ALL NEEDS ATTENDED. WILL CONTINUE TO MONITOR. IVF HELD AT THIS TIME DUE TO "NO IV ACCESS."
[2017-11-29 20:08] VITALS: BP 102/45
[2017-11-29] MEDS: QUETIAPINE FUMARATE 25 MG TABLET PO SCH (20:24)
[2017-11-29] MEDS: NICOTINE 21 MG/24HR PATCH TD SCH (20:25)
--- NOTE | 2017-11-29 21:10 | NUR ---
RECEIVED CALL FROM DR. RODRIGUEZ. PATIENT IS SCHEDULED FOR SURGERY IN AM AT 0830 FOR I/D OF RIGHT UE ABSCESS. RECEIVED ORDER FOR CONSENT AND NPO AFTER MIDNIGHT. DR. RODRIGUEZ NOTIFIED THAT PATIENT HAS NO IV ACCESS AND NOTIFIED THAT MID-LINE WAS UNSUCCESSFUL AND ATTEMPTED 3 TIMES. STATED, THAT OR WILL ATTEMPT IN AM. PROFESSOR OF KINESIOLOGY NOTIFIED.
--- NOTE | 2017-11-30 01:00 | NUR ---
PATIENT GIVEN MORPHINE 4MG IM PRN FOR PAIN. WILL CONTINUE TO MONITOR.
--- NOTE | 2017-11-30 02:00 | NUR ---
PATIENT ASLEEP IN BED. MORPHINE EFFECTIVE.
[2017-11-30] MEDS: VANCOMYCIN IV 1,500 MG in IV DEXTROSE 5% 500 ML IV SCH ×2 (05:00→16:34)
--- NOTE | 2017-11-30 05:00 | NUR ---
VANCOMYCIN NOT GIVEN PATIENT HAS NO IV ACCESS. AWARE.
[2017-11-30 05:21] VITALS: BP 108/55
--- NOTE | 2017-11-30 05:45 | NUR ---
PATIENT KEPT NPO SINCE MIDNIGHT ORDERED. PATIENT HAS TEMPERATURE 100.1. VP AD SALES WEST NOTIFIED. PATIENT GIVEN TYLENOL 650MG PO PRN WITH VERY SMALL SIP OF WATER. PATIENT REFUSED AM LABS. VSS. CALL LIGHT IN REACH. ALL NEEDS ATTENDED.
[2017-11-30] MEDS: ACETAMINOPHEN 325 MG TABLET PO PRN (05:46)
[2017-11-30] MEDS: GABAPENTIN 300 MG CAPSULE PO SCH ×3 (05:47→21:07)
[2017-11-30] MEDS: PANTOPRAZOLE SODIUM 40 MG TABLET.DR PO SCH (06:02)
--- NOTE | 2017-11-30 06:10 | NUR ---
CALLED OUT TO DR. CASTRO FOR FURTHER ORDERS. MORPHINE 4MG IM CHANGED TO Q4 HOURS PRN INSTEAD OF Q6PRN.
[2017-11-30] MEDS ORDERED: MORPHINE SULFATE 4 MG/1 ML DISP.SYRIN IM PRN (06:15)
--- NOTE | 2017-11-30 06:25 | NUR ---
PATIENT GIVEN MORPHINE 4MG IM PRN ORDERED PER DR. CASTRO. WILL CONTINUE TO MONITOR.
[2017-11-30] MEDS: CLONAZEPAM 0.5 MG TABLET PO SCH (08:12)
--- NOTE | 2017-11-30 08:12 | NUR ---
PATIENT PICKED UP BY SURGERY, TRANSPORTED TO OR DEPARTMENT VIA GURNEY. PATIENT IS ALERT, IN NO DISTRESS.
[2017-11-30] MEDS ORDERED: POLYMYXIN B SULFATE 500,000 UNITS, BACITRACIN 50,000 UNITS, NORMAL SALINE 20 ML MC ONE ×3 (08:15)
[2017-11-30] MEDS ORDERED: LIDOCAINE HCL 1% 20 ML VIAL ONE (08:32)
[2017-11-30] MEDS ORDERED: BUPIVACAINE 0.25% 30 ML VIAL ONE (08:32)
[2017-11-30] MEDS ORDERED: LIDOCAINE 1%-EPI 1:100,000 20 ML VIAL ONE (08:32)
[2017-11-30] MEDS ORDERED: HYDROMORPHONE 2 MG/1 ML DISP.SYRIN ONE (09:07)
[2017-11-30] MEDS ORDERED: MIDAZOLAM HCL 2 MG/2 ML VIAL ONE (09:07)
[2017-11-30] MEDS ORDERED: HYDROMORPHONE 1 MG/1 ML DISP.SYRIN ONE ×2 (09:55→10:06)
[2017-11-30] MEDS ORDERED: FENTANYL CITRATE 100 MCG/2 ML AMPUL ONE (10:13)
[2017-11-30 11:19] VITALS: BP 161/104
[2017-11-30 11:20] VITALS: BP 129/54
[2017-11-30] MEDS ORDERED: MORPHINE SULFATE 4 MG/1 ML DISP.SYRIN IV PRN (12:00)
--- NOTE | 2017-11-30 12:30 | NUR ---
PATIENT SEEN BY STAFF TRYING TO LEAVE THE UNIT. SANDEEP CONLEY CALLED. PATIENT UPSET, INSISTING FOR PAIN MEDICATION DOSAGE AND HIS OTHER MEDICATION DOSAGE TO BE INCREASED. MD AWARE. ASSISTED PATIENT BACK TO HIS ROOM WITH SECURITY. PATIENT COOPERATED. 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
[2017-11-30] MEDS: IV NS 1000 ML 1,000 ML IV PRN (12:40)
--- NOTE | 2017-11-30 13:20 | NUR ---
WOUND CARE CONSULT: DEFER TO SURGEON FOR WOUND TREATMENT PLAN. WILL SEE PRN.
--- NOTE | 2017-11-30 14:10 | NUR ---
PATIENT CALM, RESTING IN BED. REINFORCED DRESSING ON RIGHT FOREARM.
[2017-11-30 15:01] VITALS: BP 121/61
--- NOTE | 2017-11-30 15:03 | NUR ---
Clinical Pharmacy Note: Vancomycin Pharmacy to Dose Subjective: To continue Vancomycin dosing on this 37 yo male patient for suspected infection- abscess Objective: BUN 6 Scr 1.2 Temp 99 trough cancelled since no dose given due to no iv access Assessment/Plan: Patient is on Vancomycin 1500mg IV every 11 hrs for predicted vanco trough level of 15 mcg/ml at steady state but doses were not given since last night due to lack of IV access. Currently patient is npo. Will resume Vancomycin once iv line is inserted. Will follow daily.
[2017-11-30] MEDS: LORAZEPAM 2 MG/1 ML VIAL IV PRN ×2 (16:35→22:21)
[2017-11-30] MEDS: CLONAZEPAM 1 MG TABLET PO SCH (16:57)
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
--- NOTE | 2017-11-30 18:00 | NUR ---
PATIENT CONTINUOUSLY WANDERS AROUND, WALKING THE HALLWAY. FREQUENT DISCUSSION/INSTRUCTIONS TO THE PATIENT BUT PATIENT IS STUBBORN, GETS AGITATED EASILY.
--- NOTE | 2017-11-30 19:30 | NUR ---
WANDERING AROUND THE HALLWAY WHEN ROUNDS MADE .PATIENT VERY ANXIOUS AND WANTS PAIN MEDICATION INFORMED PAIN MEDS NOT DUE .PATIENT KEEP ON TALKING NO FOCUS ON THE TOPIC OF THE CONSERVATION REDIRECTED TO ROOM .NOTED WITH EPISODE ADVERSE OF ANGER AT TIMES BE VERBALIZED AMA .REORIENTED AND REEDUCATED ATTEND ALL NEEDS .
--- NOTE | 2017-11-30 20:00 | NUR ---
SECURITY PERSONNEL CAME AND SPOKED WITH PATIENT ADVISED TO STAY IN HIS ROOM , AT THIS TIME PATIENT CALM AND FOLLOWS DIRECTIONS.
[2017-11-30 20:06] VITALS: BP 170/92
--- NOTE | 2017-11-30 20:15 | NUR ---
ALFREDO SPENCE AT BEDSIDE EVALUATED PATIENT AND SPOKED WITH PATIENT .
[2017-11-30] MEDS: QUETIAPINE FUMARATE 25 MG TABLET PO SCH (21:07)
[2017-11-30] MEDS: NICOTINE 21 MG/24HR PATCH TD SCH (21:08)
[2017-11-30] MEDS: HYDROCODONE/APAP 10-325 MG TABLET PO PRN (21:16)
--- NOTE | 2017-11-30 21:45 | NUR ---
WALKING AROUND THE HALLWAYS ADVISED PATIENT TO GO BACK TO HIS ROOM VERY UPSET AND CLAIMED HE MIGHT GO AMA TO NIGHT OR RADIOLOGY ASST .ASKED FOR SOMETHING TO EAT GIVEN 1 TURKEY SANDWICH AND 1 TUNA SANDWICH WITH VANILLA AND CHOCOLATE PUDDING .ESCORTED BACK TO BED ,PATIENT IS VERY ABUSIVE VERBALLY AND VERY RUDE .
[2017-12-01] MEDS: ACETAMINOPHEN 325 MG TABLET PO PRN (01:46)
[2017-12-01] MEDS: VANCOMYCIN IV 1,500 MG in IV DEXTROSE 5% 500 ML IV SCH (03:34)
[2017-12-01] MEDS: GABAPENTIN 300 MG CAPSULE PO SCH (05:04)
[2017-12-01] MEDS: HYDROCODONE/APAP 10-325 MG TABLET PO PRN (05:05)
--- NOTE | 2017-12-01 05:10 | NUR ---
PATIENT WAS UPSET WHY I DIDN'T WAKE HIM UP TO GIVE HIS PRN PAIN MEDICATIONS .PATIENT DEMANDED TO WAKE HIM UP EVEN IF HIS SLEEPING TO GIVE HIM PAIN MEDICATION . INFORMED HIS PAIN MEDICATION IS NOT ON ROUTINE SCHEDULE ITS PRN . NO WHEN HIS ABLE TO SLEEP HIS NOT IN PAIN .
[2017-12-01] MEDS: LORAZEPAM 2 MG/1 ML VIAL IV PRN (05:13)
--- NOTE | 2017-12-01 05:13 | NUR ---
LEFT AC IV PATENT,ABLE TO FLUSHED WITH NO COMPLAINS OF PAIN,GIVEN ATIVAN PRN REQUESTED . OFFERED TO REINSERT A NEW IVF DUE TO CURRENT IVF SITE IS POSITIONAL,ANOTHER RN ATTEMPTED X1 UNSUCCESSFUL PATIENT REFUSED REINSERTION AT THIS TIME WAS UPSET .
--- NOTE | 2017-12-01 05:30 | NUR ---
WENT BACK TO CHECKED ON PATIENT IVF ANTIBIOTICS AND IV FLUIDS ,PATIENT VERY MAD, SCREAMING DONT TOUCH ME AND DONT BROTHER ME AND HE CLOSES THE DOOR .
[2017-12-01] MEDS: PANTOPRAZOLE SODIUM 40 MG TABLET.DR PO SCH (06:04)
--- NOTE | 2017-12-01 07:10 | NUR ---
CAME TO NURSING STATION VERBALIZE IV PUMP KEEPS ON BEEPING AND THAT HIS IV SITE STARTS TO HURT HIM , CHECKED IV ACCESS SWOLLEN ,D/C IV AND APPLIED PRESSURE DRESSING PATIENT REFUSED REINSERTION OF HEPLOCK HE SAID HE WANTS ATIVAN GIVEN IM FROM NOW ON AND DONT WANT IV .
--- NOTE | 2017-12-01 07:30 | NUR ---
Patient insisting on getting his PRN Ativan at this time. Explained to patient that Ativan is not due to be given yet, just administered at 0515AM, but patient kept insisting on getting is medication. Explained to patient that we need to get an order from MD before administering Ativan. Will continue to monitor. CN made aware. Patient also noted with swelling on his MALLY, no redness noted, no warmth, patient denies pain on the site. Previous IV site was noted on the same arm with IV Vanco last infused per endorsement of night RN. Instructed patient to elevate the arm. Will continue to monitor. Will call
[2017-12-01] MEDS: CLONAZEPAM 1 MG TABLET PO SCH (08:19)
[2017-12-01] MEDS ORDERED: LIDOCAINE-MPF 2% 5 ML VIAL MC ONE (09:21)
[2017-12-01] MEDS ORDERED: PROPOFOL 200 MG/20 ML BOTTLE IV ONE (09:21)
[2017-12-01] MEDS ORDERED: ONDANSETRON 4 MG/2 ML VIAL IV ONE (09:21)
[2017-12-01] MEDS ORDERED: DEXAMETHASONE SOD PHOSPHATE 4 MG INJ IV ONE (09:21)
[2017-12-01] MEDS ORDERED: SEVOFLURANE 250 ML BOTTLE IH ONE (09:21)
--- NOTE | 2017-12-01 09:25 | NUR ---
Patient left the hospital AMA, refused to sign the AMA form. No IV site noted. Patient ID band was discontinued. CN made aware. made aware. Patient is awake, alert and oriented x4, in no acute distress. Left the hospital in stable condition. All personal belongings with patient. Refused to sign the personal belongings checklist. No belongings left in the patient's room
== END 2017-12-01 09:22 | disposition left against medical advice (07) | DRG 558 ==
LOC: ER 09:17 → MED 15:07
PROVIDERS: ADMIT Nurse Practitioner Acute Care; ATTEND Nurse Practitioner Acute Care
PROC: 0J9G3ZX Drainage of Right Lower Arm Subcutaneous Tissue and Fascia, Percutaneous Approach, Diagnostic (ICD-10-PCS; principal; 2017-11-30 09:08)
DX: M60.031 Infective myositis, right forearm (principal); L03.113 Cellulitis of right upper limb; E87.1 Hypo-osmolality and hyponatremia; G40.909 Epilepsy, unspecified, not intractable, without status epilepticus; F41.0 Panic disorder [episodic paroxysmal anxiety]; S59.91 Unspecified injury of forearm; Y09 Assault by unspecified means; G47.00 Insomnia, unspecified; Z59.0 Homelessness; Z91.19 Patient's noncompliance with other medical treatment and regimen; F43.10 Post-traumatic stress disorder, unspecified; F32.9 Major depressive disorder, single episode, unspecified; F17.200 Nicotine dependence, unspecified, uncomplicated; Z86.19 Personal history of other infectious and parasitic diseases; F11.21 Opioid dependence, in remission; F19.10 Other psychoactive substance abuse, uncomplicated
CPT/HCPCS: 36415; 80307; 80346; 80349; 83605; 83735; 84100; 85025; 87070; 87075; 87077; 87806; A4649; A4663; A9150; J1100; J1170; J1885; J2060; J2250; J2270; J2405; J2543; J3010; J3370; J3490; J7030; J7050; J7060; Q9967

== ENCOUNTER 2018-03-28 19:19 | Inpatient (IN) | payer BC, OTHER ==
[~2018-03-28] VITALS: Ht 185.4 cm; Wt 81.6 kg
[~2018-03-28 19:19] MED LIST changes: +CLON2TAB PO; +GABA600T12 PO; -GABA600T2 PO
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
[2018-03-28] MEDS ORDERED: LORAZEPAM 1 MG TABLET PO PRN (21:15)
[2018-03-28] MEDS ORDERED: diphenhydrAMINE 50 MG CAPSULE PO PRN (21:15)
[2018-03-28] MEDS ORDERED: MAGNESIUM HYDROXIDE 30 ML LIQUID UDC PO PRN (21:15)
[2018-03-28] MEDS ORDERED: MIRALAX 17 GM POWD.PACK PO PRN (21:15)
[2018-03-28] MEDS ORDERED: LORAZEPAM 2 MG/1 ML VIAL IM PRN (21:15)
[2018-03-28] MEDS: MULTIVITAMINS,THERAPEUTIC TABLET PO SCH (21:15)
[2018-03-28] MEDS ORDERED: LOPERAMIDE HCL 2 MG CAPSULE PO PRN ×2 (21:15)
[2018-03-28] MEDS ORDERED: MAG HYDROX/AL HYDROX/SIMETH 30 ML LIQUID UDC PO PRN (21:15)
[2018-03-28] MEDS ORDERED: ONDANSETRON 4 MG/2 ML VIAL IM PRN (21:15)
[2018-03-28] MEDS ORDERED: ONDANSETRON ODT 4 MG TAB.RAPDIS SL PRN (21:15)
[2018-03-28 21:30] LABS: BASOPHILS % (AUTO) 0.4 % (0.0-2.0); EOSINOPHILS # (AUTO) 0.2 K/uL (0.0-0.7); EOSINOPHILS % (AUTO) 4.7 % (0.0-7.0); HEMOGLOBIN 11.4 g/dL (12.5-16.3); LYMPHOCYTES # (AUTO) 1.7 K/uL (20.0-40.0); LYMPHOCYTES % (AUTO) 35.8 % (20.5-51.5); MEAN CORPUSCULAR HEMOGLOBIN 21.6 uug (23.8-33.4); MEAN CORPUSCULAR HGB CONC 33 g/dL (32.5-36.3); MEAN CORPUSCULAR VOLUME 66.2 fL (73.0-96.2); MONOCYTES # (AUTO) 0.5 K/uL (2.0-10.0); NEUTROPHILS # (AUTO) 2.3 K/uL (1.8-8.9); NEUTROPHILS % (AUTO) 49.1 % (38.5-71.5); PLATELET COUNT (AUTO) 165 K/uL (152-348); RED BLOOD CELL COUNT(AUTO) 5.28 MIL/uL (4.06-5.63); WHITE BLOOD COUNT (AUTO) 4.7 K/uL (3.6-10.2)
[2018-03-28 21:35] LABS: *AMPHETAMINE, URINE NEGATIVE (NEGATIVE); *BARBITURATE, URINE NEGATIVE (NEGATIVE); *CANNABINOID, URINE POSITIVE (NEGATIVE); *COCCAINE, URINE NEGATIVE (NEGATIVE); *OPIATE, URINE NEGATIVE (NEGATIVE); *PHENCYCLIDINE SCREEN,URINE NEGATIVE (NEGATIVE)
[2018-03-28] MEDS ORDERED: GABA800T11 PO (21:58)
[2018-03-28] MEDS ORDERED: HYDR50CA PO (21:58)
[2018-03-28] MEDS ORDERED: CYCL5TAB PO (21:58)
[2018-03-28] MEDS ORDERED: BUPR1FIL3 SL (21:58)
[2018-03-28] MEDS ORDERED: BUPR8TAB4 SL (21:58)
[2018-03-28 22:04] LABS: ETHANOL < 3 MG/DL (0-0)
[2018-03-28 22:08] LABS: ALANINE AMINOTRANSFERASE 102 U/L (16-63); ALKALINE PHOSPHATASE 36 U/L (50-136); ASPARTATE AMINOTRANSFERASE 60 U/L (15-37); BILIRUBIN,TOTAL 0.2 mg/dL (0.2-1.0); CARBON DIOXIDE 30 mmol/L (21-32); CHLORIDE 102 mmol/L (98-107); GLUCOSE 91 mg/dL (74-106); MAGNESIUM 1.8 mg/dL (1.8-2.4); POTASSIUM 3.9 mmol/L (3.5-5.1); TOTAL PROTEIN, SERUM 7.3 g/dL (6.4-8.2); UREA NITROGEN, BLOOD 19 mg/dL (7-18)
[2018-03-28 22:17] LABS: THYROID STIMULATING HORMONE 0.759 mIU/mL (0.358-3.740)
[2018-03-28] MEDS ORDERED: QUETIAPINE FUMARATE 25 MG TABLET PO ONE (22:20)
[2018-03-28] MEDS: LORAZEPAM 1 MG TABLET PO PRN (22:31)
[2018-03-28] MEDS: BUPRENORPHINE HCL 2 MG TAB.SUBL SL PRN (22:31)
--- NOTE | 2018-03-28 22:31 | NUR ---
PRN ATIVAN 2 MG AND SUBUTEX 4 MG ADMINISTRATION CIWA 18 and COWS 14. Pt presents with anxiety, agitation, restlessness, tremors, nausea, stomach cramps, runny nose, flushed skin, enlarged pupils, sweats, tactile disturbances "skin crawling," headache, and is fidgety. Safety measures in place. Call light within reach. Will continue to monitor.
--- NOTE | 2018-03-28 23:31 | NUR ---
PRN ATIVAN AND SUBUTEX REASSESSMENT Pt laying in bed with eyes closed, snoring. Medications noted effective. Respirations even and unlabored. Safety measures in place. Call light within reach. Will continue to monitor.
[2018-03-29] VITALS: BP 123/60
[2018-03-29 04:00] VITALS: BP 119/54
--- NOTE | 2018-03-29 07:25 | NUR ---
END OF SHIFT Pt is a 37 y/o male admitted last night for medically supervised withdrawal from benzos, ETOH and opiates. Pt has PRN Subutex and PRN Ativan at this time. Pt presented with anxiety, agitation, restlessness, tremors, nausea, stomach cramps, runny nose, flushed skin, sweats, tactile disturbances "skin crawling," headache, difficulty concentrating, poor eye contact, and slumped posture. Pt has dirty fingernails and reports pain in his hands. PRN Ativan 2 mg, Subutex 4 mg, and one time order for Seroquel 50 mg administered during shift. Last COWS 14 and CIWA 18. Pt slept 7 hours. Intake 1092 ml, void x 2, stool x 0. Safety measures in place. Call light within reach. Pts needs have been met. Endorsed to day shift nurse.
[2018-03-29 08:00] VITALS: BP 134/95
[2018-03-29] MEDS: LORAZEPAM 1 MG TABLET PO PRN (08:30)
[2018-03-29] MEDS: MULTIVITAMINS,THERAPEUTIC TABLET PO SCH (08:30)
[2018-03-29] MEDS: IBUPROFEN 600 MG TABLET PO PRN ×2 (08:30→22:32)
--- NOTE | 2018-03-29 08:30 | NUR ---
START OF SHIFT: Received Pt A/O X 4. He is fidgety and appears restless. Poor eye contact noted. He is hyperverbal. He presents with anxious mood and congruent affect. He reports anxiety,irritability,restlessness,runny nose, back pain 4/10,sweats,chills,"skin crawling and agitation. COWS 18 CIWA 18. PRN Ativan 2 mg PO and Subutex 4 mg SL given to manage s/s of w/d. PRN Motrin 600 mg PO given to manage back pain. Will monitor effectiveness of PRNS. Encouraged increased fluids to assist in facilitating detox process. Will continue to monitor and provide support.
[2018-03-29] MEDS: BUPRENORPHINE HCL 2 MG TAB.SUBL SL PRN (08:31)
[2018-03-29] MEDS ORDERED: TUBERCULIN,PURIF.PROT.DERIV. 5 TU/0.1 ML TEST ID ONE (09:00)
--- NOTE | 2018-03-29 09:30 | NUR ---
PRN Subutex effective aeb COWS 9. Ativan effective aeb CIWA 11. Motrin effective as pain is 2/10 on pain scale. Will continue to monitor and offer support.
--- NOTE | 2018-03-29 11:04 | NUR ---
Therapist prompted client to attend group therapy.
[2018-03-29] MEDS ORDERED: DIAZEPAM 5 MG TABLET PO PRN (11:15)
[2018-03-29] MEDS ORDERED: 5 DAY TAPER VALIUM-SERENITY PROTOCOL PO PRN (11:15)
[2018-03-29] MEDS ORDERED: 5 DAY TAPER BUPRENORPHINE -SERENITY PROTOCOL SL PRN (11:15)
[2018-03-29] MEDS ORDERED: DIAZEPAM 10 MG TABLET PO PRN ×2 (11:15)
[2018-03-29 12:00] VITALS: BP 115/60
[2018-03-29] MEDS: BUPRENORPHINE HCL 2 MG TAB.SUBL SL SCH ×3 (12:53→21:13)
[2018-03-29] MEDS ORDERED: DIAZEPAM 10 MG TABLET PO ONE (14:00)
[2018-03-29] MEDS: GABAPENTIN 400 MG CAPSULE PO SCH (15:52)
[2018-03-29] MEDS: DIAZEPAM 10 MG TABLET PO SCH ×2 (15:52→21:12)
[2018-03-29 16:00] VITALS: BP 114/63
[2018-03-29] MEDS ORDERED: GABAPENTIN 300 MG CAPSULE PO SCH (17:00)
[2018-03-29] MEDS ORDERED: PHENOBARBITAL 32.4 MG TABLET PO ONE (18:00)
[2018-03-29] MEDS ORDERED: PHENOBARBITAL 60 MG TABLET PO ONE (18:30)
--- NOTE | 2018-03-29 19:30 | NUR ---
END OF SHIFT; Pt started Valium/Subutex taper to manage s/s of w/d which include anxiety,restlessness, irritability,sweats and agitation. Last COWS 10 CIWA 12. He was given Subutex and Ativan PRN this morning prior to taper starting and it was effective. MD ordered one time dose of Phenobarbital late in shift and it was effective. He was compliant with increased fluids. Pt was observed pacing about unit which he states helps his anxiety.MRSA swab collected and sent to lab. Will pass shift report to oncoming night nurse.
--- NOTE | 2018-03-29 19:30 | NUR ---
Start of shift note Received report from day shift nurse. Patient is a 37 year old male admitted for Benzodiazepine, ETOH and Opiate withdrawal. Patient is on 1st day of 5 day Valium and 5 day Subutex taper. Patient was given one time Phenobarbital. MRSA swab done. Last COWS 10 and CIWA 12. Patient alert and oriented x 4. Patient is hyperverbal and blunt. Patient reports increased anxiety, restlessness, irritability, agitation, sweating, abdominal cramping and nauseated but no emesis. Relaxation technique provided. Safety measures in place. Will continue to monitor
[2018-03-29 20:00] VITALS: BP 130/66
[2018-03-29] MEDS: QUETIAPINE FUMARATE 25 MG TABLET PO PRN (22:31)
--- NOTE | 2018-03-29 22:32 | NUR ---
PRN Seroquel and Motrin administration Patient c/o pain on both hands and requests for sleep aid. Will monitor for effectiveness
--- NOTE | 2018-03-29 23:32 | NUR ---
PRN Seroquel and Motrin re-assessment Patient lying in bed with eyes closed. No facial grimacing. Respiration even and unlabored. Will continue to monitor.
--- NOTE | 2018-03-30 | NUR ---
COWS and CIWA deferred Patient in bed asleep. Respiration even and unlabored. Will continue to monitor VS refused
--- NOTE | 2018-03-30 04:00 | NUR ---
COWS and CIWA deferred Patient lying in bed with eyes closed. Respiration even and unlabored. Will continue to monitor VS refused
--- NOTE | 2018-03-30 07:22 | NUR ---
End of shift note Monitored patient throughout shift. Patient alert and oriented x 4. Patient reported increased anxiety, restlessness, irritability, agitation, sweating, abdominal cramping and nauseated. Scheduled taper given , tolerated well and no adverse reaction . Patient was given PRN Seroquel and Motrin at 2232 .Relaxation technique provided. Safety measures in place. Will continue to monitor. Patient slept 7 hours. Fluid intake 1,546 ml. Voided x 2. No BM. Last COWS 11 and CIWA 10.
--- NOTE | 2018-03-30 07:25 | NUR ---
Start Of Shift Report received from evening or night nurse supervisor nurse. Patient is a 37 year old male admitted for Benzodiazepine, ETOH and Opiate withdrawal. Per evening or night nurse supervisor nurse pt's last CIWA was 10 and COWS was a 11. Pt is continues his 5 day Valium and 5 Day Subutex tapers. Upon start of shift pt noted in his room standing up by the window looking out the window. When greeted pt stated "Hey am I going to get my medication now? I really need it, I havent gotten it in a long time since last night, Im feeling the withdrawals already, Im sweaty and super anxious. Pt's room appears unorganized, pt has water, soda bottles and candy wraps on the floor around the room. Pt appears anxious, sweaty and flushed. During assessment, pt is AOx4. Lung sounds clear bilaterally. Radial pulse is regular and non-bounding. Abdomen soft and non-tender. Pt's skin is warm and intact. pt denies any pain at the moment. Encouraged pt to drink plenty of fluids to keep hydrated, compensate for all the fluid lost in sweat and help the detox process. Pt received PRN Seroquel and Motrin last night per evening or night nurse supervisor medication was effective, pt slept a total of 8 hours last night. Bed in lowest position. Side rails up x2. Call light functioning and within reach. All needs attended and met. Will continue to monitor.
[2018-03-30 08:00] VITALS: BP 127/69
[2018-03-30] MEDS: DIAZEPAM 5 MG TABLET PO SCH ×4 (08:47→20:42)
[2018-03-30] MEDS: GABAPENTIN 400 MG CAPSULE PO SCH ×3 (08:47→17:11)
[2018-03-30] MEDS: MULTIVITAMINS,THERAPEUTIC TABLET PO SCH (09:00)
[2018-03-30] MEDS ORDERED: BUPRENORPHINE HCL 2 MG TAB.SUBL SL SCH (09:00)
[2018-03-30 12:00] VITALS: BP 121/79
--- NOTE | 2018-03-30 12:51 | NUR ---
RT prompted and encouraged pt to attend rec therapy groups.
[2018-03-30] MEDS ORDERED: BUPRENORPHINE HCL 2 MG TAB.SUBL SL ONE (13:00)
[2018-03-30 13:08] LABS: HEPATITIS B SURFACE AG Negative (Negative)
[2018-03-30] MEDS ORDERED: PHENOBARBITAL 60 MG TABLET PO ONE ×2 (13:15→18:30)
--- NOTE | 2018-03-30 13:42 | NUR ---
Therapist prompted client to attend group therapy sessions daily.
--- NOTE | 2018-03-30 14:56 | NUR ---
Pt Endorsed Pt endorsed to RN on shift, pt is in stable condition A&OX4 no s/s of distress noted or reported, all medications given, process plans completed, nursing assessment completed.
--- NOTE | 2018-03-30 14:57 | NUR ---
PT ENDORSED Pt endorsed to me. All information received.
[2018-03-30 16:00] VITALS: BP 104/58
[2018-03-30] MEDS: BUPRENORPHINE HCL 2 MG TAB.SUBL SL SCH (17:11)
--- NOTE | 2018-03-30 18:52 | NUR ---
PRN PHENOBARBITAL X1 AND MIRALAAX ciwa=13. Anxious and restless. Pacing. Bilateral hand tremors. Irritable. Pressured speech. Agitated. MD aware with new order for Phenobarbital 60mg po x1 dose noted and carried out. Complaints of constipation. Miralaax prn per MD order given.
--- NOTE | 2018-03-30 19:04 | NUR ---
END OF SHIFT Pt 37 y/o male admitted for benzo, etoh, and opiate withdrawal. Pt alert and oriented to name, place, and time. Perrla. Skin warm and moist to touch. Respirations even and unlabored. Appears disheveled. Clothes scattered throughout the room. Encouraged to maintain hygiene. Anxious and restless. Irritable. Pressured speech. Bilateral hand tremors. Intermittent perspiration/ chills. Complaints of generalized discomfort. Last cows=13 ciwa=13 @1600. Pt selective with group activity. Pt is on a 5 day Subutex taper and is on day 2. Pt is also on a 5 day valium taper and is on day 2. Bed on lowest position with side rails x2 up for safety. Call light within reach.
--- NOTE | 2018-03-30 19:30 | NUR ---
START OF SHIFT Pt is a 37 y/o male admitted on 03/28/17 for benzo and ETOH withdrawal. Pt started Subutex maintenance today and will continue with Subutex 8 mg BID until discharge. Last COWS 13 and CIWA 13 and PRN Miralax administered during day shift. Upon assessment pt presents with anxiety, restlessness, hypervigilence, sweats, agitation, unkempt room and is pacing around hallways requesting to smoke. Medications due. Safety measures in place. Call light within reach. Will continue to monitor.
[2018-03-30 20:00] VITALS: BP 115/55
[2018-03-30] MEDS: QUETIAPINE FUMARATE 25 MG TABLET PO PRN (21:34)
--- NOTE | 2018-03-30 21:34 | NUR ---
PRN SEROQUEL AND MILK OF MAG ADMINISTRATION Pt requests Seroquel for sleep aid and Milk of mag for constipation. Safety measures in place. Call light within reach. Will continue to monitor.
--- NOTE | 2018-03-30 22:34 | NUR ---
PRN SEROQUEL AND MILK OF MAG REASSESSMENT Pt laying in bed with eyes closed, medications noted effective. Respirations even and unlabored. Safety measures in place. Call light within reach. Will continue to monitor.
--- NOTE | 2018-03-31 | NUR ---
VITALS REFUSED Pt laying in bed with eyes closed. Vitals refused. Respirations even and unlabored. Safety measures in place. Call light within reach. Will continue to monitor.
--- NOTE | 2018-03-31 07:10 | NUR ---
END OF SHIFT Pt is a 37 y/o male admitted on 03/28/17 for benzo and ETOH withdrawal. Pt started Subutex maintenance and will continue with Subutex 8 mg BID until discharge. Pt presented with anxiety, restlessness, hypervigilence, emotional lability, sweats, agitation, difficulty falling and staying asleep, and unkempt room. Pt slept 5 hours. Intake 1500 ml, void x 1, stool x 0. Safety measures in place. Call light within reach. Pts needs have been met. Endorsed to day shift nurse.
--- NOTE | 2018-03-31 07:42 | NUR ---
Start of shift note; Received report from night nurse. Patient is a 37 year old male admitted on 03/28/18 for Benzodiazepine/ ETOH/ Opiate withdrawals. Patient is AOX4, patient appears anxious, restless, complaining of intermittent sweats, chills, muscle aches, insomnia, avoidant to eye contact. Patient was placed on 5 day Valium taper and Subutex to help reduce withdrawal symptoms. Patient's last COWS score is 8 and last CIWA score is 10 per endorsement. Patient slept for 5 hours. Patient to be closely monitored for behavioral episodes. All safety measures secured. Will continue to monitor patient.
[2018-03-31 08:00] VITALS: BP 131/86
[2018-03-31] MEDS: MULTIVITAMINS,THERAPEUTIC TABLET PO SCH (08:37)
[2018-03-31] MEDS: GABAPENTIN 400 MG CAPSULE PO SCH ×3 (08:37→16:11)
[2018-03-31] MEDS: BUPRENORPHINE HCL 2 MG TAB.SUBL SL SCH ×2 (08:37→16:11)
[2018-03-31] MEDS: DIAZEPAM 5 MG TABLET PO SCH ×3 (08:37→20:25)
--- NOTE | 2018-03-31 08:37 | NUR ---
Medication administration; Patient is AOX4, presented with anxiety, agitation, complaining of muscle aches, chills, intermittent sweats, mild nausea, stomach cramps and avoidant to eye contact. All due medications administered. Patient was under direct supervision during medication administration , advertising writer was accompanied by ROVING DEPARTMENT SUPERVISOR. Witnessed patient take medication properly, thorough mouth check done. Medications were swallowed and dissolved properly. Educated patient regarding the importance of compliance to treatment and medication regime. Will closely monitor patient.
[2018-03-31] MEDS ORDERED: BUPRENORPHINE HCL 2 MG TAB.SUBL SL SCH ×2 (09:00→15:00)
[2018-03-31 12:00] VITALS: BP 112/69
[2018-03-31] MEDS ORDERED: PHENOBARBITAL 60 MG TABLET PO ONE ×2 (13:30→18:30)
--- NOTE | 2018-03-31 13:33 | NUR ---
One time dose of Phenobarbital; Patient current CIWA score is 14 manifested by anxiety, agitation, diaphoresis, chills, tremors, restless legs, muscle aches, stomach cramps , patient also verbalized " I don't feel good, i feel like i am going to have a seizure. I was using a lot of Benzodiazepine prior to getting admitted here, i would like to speak to MD". MD was notified and made aware of patient's symptoms. Patient was seen and evaluated by MD. MD ordered one time dose of Phenobarbital 60 mg PO to help reduce withdrawal symptoms and help prevent withdrawal induced seizures, medication was ordered addition to his Valium taper. Medication given as per MD order.
--- NOTE | 2018-03-31 14:33 | NUR ---
Re-assessment; Patient assessment done, patient verbalized "I am starting to feel better". Patient current CIWA score is 13 manifested by anxiety, diaphoresis, chills, tremors, restless legs, muscle aches and stomach cramps. Phenobarbital one time dose noted to be effective. Will closely monitor patient. Fall and seizure precautions observed. Addendum: 03/31/18 at 1625 by MIKKI LEROY RN Clarification; CIWA score of 12 noted.
[2018-03-31 16:00] VITALS: BP 111/77
--- NOTE | 2018-03-31 18:05 | NUR ---
End of shift note; Patient is AOX4, presented with anxiety, tremors, intermittent sweats, chills, stomach cramps, fatigue, muscle aches and generalized discomfort. Patient was placed on a 5 day Valium taper and maintenance Subutex 8mg BID per MD order. Patient remained compliant with treatment plan and medication regime. Patient participated in group activities and therapies. Patient received one time dose of Phenobarbital in addition to his taper medications per MD order. Patient's last COWS score is 14 and last CIWA score is 12 at 1600. Medications were effective in reducing withdrawal symptoms. All safety measures secured. Met all needs.
--- NOTE | 2018-03-31 18:30 | NUR ---
MD communication and patient assessment; Patient appears very anxious , walking back forth in the room, face flushed, tremors noted, diaphoresis noted, slurred speech noted. Patient is also complaining of stomach aches, generalized discomfort, tingling sensations and headache. Patient's current CIWA score is 16. Dr. Kumar made aware, MD verbalized telephone order of Phenobarbital 60 mg one time dose for breakthrough withdrawal symptoms. Order was verified and clarified with MD. MD unable to enter medication on [employer] at this time. Medication entered on [employer] as ordered by MD. Medication carried out and to be given to patient as ordered.
[2018-03-31] MEDS: ACETAMINOPHEN 325 MG TABLET PO PRN (18:44)
--- NOTE | 2018-03-31 18:44 | NUR ---
PRN medication and One time dose medication; Patient's current CIWA score is 16, MD ordered one time dose of Phenobarbital 60 mg One time given as per MD ordered. Tylenol 650 mg given for headache/pain rated 7/10. Will continue to monitor patient. Will endorse to oncoming nurse.
--- NOTE | 2018-03-31 19:30 | NUR ---
Start of Shift Patient Received. Per endorsement, Patient is a 37 year old male that continues on a scheduled maintenance Subutex taper and 5 day Valium taper. Patient was noted to received PRN Phenobarbital 60mg x2 and PRN Tylenol with medication noted to be effective. Last noted COWS 14 and CIWA 12. Upon rounds patient was noted in the hallways pacing. He was able to verbalize "I've been waiting to go smoke for about 30 minutes and its just frustrating because they just keep telling me to wait." Explained to patient of unit rules and protocols. Patient verbalized understanding. Patient continues to be monitored increased anxiety, restlessness, agitation, chills, sweats, stomach cramps, muscles cramps, fatigue, and insomnia. Patient is noted to request his sleep aid with his routine medications. He states "I just want to go to bed when I come back upstairs from smoking." Patent is noted to join peers for smoking break. All needs attended to promptly. All questions answered. Will continue plan of care as ordered.
[2018-03-31 20:15] VITALS: BP 118/78
[2018-03-31] MEDS: QUETIAPINE FUMARATE 25 MG TABLET PO PRN (20:25)
--- NOTE | 2018-03-31 20:25 | NUR ---
PRN Medication Administration Patient is noted verbalizing inability of falling asleep. PRN Seroquel administered with routine medications. Will continue to monitor.
--- NOTE | 2018-03-31 21:25 | NUR ---
PRN Medication Reassessment Patient is noted in bed with eyes closed. Breathing even and non labored. No signs of restlessness noted. PRN Seroquel noted to be effective. Will continue to monitor.
--- NOTE | 2018-04-01 00:27 | NUR ---
COWS, CIWA, and Vitals Patient is noted in bed with eyes closed. Breathing even and non labored. No signs of restlessness or facial grimacing noted. Patient Refused Vitals. CIWA and COWS not able to be completed as per order. Will continue to monitor.
--- NOTE | 2018-04-01 06:56 | NUR ---
End of Shift Patient is noted in bed with eyes closed. Breathing even and non labored. No signs of restlessness or facial grimacing noted. Patient is a 37 year old male that continues on a scheduled maintenance Subutex taper and 5 day Valium taper. Patient received PRN Seroquel with medication noted to be effective. Patient noted to sleep a total of 8 hours. Last noted COWS 15 and CIWA 18. Patient continues to be monitored increased anxiety, restlessness, agitation, chills, sweats, stomach cramps, muscles cramps, fatigue, and insomnia. All needs attended to promptly. All questions answered. Will continue plan of care as ordered.
--- NOTE | 2018-04-01 07:21 | NUR ---
Start of shift note; Received report from night nurse. Patient is a 37 year old male admitted on 03/28/18 for Benzodiazepine/ ETOH/ Opiate withdrawals. Patient is AOX4, patient appears anxious, restless, complaining of intermittent sweats, chills, muscle aches, insomnia, avoidant to eye contact. Patient was placed on 5 day Valium taper and Subutex to help reduce withdrawal symptoms. Patient's last COWS score is 15 and last CIWA score is 18 per endorsement. Patient slept for 8 hours. Patient to be closely monitored for behavioral episodes. All safety measures secured. Will continue to monitor patient.
[2018-04-01 08:00] VITALS: BP 131/56
[2018-04-01] MEDS: MULTIVITAMINS,THERAPEUTIC TABLET PO SCH (08:00)
[2018-04-01] MEDS: GABAPENTIN 400 MG CAPSULE PO SCH ×3 (08:00→16:21)
[2018-04-01] MEDS: DIAZEPAM 5 MG TABLET PO SCH ×2 (08:00→20:36)
[2018-04-01] MEDS: BUPRENORPHINE HCL 2 MG TAB.SUBL SL SCH ×2 (08:01→16:22)
[2018-04-01] MEDS ORDERED: BUPRENORPHINE HCL 2 MG TAB.SUBL SL SCH (09:00)
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
--- NOTE | 2018-04-01 10:14 | NUR ---
Therapist prompted client to attend group therapy.
[2018-04-01 12:00] VITALS: BP 109/78
[2018-04-01] MEDS ORDERED: PHENOBARBITAL 60 MG TABLET PO ONE (13:30)
--- NOTE | 2018-04-01 13:35 | NUR ---
One time dose of Phenobarbital; Patient was seen and evaluated by MD. MD ordered one time dose of Phenobarbital 60 mg PO to help reduce withdrawal symptoms and help prevent withdrawal induced seizures, medication was ordered addition to his Valium taper. Medication given as per MD order. Patient's current CIWA score is 14 manifested by anxiety, agitation, diaphoresis, chills, tremors, restless legs, muscle aches, stomach cramps. Will continue to monitor patient.
--- NOTE | 2018-04-01 14:35 | NUR ---
Re-assessment; Patient's current CIWA score has improved. CIWA score if 12 at this time. One time dose of Phenobarbital was effective. Will continue to monitor patient.
[2018-04-01 16:00] VITALS: BP 111/69
--- NOTE | 2018-04-01 18:51 | NUR ---
End of shift note; Patient is AOX4, presented with anxiety, tremors, intermittent sweats, chills, stomach cramps, fatigue, muscle aches and generalized discomfort. Patient was placed on a 5 day Valium taper and maintenance Subutex 8mg BID per MD order. Patient remained compliant with treatment plan and medication regime. Patient participated in group activities and therapies. Patient received one time dose of Phenobarbital in addition to his taper medications per MD order. Patient's last COWS score is 12 and last CIWA score is 12 at 1600. Medications were effective in reducing withdrawal symptoms. All safety measures secured. Met all needs.
--- NOTE | 2018-04-01 19:15 | NUR ---
Start of Shift Received 37 year old male patient admitted to [facility] 03/28/18 for medically supervised withdrawal from ETOH, Benzodiazepines, and Opiates. Pt currently on day 4 of a 5 day Valium taper and Subutex 8mg BID maintenance dose, which he is tolerating well. Last CIWA 12 @1600. Pt is participating in group at this time. Bed low, side rails up x 2, and call hay in reach. Will continue to monitor.
[2018-04-01 20:00] VITALS: BP 116/69
[2018-04-01] MEDS: QUETIAPINE FUMARATE 25 MG TABLET PO PRN (20:36)
--- NOTE | 2018-04-01 20:36 | NUR ---
PRN Seroquel Pt requested medication for sleep. Seroquel given per order. Will monitor effect.
[2018-04-01] MEDS: CLONIDINE HCL 0.1 MG TABLET PO PRN (21:27)
[2018-04-01] MEDS: HYDROXYZINE PAMOATE 25 MG CAPSULE PO PRN (21:27)
--- NOTE | 2018-04-01 21:27 | NUR ---
Reassess PRN Seroquel/PRN Clonidine and Vistaril Seroquel not effective. Pt c/o increased anxiety, agitation, palpitations and noted to have increased tremors. Clonidine and Vistaril given per order. Will monitor effect.
--- NOTE | 2018-04-01 22:27 | NUR ---
Reassess PRN Clonidine and Vistaril Effective. Pt resting with eyes closed. Respirations even and unlabored. Will continue to monitor.
[2018-04-02 00:32] VITALS: BP 132/77
--- NOTE | 2018-04-02 04:00 | NUR ---
CIWA/COWS deferred/Vitals refused Pt resting with eyes closed. Respirations even and unlabored. CIWA/COWS deferred and pt refused vitals Will continue to monitor.
--- NOTE | 2018-04-02 06:42 | NUR ---
End of Shift Endorsing 37 year old male patient admitted to [facility] 03/28/18 for medically supervised withdrawal from ETOH, Benzodiazepines, and Opiates. Pt currently on day 5 of a 5 day Valium taper and Subutex 8mg BID maintenance dose, which he is tolerating well. Last CIWA 10 @0030. Pt in bed resting with eyes closed. Respirations are even and unlabored. Bed low, side rails up x 2, and call hay in reach. PO intake 1622 ml, voided x 3, BM x 1, and slept 8 hours.
--- NOTE | 2018-04-02 07:54 | NUR ---
Start of shift Pt is here for medically supervised withdrawal of ETOH, benzos, and opiates. Pt on 5 day Valium taper, today is day 5. He is also on a maintenance Subutex 8 mg BID. At 2400 last COWS 10 CIWA 10. Pt slept 8 hours. Patient c/o anxiety, nausea, fatigue, gross tremors, difficulty concentrating, anhedonia, head ache, flat affect and depressed mood. He is also demanding, labile and intrusive. Encouraged Pt to participate in group therapy sessions today to identify positive coping skills to maintain sobriety. All safety measures in place, bed locked/low position. Will continue to monitor for withdrawal symptoms.
[2018-04-02 08:00] VITALS: BP 107/86
[2018-04-02] MEDS: IBUPROFEN 600 MG TABLET PO PRN (08:05)
[2018-04-02] MEDS: GABAPENTIN 400 MG CAPSULE PO SCH ×3 (08:05→16:33)
[2018-04-02] MEDS: ACETAMINOPHEN 325 MG TABLET PO PRN (08:05)
[2018-04-02] MEDS: MULTIVITAMINS,THERAPEUTIC TABLET PO SCH (08:05)
[2018-04-02] MEDS: BUPRENORPHINE HCL 2 MG TAB.SUBL SL SCH ×2 (08:06→16:34)
--- NOTE | 2018-04-02 08:11 | NUR ---
PRN Ibuprofen 600 mg for headache #7-8/10 PRN Tylenol 650 mg PO for headache #7-8/10
[2018-04-02] MEDS ORDERED: BUPRENORPHINE HCL 2 MG TAB.SUBL SL SCH (09:00)
[2018-04-02] MEDS ORDERED: DIAZEPAM 5 MG TABLET PO SCH (09:00)
--- NOTE | 2018-04-02 09:15 | NUR ---
Reassess Ibuprofen and Tylenol- Pt reports headache improved, pain now #4/10. Pt is pacing the unit and goes to the patio.
[2018-04-02] MEDS ORDERED: PHEN32.43 PO (09:51)
[2018-04-02 12:00] VITALS: BP 149/96
[2018-04-02 16:00] VITALS: BP 135/94
--- NOTE | 2018-04-02 18:34 | NUR ---
End of shift Pt is here for medically supervised withdrawal of ETOH, benzos, and opiates. Pt completed 5 day Valium taper. He is also on a maintenance Subutex 8 mg BID. He is scheduled for discharge tomorrow. At 1600 last COWS 7, CIWA 10. PRNs given today; Ibuprofen and Tylenol. Patient c/o anxiety, nausea, fatigue, gross tremors, difficulty concentrating, anhedonia, head ache, flat affect and depressed mood. He is also demanding, labile and intrusive. Encouraged Pt to participate in group therapy sessions today to identify positive coping skills to maintain sobriety. PO fluids 3085 ml, voids x 6, no BM. All safety measures in place, bed locked/low position. Will continue to monitor for withdrawal symptoms.
--- NOTE | 2018-04-02 19:30 | NUR ---
Start of shift note Pt is a 37 year old male admitted on 03/28/18 for medically supervised ETOH, Benzo's and Opiate withdrawal. Pt is on fall and seizure precautions. Pt completed a 5 day Valium taper and he is on a maintenance Subutex 8mg dose BID. Pt's last COW was 7 and CIWA was 10. Per endorsement pt had PRN Motrin and Tylenol during day shift. Pt is scheduled for discharge tomorrow 04/03/18. Upon rounds pt was noted in room, AOx4. He was watching tv, explain plan of care and he verbalized understanding. Safety measures in please, bed lock in low position, side rails up x2, and call light within reach. Will continue to monitor.
[2018-04-02 20:00] VITALS: BP 136/67
[2018-04-02] MEDS: HYDROXYZINE PAMOATE 25 MG CAPSULE PO PRN (20:17)
[2018-04-02] MEDS: CLONIDINE HCL 0.1 MG TABLET PO PRN (20:17)
[2018-04-02] MEDS: QUETIAPINE FUMARATE 25 MG TABLET PO PRN (20:17)
--- NOTE | 2018-04-02 20:17 | NUR ---
PRN Vistaril, Seroquel and Clonidine Pt is presenting with anxiety, agitation and difficulty falling asleep. Administered PRN PRN Vistaril, Seroquel and Clonidine, pt tolerated well and will continue to monitor. Safety measures in place.
--- NOTE | 2018-04-02 21:17 | NUR ---
Reassessment PRN Vistaril, Seroquel and Clonidine Pt was noted in bed resting watching tv, breathing even and unlabored. Pt reported decreased anxiety and agitation. Pt reports he is going to sleep soon. Medication noted to be effective. Safety measures in place and will continue to monitor.
--- NOTE | 2018-04-03 07:25 | NUR ---
End of shift note Pt is a 37 year old male admitted on 03/28/18 for medically supervised ETOH, Benzo's and Opiate withdrawal. Pt is on fall and seizure precautions. Pt completed a 5 day Valium taper and he is on a maintenance Subutex 8mg dose BID. Pt's last COW was 6 and CIWA was 9. Pt had PRN Vistaril, Seroquel and Clonidine during this shift. Pt is being discharge today 04/03/18. Pt continues to present with anxiety and agitation. Pt is slept for 8 hrs and had a total intake of 1,710ml. Pt voided x2 and had no bowel movements during this shift. Pt was compliant with plan of care. Safety measures in please, bed lock in low position, side rails up x2, and call light within reach. Will endorse to day shift.
--- NOTE | 2018-04-03 07:30 | NUR ---
START OF SHIFT Received report from night nurse, 37 year old male admitted for ETOH,Benzo/Opioids withdrawals, patient completed his Valium taper and continues with modified Subutex taper tolerating well. Per endorsement patient received PRN Vistaril, Seroquel, Clonidine effective per night nurse, last CIWA-9, COWS-6, slept for 8 hours. Received patient alert awake oriented x4 vital signs WNL, patient schedule for discharge today. Patient reported little anxious about discharge, educated patient on relaxation techniques, patient verbalized understanding. All safety measures in place. Will cont with plan of care.
[2018-04-03 08:00] VITALS: BP 107/62
[2018-04-03] MEDS: GABAPENTIN 400 MG CAPSULE PO SCH (08:21)
[2018-04-03] MEDS: MULTIVITAMINS,THERAPEUTIC TABLET PO SCH (08:21)
[2018-04-03] MEDS: BUPRENORPHINE HCL 2 MG TAB.SUBL SL SCH (08:22)
--- NOTE | 2018-04-03 09:48 | NUR ---
DISCHARGE NOTE Patient has been discharged from [facility], patient is in stable condition. Vital signs WNL. Patient denies any SI/HI. All documentation has been completed, all discharge paper work signed and dated. Patient left with all of his belongings, medications,prescriptions. Patient has been discharge from [facility] on 04/03/18 at 0948. has been notified.
== END 2018-04-03 09:48 | disposition other institution (70) | DRG 895 ==
LOC: SRC 19:58
PROVIDERS: ADMIT Family Medicine Addiction Medicine; ATTEND Family Medicine Addiction Medicine
PROC: HZ2ZZZZ Detoxification Services for Substance Abuse Treatment (ICD-10-PCS; principal; 2018-03-28)
PROC: HZ31ZZZ Individual Counseling for Substance Abuse Treatment, Behavioral (ICD-10-PCS; 2018-03-29)
PROC: HZ41ZZZ Group Counseling for Substance Abuse Treatment, Behavioral (ICD-10-PCS; 2018-03-30)
DX: F10.230 Alcohol dependence with withdrawal, uncomplicated (principal); G40.509 Epileptic seizures related to external causes, not intractable, without status epilepticus; F11.23 Opioid dependence with withdrawal; Y90.0 Blood alcohol level of less than 20 mg/100 ml; F41.1 Generalized anxiety disorder; F13.230 Sedative, hypnotic or anxiolytic dependence with withdrawal, uncomplicated; G47.00 Insomnia, unspecified; F41.0 Panic disorder [episodic paroxysmal anxiety]; F17.210 Nicotine dependence, cigarettes, uncomplicated; F15.90 Other stimulant use, unspecified, uncomplicated; F32.9 Major depressive disorder, single episode, unspecified; B19.20 Unspecified viral hepatitis C without hepatic coma
CPT/HCPCS: 36415; 70030-TC; 80307; 80346; 80349; 83735; 84443; 85025; 86592; 86705; 86803; 87340; 87806; G0480; J8499